=== PATIENT | female | born 1940 | race Caucasian/White ===

== ENCOUNTER 2017-01-24 18:32 | Emergency (ER) | payer OTHER, MEDICAID ==
[~2017-01-24] VITALS: Ht 157.5 cm; Wt 104.6 kg
[~2017-01-24 18:32] MED LIST: ACET-654 PO; ALIG4CAP PO; AMIO200T PO; ASPI81TA85 PO; B COTAB3 PO; CARA1TAB6 PO; CLAR10CA3 PO; DEXI30CA PO; DEXI30CA2 PO; DOC-8.6T PO; FERR325T3 PO; FIRS1SOL3 PO; METO12TA PO; METO25TA2 PO; MIRA33504 PO; NAME28CA PO; PAME10CA PO; SYNT100T PO; SYNT50TA PO; VITA200038 PO; WARF-22 PO; WARF-23 PO; WARF5TAB66 PO; [UNRECOGNIZED DRUG - OTHER] PO; [UNRECOGNIZED DRUG - OTHER] TD
[2017-01-24] MEDS ORDERED: DOCQ100C PO (18:42)
[2017-01-24] MEDS ORDERED: DEXI30CA2 PO (18:42)
[2017-01-24] MEDS ORDERED: COUM10TA PO (18:43)
[2017-01-24] MEDS ORDERED: LEVO88TA3 PO (18:43)
[2017-01-24] MEDS ORDERED: COUM7.5T PO (18:43)
[2017-01-24 19:13] VITALS: BP 142/76
== END 2017-01-24 19:26 | disposition home or self-care (01) ==
LOC: M ED 18:32
DX: K13.79 Other lesions of oral mucosa (principal); I10 Essential (primary) hypertension; I48.91 Unspecified atrial fibrillation; Z79.01 Long term (current) use of anticoagulants; Z88.0 Allergy status to penicillin

== ENCOUNTER 2017-01-25 00:23 | Emergency (ER) | payer OTHER, MEDICAID ==
[~2017-01-25] VITALS: Ht 157.5 cm; Wt 99.0 kg
[~2017-01-25 00:23] MED LIST changes: +COUM10TA PO; +COUM7.5T PO; +DOCQ100C PO; +LEVO88TA3 PO
[2017-01-25] MEDS: PHYTONADIONE INJection 5 MG in NS 50 ML IV ONE (03:22)
[2017-01-25 03:50] VITALS: BP 174/83
[2017-01-25] MEDS ORDERED: SILVER NITRATE APPLICATOR TOP ONE (04:15)
[2017-01-25] MEDS ORDERED: CETACAINE SPRAY 20GM (FLOOR STOCK) As Ordered ONE (04:21)
[2017-01-25] MEDS ORDERED: CETACAINE SPRAY 20GM (FLOOR STOCK) TOP ONE (04:30)
== END 2017-01-25 04:58 | disposition home or self-care (01) ==
LOC: M ED 00:23
DX: K13.79 Other lesions of oral mucosa (principal); K00.6 Disturbances in tooth eruption; I10 Essential (primary) hypertension; I25.10 Atherosclerotic heart disease of native coronary artery without angina pectoris; I48.91 Unspecified atrial fibrillation; Z79.01 Long term (current) use of anticoagulants; Z79.899 Other long term (current) drug therapy; Z88.0 Allergy status to penicillin
CPT/HCPCS: 96374; 99283; J3430

== ENCOUNTER → 2017-02-03 | Outpatient (REF) | payer OTHER, MEDICAID ==
[2017-02-03 19:36] LABS: VITAMIN B12 LEVEL > 2000 PG/ML (247-911)
[2017-02-15 00:07] LABS: ACETYLCHOLINE RCPTOR BINDING A < 0.03 nmol/L (0.00-0.24); STRIATIONAL ANTIBODIES Negative (Neg:<1:40)
== END ==
LOC: M LABNEURO 17:19
PROVIDERS: ATTEND Psychiatry & Neurology Neurology
DX: R51 Headache (principal); H53.2 Diplopia; E03.9 Hypothyroidism, unspecified

== ENCOUNTER → 2019-02-12 | Outpatient (CLI) | payer MEDICARE, MEDICAID ==
[~2019-02-12] MED LIST changes: +CALC1CAP31 PO; -DOCQ100C PO; +DOCQ100C5 PO; -FIRS1SOL3 PO; +FIRS50SO PO; +MACR100C43 PO; +MECL-68 PO; -METO12TA PO; +METO1TAB63 PO; +NORT10CA2 PO
--- NOTE | 2019-02-12 08:40 | REP ---
Clinical: Hypertension and chronic medical renal disease. Technique: Sainz scale and color Doppler evaluation of the kidneys and renal vasculature using curved array transducer. Findings: The kidneys are essentially normal in contour size and echogenicity and reniform shape without hydronephrosis, nephrolithiasis, cystic or renal mass lesion. Right kidney measures 8.9 x 5.8 x 4.2 cm. Left kidney measures 8.5 x 4.4 x 4.1 cm. Bladder is incompletely distended and grossly normal by current evaluation. Color Doppler evaluation of the renal vasculature demonstrates normal arterial wave patterns, velocities, renal aortic ratios, resistive indices and the acceleration time. No sonographic evidence for renal arterial stenosis noted. Renal vein is patent. Right Kidney: Peak arterial velocity: 199 cm/sec . Renal aortic ratio: 2.6. Resistive indices: 0.57 - 0.75. Acceleration times: 0.04 - 0.05. Left kidney: Peak arterial velocity: 115 cm/sec. Renal aortic ratio: 1.5. Resistive indices: 0.64 - 0.69. Acceleration times: 0.04 - 0.06. Impression: Chronic medical renal disease. Right sided renal arterial stenosis suggested. Electronically Signed by Gallo Bronson MD 02/12/2019 08:32 A
== END ==
LOC: M RAD 07:08
PROVIDERS: ATTEND Internal Medicine Nephrology
DX: N18.3 Chronic kidney disease, stage 3 (moderate) (principal); I15.0 Renovascular hypertension

== ENCOUNTER 2019-02-19 11:55 | Emergency (ER) | payer MEDICARE, MEDICAID ==
[~2019-02-19] VITALS: Ht 157.5 cm; Wt 95.7 kg
[~2019-02-19 11:55] MED LIST changes: -CALC1CAP31 PO; -MACR100C43 PO; -MECL-68 PO; -NORT10CA2 PO
[2019-02-19] MEDS ORDERED: CALC1CAP31 PO (12:15)
[2019-02-19] MEDS ORDERED: NORT10CA2 PO (12:15)
[2019-02-19 16:46] LABS: BASO # 0.1 10^3/uL (0.0-0.2); BASO % 0.8 % (0.0-1.0); EOS # 0.2 10^3/uL (0.0-0.50); EOS % 2.7 % (0.0-3.0); HEMATOCRIT 44.5 % (36.0-47.0); HEMOGLOBIN 14.2 g/dl (12.0-15.5); LYMPH # 1.4 10^3/uL (1.5-4.5); MEAN CORPUSCULAR HEMOGLOBIN 29.9 pg (27.0-33.0); MEAN CORPUSCULAR HGB CONC 31.9 g/dl (32.0-36.5); MEAN CORPUSCULAR VOLUME 93.7 fl (80.0-96.0); MONO # 0.6 10^3/uL (0.0-0.8); MONO % 10.2 % (0.0-5.0); NEUTROPHILS # 3.8 10^3/uL (1.8-7.7); PLATELET COUNT, AUTOMATED 190 10^3/uL (150-450); RED BLOOD COUNT 4.75 10^6/uL (4.00-5.40)
[2019-02-19 17:20] LABS: CALCIUM LEVEL 9.7 MG/DL (8.8-10.2); CREATININE FOR GFR 2.75 MG/DL (0.55-1.30); GLOMERULAR FILTRATION RATE 17.7 (>32); POTASSIUM SERUM 5.3 MEQ/L (3.5-5.1)
[2019-02-19] MEDS ORDERED: NS 1,000 ML IV ONE (17:30)
[2019-02-19 18:03] LABS: APPEARANCE, URINE HAZY (CLEAR); BACTERIA, URINE AUTO 3+ (NEGATIVE); BILIRUBIN, URINE AUTO NEGATIVE (NEGATIVE); BLOOD, URINE BLOOD 2+ (NEGATIVE); COLOR, URINE YELLOW (YELLOW); GLUCOSE, URINE (UA) AUTO NEGATIVE (NEGATIVE); KETONE, URINE AUTO NEGATIVE (NEGATIVE); LEUKOCYTE ESTERASE, URINE AUTO 1+ (NEGATIVE); NITRITE, URINE AUTO NEGATIVE (NEGATIVE); PROTEIN, URINE AUTO NEGATIVE (NEGATIVE); RBC, URINE AUTO 3 /HPF (0-3); SPECIFIC GRAVITY URINE AUTO 1.008 (1.002-1.035); SQUAMOUS EPITHELIAL CELL UR AU 2 /HPF (0-6); UROBILINOGEN, URINE AUTO 0.2 mg/dL (0.0-2.0); WBC, URINE AUTO 19 /HPF (0-3)
[2019-02-19 20:25] VITALS: BP 108/59
[2019-02-19] MEDS ORDERED: MACR100C43 PO (20:33)
--- NOTE | 2019-02-20 08:08 | ECGEPIP ---
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
== END 2019-02-19 20:45 | disposition home or self-care (01) ==
LOC: M ED 11:55
DX: E86.0 Dehydration (principal); N39.0 Urinary tract infection, site not specified; I12.9 Hypertensive chronic kidney disease with stage 1 through stage 4 chronic kidney disease, or unspecified chronic kidney disease; N18.4 Chronic kidney disease, stage 4 (severe); I48.91 Unspecified atrial fibrillation; K21.9 Gastro-esophageal reflux disease without esophagitis; E03.9 Hypothyroidism, unspecified; Z79.899 Other long term (current) drug therapy; Z79.890 Hormone replacement therapy; Z79.01 Long term (current) use of anticoagulants; Z88.0 Allergy status to penicillin; Z88.1 Allergy status to other antibiotic agents; Z88.8 Allergy status to other drugs, medicaments and biological substances

== ENCOUNTER 2019-02-21 21:14 | Emergency (ER) | payer MEDICARE, MEDICAID ==
[~2019-02-21] VITALS: Ht 157.5 cm; Wt 95.5 kg
[~2019-02-21 21:14] MED LIST changes: +CALC1CAP31 PO; +MACR100C43 PO; +NORT10CA2 PO
[2019-02-21] MEDS ORDERED: NS 1,000 ML IV SCH (21:47)
[2019-02-21 21:57] LABS: BASO % 0.6 % (0.0-1.0); EOS # 0.2 10^3/uL (0.0-0.50); EOS % 3.2 % (0.0-3.0); HEMATOCRIT 41.3 % (36.0-47.0); HEMOGLOBIN 12.9 g/dl (12.0-15.5); LYMPH # 1.3 10^3/uL (1.5-4.5); LYMPH % 18.3 % (24.0-44.0); MEAN CORPUSCULAR HGB CONC 31.2 g/dl (32.0-36.5); MONO # 0.8 10^3/uL (0.0-0.8); MONO % 11.1 % (0.0-5.0); NEUTROPHILS # 4.5 10^3/uL (1.8-7.7); NEUTROPHILS % 66.4 % (36.0-66.0); PLATELET COUNT, AUTOMATED 185 10^3/uL (150-450); WHITE BLOOD COUNT 6.8 10^3/uL (4.0-10.0)
[2019-02-21] MEDS ORDERED: MECLIZINE 25 MG TABLET PO ONE (22:00)
[2019-02-21 22:22] LABS: ACETAMINOPHEN LEVEL < 2.0 UG/ML (10.0-30.0); ALBUMIN 3.6 GM/DL (3.2-5.2); ALT/SGPT 30 U/L (12-78); BILIRUBIN,DIRECT 0.1 MG/DL (0.0-0.2); BILIRUBIN,TOTAL 0.3 MG/DL (0.2-1.0); BLOOD UREA NITROGEN 54 MG/DL (7-18); CALCIUM LEVEL 8.8 MG/DL (8.8-10.2); CARBON DIOXIDE LEVEL 21 MEQ/L (21-32); CHLORIDE LEVEL 107 MEQ/L (98-107); CK-MB VALUE MASS 1.5 NG/ML (<3.6); CPK CREATINE PHOSPHOKINASE 59 U/L (26-192); CREATININE FOR GFR 2.63 MG/DL (0.55-1.30); GLOMERULAR FILTRATION RATE 18.6 (>32); GLUCOSE, FASTING 91 MG/DL (70-100); MB/CK RELATIVE INDEX 2.54 (< OR =4); POTASSIUM SERUM 4.7 MEQ/L (3.5-5.1); SALICYLATE LEVEL < 1.7 MG/DL (5.0-30.0); SODIUM LEVEL 137 MEQ/L (136-145); TOTAL PROTEIN 7.4 GM/DL (6.4-8.2); TROPONIN I < 0.02 NG/ML (< 0.10)
--- NOTE | 2019-02-21 22:30 | REPVR ---
EXAM: CT Head Without Contrast EXAM DATE/TIME: 02/21/2019 10:14 PM CLINICAL HISTORY: 78 years old, female; Altered mental status/memory loss TECHNIQUE: Imaging protocol: Computed tomography images of the head without contrast. Radiation optimization: All CT scans at this facility use at least one of these dose optimization techniques: automated exposure control; mA and/or kV adjustment per patient size (includes targeted exams where dose is matched to clinical indication); or iterative reconstruction. COMPARISON: CT Head without contrast 06/30/2012 11:18 AM FINDINGS: Brain: Moderate parenchymal atrophy consistent with patient age. No significant white matter disease. Ventricles: The degree of ventricular dilatation is normal for age. No pathologic enlargement demonstrated. Bones/joints: Unremarkable. No acute fracture. Sinuses: Visualized sinuses are unremarkable. No fluid levels. Mastoid air cells: Visualized mastoid air cells are well aerated. No mastoid effusion. Soft tissues: Unremarkable. IMPRESSION: No acute findings. Electronically signed by: Jose Marroquin On 02/21/2019 22:29:54 PM
[2019-02-21 22:46] VITALS: BP 143/63
[2019-02-21] MEDS ORDERED: MECL-68 PO (22:52)
--- NOTE | 2019-02-22 05:45 | ECGEPIP ---
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
== END 2019-02-21 23:33 | disposition home or self-care (01) ==
LOC: M ED 21:14
DX: R42 Dizziness and giddiness (principal); I48.91 Unspecified atrial fibrillation; I10 Essential (primary) hypertension; K21.9 Gastro-esophageal reflux disease without esophagitis; E03.9 Hypothyroidism, unspecified; N18.9 Chronic kidney disease, unspecified; Z79.01 Long term (current) use of anticoagulants; Z79.899 Other long term (current) drug therapy; Z88.0 Allergy status to penicillin; Z88.1 Allergy status to other antibiotic agents; Z88.8 Allergy status to other drugs, medicaments and biological substances
CPT/HCPCS: 70450; 80048; 80076; 81001; 82140; 82550; 82553; 84443; 84484; 85025; 93005; 93041; 94760; 96360; 99284; G0480

== ENCOUNTER → 2019-03-30 | Outpatient (REF) | payer MEDICARE, MEDICAID ==
[~2019-03-30] MED LIST changes: +MECL-68 PO
[2019-03-30 17:12] LABS: FOLATE 8.6 NG/ML
[2019-04-04 15:15] LABS: VITAMIN B1 LEVEL WHOLE BLOOD 262.8 nmol/L (66.5-200.0); VITAMIN B6,PYRIDOXAL PHOSPHATE 4.7 ug/L (2.0-32.8); VITAMIN E(ALPHA TOCOPHEROL) 11.3 mg/L (9.0-29.0); VITAMIN E(GAMMA TOCOPHEROL) 1.6 mg/L (0.5-4.9)
== END ==
LOC: M LAB REF 16:33
PROVIDERS: ATTEND Family Medicine
DX: E53.8 Deficiency of other specified B group vitamins (principal)

== ENCOUNTER 2019-05-24 13:26 | Emergency (ER) | payer MEDICARE, MEDICAID ==
[~2019-05-24] VITALS: Ht 157.5 cm; Wt 91.8 kg
[~2019-05-24 13:26] MED LIST changes: +NIFE60TA40 PO; +TRIA37.53 PO
[2019-05-24 14:18] LABS: BASO % 0.6 % (0.0-1.0); EOS # 0.2 10^3/uL (0.0-0.5); EOS % 2.9 % (0.0-3.0); HEMATOCRIT 39.9 % (36.0-47.0); HEMOGLOBIN 12.3 g/dl (12.0-15.5); LYMPH # 1.2 10^3/uL (1.5-5.0); LYMPH % 19.5 % (24.0-44.0); MEAN CORPUSCULAR HEMOGLOBIN 30.8 pg (27.0-33.0); MEAN CORPUSCULAR HGB CONC 30.8 g/dl (32.0-36.5); MEAN CORPUSCULAR VOLUME 99.8 fl (80.0-96.0); MONO # 0.5 10^3/uL (0.0-0.8); NEUTROPHILS # 4.3 10^3/uL (1.5-8.5); NEUTROPHILS % 68.7 % (36.0-66.0); PLATELET COUNT, AUTOMATED 183 10^3/uL (150-450); WHITE BLOOD COUNT 6.2 10^3/uL (4.0-10.0)
[2019-05-24 14:38] VITALS: BP 163/83
[2019-05-24 14:47] LABS: ALBUMIN 3.4 GM/DL (3.2-5.2); ALT/SGPT 22 U/L (12-78); BILIRUBIN,DIRECT 0.1 MG/DL (0.0-0.2); BILIRUBIN,TOTAL 0.3 MG/DL (0.2-1.0); BLOOD UREA NITROGEN 44 MG/DL (7-18); CALCIUM LEVEL 8.4 MG/DL (8.8-10.2); CARBON DIOXIDE LEVEL 21 MEQ/L (21-32); CHLORIDE LEVEL 113 MEQ/L (98-107); CK-MB VALUE MASS 1.4 NG/ML (<3.6); CPK CREATINE PHOSPHOKINASE 60 U/L (26-192); CREATININE FOR GFR 1.98 MG/DL (0.55-1.30); GLOMERULAR FILTRATION RATE 25.8 (>32); GLUCOSE, FASTING 97 MG/DL (70-100); MB/CK RELATIVE INDEX 2.33 (< OR =4); POTASSIUM SERUM 4.7 MEQ/L (3.5-5.1); SODIUM LEVEL 142 MEQ/L (136-145); TOTAL PROTEIN 7.4 GM/DL (6.4-8.2); TROPONIN I < 0.02 NG/ML (< 0.10)
[2019-05-24 15:38] VITALS: BP 157/76
[2019-05-24] MEDS ORDERED: NAME28CA PO (23:38)
[2019-05-24] MEDS ORDERED: NORT10CA2 PO (23:38)
[2019-05-24] MEDS ORDERED: METO25TA4 PO (23:38)
[2019-05-24] MEDS ORDERED: WARF-23 PO ×2 (23:38)
[2019-05-24] MEDS ORDERED: VITA50005 PO (23:38)
[2019-05-24] MEDS ORDERED: DOCU100C16 PO (23:38)
[2019-05-24] MEDS ORDERED: NIFE60TA40 PO (23:38)
--- NOTE | 2019-05-25 07:54 | ECGEPIP ---
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
== END 2019-05-24 15:40 | disposition home or self-care (01) ==
LOC: M ED 13:26
DX: I10 Essential (primary) hypertension (principal); I48.91 Unspecified atrial fibrillation; I45.89 Other specified conduction disorders; N18.9 Chronic kidney disease, unspecified; I51.9 Heart disease, unspecified; Z79.01 Long term (current) use of anticoagulants; Z79.899 Other long term (current) drug therapy; Z88.0 Allergy status to penicillin; Z88.8 Allergy status to other drugs, medicaments and biological substances

== ENCOUNTER 2019-05-24 22:19 | Inpatient (IN) | payer MEDICARE, MEDICAID ==
[~2019-05-24] VITALS: Ht 157.5 cm; Wt 90.9 kg
[2019-05-24 23:25] LABS: CK-MB VALUE MASS 1.2 NG/ML (<3.6); CPK CREATINE PHOSPHOKINASE 67 U/L (26-192); MB/CK RELATIVE INDEX 1.79 (< OR =4); TROPONIN I < 0.02 NG/ML (< 0.10)
[2019-05-24] MEDS ORDERED: NIFE60TA40 PO (23:38)
[2019-05-24] MEDS ORDERED: DOCU100C16 PO (23:38)
[2019-05-24] MEDS ORDERED: WARF-23 PO ×2 (23:38)
[2019-05-24] MEDS ORDERED: VITA50005 PO (23:38)
[2019-05-24] MEDS ORDERED: METO25TA4 PO (23:38)
[2019-05-24] MEDS ORDERED: NAME28CA PO (23:38)
[2019-05-24] MEDS ORDERED: NORT10CA2 PO (23:38)
[2019-05-24] MEDS ORDERED: ACETAMINOPHEN TAB 650MG DOSE (2X325MG) PO PRN (23:45)
--- NOTE | 2019-05-24 23:58 | HPEPDOC ---
[facility] Medical History & Physical Date of Admission May 24, 2019 Date of Service: May 24, 2019 Attending Physician: BLANCA BILLINGSLEY MD History and Physical CHIEF COMPLAINT: hypotension HISTORY OF PRESENT ILLNESS: Lavinia Luis is an 78 YO F with history of AF & CKDIV who presents to the ED for the third time in 3 days with complaints of lightheadedness, dizziness, and low blood pressure. She first reported to the ED on 05/23/2019 for hypotension of 77/45 in the setting of recent initiation of nifedipine ER 60 mg therapy by nephrology for hypertension. She was stabilized, sent home and returned back on the morning of 05/24/2019 with hypertension. She was given Cardizem 15 mg IV and sent home. This evening she reported lightheadedness and dizziness and generalized pain, which prompted a third ER visit where she was found to have a pressure 104/60. She is admitted for blood pressure monitoring and adjustment of medications at this time. REVIEW OF SYSTEMS: CONSTITUTIONAL: Reports some lightheadedness, dizziness HEENT: denies vision changes, no sinus problems, denies any trouble swallowing CARDIOVASCULAR: no palpitations RESPIRATORY: Denies any shortness of breath GENITOURINARY: No dysuria MUSCULOSKELETAL: Denies any joint/muscle pain GASTROINTESTINAL: Denies abdominal pain, no nausea/vomiting/diarrhea SKIN: No new rashes or lesions NEUROLOGICAL: No loss of sensation PSYCHIATRIC: Reports normal mood, no delusions or hallucinations ENDOCRINE: No hot/cold intolerance HEMATOLOGIC/LYMPHATIC: No easy bruising, no lumps/bumps ALLERGIC/IMMUNOLOGIC: No sinus symptoms PMHx: CKD Hiatal hernia Hypertension Iron deficiency anemia Paroxysmal atrial fibrillation with cardioversion 3 on Coumadin Hypothyroidism History of C. 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 HOME MEDICATIONS: Please see below. PHYSICAL EXAMINATION: VITAL SIGNS: Please see below. GENERAL APPEARANCE: Laying in bed, appears stated age, no acute distress, calm, cooperative HEENT: EOMI, PERRLA, neck is supple with no thyromegaly or lymphadenopathy RESPIRATORY: Lungs are clear to auscultation bilaterally with no adventitious breath sounds appreciated CARDIOVASCULAR: no JVD, irregularly irregular heart beat,no murmurs/rubs/gallops ABDOMEN: Soft, nontender to palpation in all four quadrants, no masses/organomegaly EXTREMITIES: no clubbing, cyanosis or edema noted NEUROLOGICAL: No obvious focal deficits PSYCHIATRIC: normal mood/affect Skin: No rashes or ulcers. LN: No significant cervical or inguinal lymphadenopathy LABORATORY DATA: See below. IMAGING: None MICROBIOLOGY: Please see below. ASSESSMENT: This is an 78-year-old female with atrial fibrillation and CKD4, who presents with hypotension secondary to medication side effect and will be admitted for observation overnight. PLAN: 1. Hypotension: Patient is symptomatic at this time. Likely secondary to new medication, nifedipine started last Friday. -Will hold nifedipine at this time -Holding metoprolol for the time being -Every 4 hour blood pressure checks -Continuous telemetry 2. Atrial fibrillation on Coumadin: -Rate is controlled at this time. Holding metoprolol but will restart if needed -Patient will reportedly be switched to Eliquis by nephrology in the near future 3. Hypothyroidism: -Continue home levothyroxine 4.. GERD: -Continue home Carafate 5. Iron deficiency anemia: -Continue ferrous sulfate 6. CKD4: -Will work towards optimal blood pressure control 7. Alzheimer's disease: -Continue home Namenda 8.Obesity BMI 36.7 complicates care DISPO: likely home tomorrow Vital Signs Vital Signs Date Time Temp Pulse Resp B/P (MAP) Pulse Ox O2 Delivery O2 Flow Rate FiO2 05/24/19 22:23 97.5 61 18 104/60 96 Room Air Laboratory Data Labs 24H Laboratory Tests 2 05/24/19 22:45: Home Medications Scheduled Bifidobacterium Infantis (Align) 4 Mg Cap, 4 MG PO DAILY Calcitriol (Calcitriol) 0.25 Mcg Capsule, 0.25 MCG PO DAILY Cholecalciferol (Vitamin D3) (Vitamin D3) 2,000 Unit Tab, 2,000 UNIT PO DAILY Docusate Sodium (Docusate Sodium) 100 Mg Capsule, 100 MG PO BID Ergocalciferol (Vitamin D2) (Vitamin D2) 50,000 Unit Capsule, 50,000 UNIT PO Q2WK EVERY OTHER FRIDAY Ferrous Sulfate (Ferrous Sulfate) 325 Mg Tab, 325 MG PO DAILY Levothyroxine Sodium (Levothyroxine Sodium) 88 Mcg Tab, 88 MCG PO DAILY Memantine HCl (Namenda Xr) 28 Mg Cap.spr.24, 28 MG PO DAILY Metoprolol Tartrate (Metoprolol Tartrate) 25 Mg Tablet, 12.5 MG PO BID Nifedipine (Nifedipine ER) 60 Mg Tablet.er, 60 MG PO DAILY Nortriptyline HCl (Nortriptyline HCl) 10 Mg Capsule, 10 MG PO QHS Sucralfate (Carafate) 1 Gm Tab, 1 GM PO DAILY Warfarin Sodium (Warfarin Sodium) 5 Mg Tablet, 7.5 MG PO 3XW FRIDAY, FRIDAY AND FRIDAY Warfarin Sodium (Warfarin Sodium) 5 Mg Tablet, 10 MG PO 4XWK FRIDAY, FRIDAY, FRIDAY AND FRIDAY Allergies Coded Allergies: Penicillins (Verified Allergy, Intermediate, hives, 05/24/19) clindamycin (Verified Adverse Reaction, Unknown, abdominal pain, 05/24/19) triamterene (Verified Adverse Reaction, Unknown, "couldn't hold my head up", 05/24/19) A-FIB/CHADSVASC A-FIB History Current/History of A-Fib/PAF?: Yes Current PO Anticoag Therapy: Yes GME ATTESTATION GME ATTESTATION My faculty preceptor for this patient encounter was physically present during the encounter and was fully available. All aspects of the patient interview, examination, medical decision making process, and medical care plan development were reviewed and approved by the faculty preceptor. The faculty preceptor is aware and concurs with the plan as stated in the body of this note and will attest to such by his/her cosignature. ATTENDING NOTE I saw at 1150PM, discussed the case with and agree with the following with the addition of the following: The history was obtained from Simone Grant who has evaluated the patient in the ER several times over the last few days. is an 78 yr old F w a PMH of HTN Afib and Hypothyroidism who was started on nifedipine 60mg daily on Friday bc her BP was high while taking Metoprolol 12.5mg BID. On Sat she came to the hospital because she was not feeling well and was found to have a BP of 77/45; she was given IVF and told to hold her nifedipine. On Friday she checked her BP and found that it was 199/110 she took her nifedipine and then came to the hospital; at the time she didn't have a RIBEIRO, CP or any other symptoms; her EKG and trop were unremarkable; she was given 15mg of IV cardizem and her BP improved to approx 130/70; prior to being discharged her repeat BP was 156/76. When she got home she did not feel well and decided to come to the ER again; on re-evaluation her BP was 104/60. #Symptomatic Hypotension Likely due to ADR to meds as she took Metoprolol Tartrate 12.5mg BID and, Nifedipine 60mg before coming to the ED and where she received 15mg of IV Cardizem. Plan: We will admit her for observation overnight, resume Metoprolol 12.25mg and Nifedpine 30mg ER (which is half the normal dose) in the morning and resume her nifedipine at a lower dose (30mg daily) rather than 60mg daily. She can follow up with or her PCP for an ambulatory blood pressure monitor. RJ NIETO MD May 24, 2019 23:00 BLANCA BILLINGSLEY MD May 25, 2019 00:28
[2019-05-25] VITALS (11 sets, daily range): BP systolic 104–176; BP diastolic 57–97
[2019-05-25 00:33] LABS: HEMATOCRIT 39.7 % (36.0-47.0); MEAN CORPUSCULAR HEMOGLOBIN 30.7 pg (27.0-33.0); MEAN CORPUSCULAR HGB CONC 30.2 g/dl (32.0-36.5); MEAN CORPUSCULAR VOLUME 101.5 fl (80.0-96.0); PLATELET COUNT, AUTOMATED 173 10^3/uL (150-450); RED BLOOD COUNT 3.91 10^6/uL (4.00-5.40)
[2019-05-25 01:11] LABS: ALBUMIN 3.3 GM/DL (3.2-5.2); BILIRUBIN,TOTAL 0.3 MG/DL (0.2-1.0); CALCIUM LEVEL 8.6 MG/DL (8.8-10.2); CREATININE FOR GFR 2.24 MG/DL (0.55-1.30); GLOMERULAR FILTRATION RATE 22.4 (>32); POTASSIUM SERUM 4.8 MEQ/L (3.5-5.1); TOTAL PROTEIN 7.1 GM/DL (6.4-8.2)
[2019-05-25 06:37] LABS: INR 3.07; PROTHROMBIN TIME 31.6 SECONDS (11.8-14.0)
[2019-05-25] MEDS: FERROUS SULFATE 325MG TAB PO SCH (08:32)
[2019-05-25] MEDS: CALCITRIOL 0.25 MCG CAP (S0169) PO SCH (08:32)
[2019-05-25] MEDS: LEVOTHYROXINE 88MCG TABLET (0.088 MG) PO SCH (08:32)
[2019-05-25] MEDS: SUCRALFATE 1 GM TAB PO SCH (08:32)
[2019-05-25] MEDS: VITAMIN D 1,000 INTERNATIONAL UNITS TABLET PO SCH (08:32)
[2019-05-25] MEDS: DOCUSATE SODIUM 100 MG CAP PO SCH ×2 (08:32→20:54)
[2019-05-25] MEDS: WARFARIN SOD 5 MG TAB PO SCH (16:24)
--- NOTE | 2019-05-25 19:58 | IPNPDOC ---
Text Note Date of Service The patient was seen on 05/25/19. NOTE Subjective: -Feels ok, no complaints but concerned about potential discharge without fixing her labile BPs and the failed outpatient optimization -Daughter Mid PM had +orthostatic vitals for BP without corresponding changes in HR and has been labile throughout the day, asymptomatic throughout Objective: VITAL SIGNS: See below. Hemodynamically stable but labile throughout the day, afebrile, normal rate, stable on room air GENERAL APPEARANCE: Laying in bed comfortably, no acute distress, calm, cooperative, engaged in conversation HEENT: NCAT, EOMI, PERRLA, neck is supple with no thyromegaly or lymphadenopathy RESPIRATORY: Lungs are clear to auscultation bilaterally with no rales, rhonchi or wheezing CARDIOVASCULAR: no JVD, irregularly irregular heart beat,no murmurs/rubs/gallops ABDOMEN: Normoactive bowel sounds, soft, nontender to palpation, no masses/organomegaly palpated EXTREMITIES: No LE edema, WWP with palpable DP pulses NEUROLOGICAL: No obvious focal deficits PSYCHIATRIC: normal mood/affect Skin: No rashes or ulcers, with LE varicosities noted LABORATORY DATA: See below. Reviewed. Cr 2.24 essentially at baseline. CBC wnl. IMAGING: None MICROBIOLOGY: Please see below. ASSESSMENT: 78-year-old female with atrial fibrillation and CKD4, who presents with hypotension shortly after starting nifedipine for hypertension and noted to have some labile BPs today with inconsistent asymptomatic orthostatic vitals currently admitted for BP medication optimization. PLAN: 1. Hypotension: Patient is asymptomatic at this time. -Continue holding nifedipine at this time -Restarted metoprolol and will monitor and consider starting nifedipine at a lower dose after noted baseline on metoprolol provided orthostatics remain negative and there is no lability. -Continue Q4H BP checks -Continue telemetry 2. Atrial fibrillation on Coumadin: -Rate is controlled at this time. -Will not restart metop -Nephrology plan had been to switch to Eliquis but for now is therapeutic on warfarin and will continue it per outpatient script 3. Hypothyroidism: -Continue home levothyroxine 4.. GERD: -Continue home Carafate 5. Iron deficiency anemia: -Continue ferrous sulfate 6. CK D4: -stable 7. Alzheimer's disease: -Continue home Namenda DISPO: Pending improvement in BP on stable dose of medication Qing GIBSON I+O VS, Fishbone, I+O Laboratory Tests 05/25/19 00:25 Vital Signs Date Time Temp Pulse Resp B/P (MAP) Pulse Ox O2 Delivery O2 Flow Rate FiO2 05/25/19 18:44 97.5 75 16 130/65 (86) 100 Room Air MARLENE CELESTIN MD May 25, 2019 19:57
[2019-05-25] MEDS: METOPROLOL TART 12.5 MG PER 1/2 TAB PO SCH (20:53)
[2019-05-25] MEDS: NORTRIPTYLINE 10 MG CAP PO SCH (20:53)
--- NOTE | 2019-05-25 23:11 | ECGEPIP ---
[facility] - ED Test Date: 2019-05-24 Pat Name: CASTILLO SEBASTIAN Department: Room: [place] [address] Gender: Female Brainer: bridgette : 1940 Requested By: MAHENDRA LE Order Number: [id number] Reading MD: Hakan Vela Measurements Intervals [place] Rate: 68 P: [place]: 0 QRS: 13 QRSD: 87 T: 56 QT: 417 QTc: 446 Interpretive Statements ATRIAL FIBRILLATION NSTTW ABNORMALITIES SIMILAR TO PRIOR ON SAME DATE Electronically Signed on 05-25-2019 23:10:51 EST by Hakan Vela
[2019-05-26] VITALS (10 sets, daily range): BP systolic 91–178; BP diastolic 62–104
[2019-05-26] MEDS: LEVOTHYROXINE 88MCG TABLET (0.088 MG) PO SCH (05:34)
[2019-05-26 06:23] LABS: HEMATOCRIT 41.6 % (36.0-47.0); HEMOGLOBIN 12.6 g/dl (12.0-15.5); MEAN CORPUSCULAR HEMOGLOBIN 30.4 pg (27.0-33.0); MEAN CORPUSCULAR HGB CONC 30.3 g/dl (32.0-36.5); MEAN CORPUSCULAR VOLUME 100.5 fl (80.0-96.0); PLATELET COUNT, AUTOMATED 174 10^3/uL (150-450); RED BLOOD COUNT 4.14 10^6/uL (4.00-5.40); WHITE BLOOD COUNT 5.5 10^3/uL (4.0-10.0)
[2019-05-26 06:36] LABS: INR 2.94; PROTHROMBIN TIME 30.5 SECONDS (11.8-14.0)
[2019-05-26 06:51] LABS: CALCIUM LEVEL 9.4 MG/DL (8.8-10.2); CREATININE FOR GFR 1.96 MG/DL (0.55-1.30); GLOMERULAR FILTRATION RATE 26.1 (>32); POTASSIUM SERUM 4.8 MEQ/L (3.5-5.1)
[2019-05-26] MEDS: SUCRALFATE 1 GM TAB PO SCH ×2 (09:00→09:36)
[2019-05-26] MEDS: VITAMIN D 1,000 INTERNATIONAL UNITS TABLET PO SCH (09:36)
[2019-05-26] MEDS: CALCITRIOL 0.25 MCG CAP (S0169) PO SCH (09:37)
[2019-05-26] MEDS: DOCUSATE SODIUM 100 MG CAP PO SCH ×2 (09:37→20:56)
[2019-05-26] MEDS: FERROUS SULFATE 325MG TAB PO SCH (09:37)
[2019-05-26] MEDS: METOPROLOL TART 12.5 MG PER 1/2 TAB PO SCH ×2 (09:38→20:56)
--- NOTE | 2019-05-26 16:09 | IPNPDOC ---
Text Note Date of Service The patient was seen on 05/26/19. NOTE Subjective: Today denies any dizziness or light headedness. However very pos itive for orthostatic hypotension with supine hypertension[facility] Objective: VITAL SIGNS: See below. GENERAL APPEARANCE: Siting up in chair in no acute distress, calm, cooperative, engaged in conversation HEENT: NCAT, EOMI, PERRLA, neck is supple with no thyromegaly or lymphadenopathy RESPIRATORY: Lungs are clear to auscultation bilaterally with no rales, rhonchi or wheezing CARDIOVASCULAR: no JVD, irregularly irregular heart beat,no murmurs/rubs/gallops ABDOMEN: Normoactive bowel sounds, soft, nontender to palpation, no masses/organomegaly palpated EXTREMITIES: No LE edema, WWP with palpable DP pulses NEUROLOGICAL: No obvious focal deficits PSYCHIATRIC: normal mood/affect Skin: No rashes or ulcers, with LE varicosities noted LABORATORY DATA reviewed : See below ASSESSMENT: 78-year-old female with atrial fibrillation and CKD4, who presents with hypotension shortly after starting nifedipine for hypertension and noted to have some labile BPs today with inconsistent asymptomatic orthostatic vitals currently admitted for BP medication optimization. Hypotension resolved after stopping nifedipine. in fact has supine hypertension. However continues to have orthostatic hypotension though no symptoms. continue metoprolol Have consulted Nephrology on Tele. Atrial fibrillation on Coumadin: rate controlled will continue metoprolol Hypothyroidism: Continue home levothyroxine GERD: Continue home Carafate Iron deficiency anemia: Continue ferrous sulfate CKD4: stable Alzheimer's disease: Continue home Namenda DISPO: Pending improvement in BP on stable dose of medication VSQing, I+O VSQing, I+O Laboratory Tests 05/26/19 05:58 Vital Signs Date Time Temp Pulse Resp B/P (MAP) Pulse Ox O2 Delivery O2 Flow Rate FiO2 05/26/19 14:38 60 156/74 (101) 66 154/74 (100) 66 97/62 (74) 05/26/19 13:45 96.6 16 100 Room Air I&O- Last 24 Hours up to 6 AM 05/26/19 06:00 Intake Total 2470 ml Output Total 0 ml Balance 2470 ml HILL SALOMON MD May 26, 2019 16:09
[2019-05-26] MEDS ORDERED: WARFARIN SOD 5 MG TAB PO SCH (17:00)
[2019-05-26] MEDS: MEMANTINE 28 MG PO SCH (17:25)
[2019-05-26] MEDS: NORTRIPTYLINE 10 MG CAP PO SCH (20:56)
[2019-05-27 02:00] VITALS: BP 144/82
[2019-05-27] MEDS: LEVOTHYROXINE 88MCG TABLET (0.088 MG) PO SCH (05:51)
[2019-05-27 06:00] VITALS: BP_SYST 103; BP_SYST 156; BP_SYST 162; BP_SYST 165; BP_DIAS 74; BP_DIAS 82; BP_DIAS 83
[2019-05-27 06:38] LABS: HEMATOCRIT 38.3 % (36.0-47.0); HEMOGLOBIN 11.6 g/dl (12.0-15.5); MEAN CORPUSCULAR HEMOGLOBIN 30.2 pg (27.0-33.0); MEAN CORPUSCULAR HGB CONC 30.3 g/dl (32.0-36.5); MEAN CORPUSCULAR VOLUME 99.7 fl (80.0-96.0); PLATELET COUNT, AUTOMATED 162 10^3/uL (150-450); RED BLOOD COUNT 3.84 10^6/uL (4.00-5.40); WHITE BLOOD COUNT 5.4 10^3/uL (4.0-10.0)
[2019-05-27 06:46] LABS: INR 3.1; PROTHROMBIN TIME 31.9 SECONDS (11.8-14.0)
--- NOTE | 2019-05-27 06:50 | ECGEPIP ---
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
[2019-05-27 07:08] LABS: CALCIUM LEVEL 8.7 MG/DL (8.8-10.2); CREATININE FOR GFR 1.89 MG/DL (0.55-1.30); GLOMERULAR FILTRATION RATE 27.2 (>32); POTASSIUM SERUM 4.8 MEQ/L (3.5-5.1)
[2019-05-27] MEDS: CALCITRIOL 0.25 MCG CAP (S0169) PO SCH (09:41)
[2019-05-27] MEDS: DOCUSATE SODIUM 100 MG CAP PO SCH ×2 (09:41→20:28)
[2019-05-27] MEDS: MEMANTINE 28 MG PO SCH (09:41)
[2019-05-27] MEDS: FERROUS SULFATE 325MG TAB PO SCH (09:41)
[2019-05-27] MEDS: VITAMIN D 1,000 INTERNATIONAL UNITS TABLET PO SCH (09:42)
[2019-05-27] MEDS: METOPROLOL TART 12.5 MG PER 1/2 TAB PO SCH ×2 (09:42→20:29)
[2019-05-27] MEDS: SUCRALFATE 1 GM TAB PO SCH (09:42)
[2019-05-27 14:00] VITALS: BP 162/76
[2019-05-27 14:20] VITALS: BP_SYST 100; BP_SYST 154; BP_SYST 160; BP_DIAS 62; BP_DIAS 74; BP_DIAS 78
--- NOTE | 2019-05-27 15:54 | IPNPDOC ---
Text Note Date of Service The patient was seen on 05/27/19. NOTE Subjective: Today denies any dizziness or light headedness. However very pos itive for orthostatic hypotension with supine hypertension. No other complaints. Objective: VITAL SIGNS: See below. GENERAL APPEARANCE: Siting up in chair in no acute distress, calm, cooperative, engaged in conversation HEENT: NCAT, EOMI, PERRLA, neck is supple with no thyromegaly or lymphadenopathy RESPIRATORY: Lungs are clear to auscultation bilaterally with no rales, rhonchi or wheezing CARDIOVASCULAR: no JVD, irregularly irregular heart beat,no murmurs/rubs/gallops ABDOMEN: Normoactive bowel sounds, soft, nontender to palpation, no masses/organomegaly palpated EXTREMITIES: No LE edema, WWP with palpable DP pulses NEUROLOGICAL: No obvious focal deficits PSYCHIATRIC: normal mood/affect Skin: No rashes or ulcers, with LE varicosities noted LABORATORY DATA reviewed : See below ASSESSMENT: 78-year-old female with atrial fibrillation and CKD4, who presents with hypotension shortly after starting nifedipine for hypertension and noted to have some labile BPs today with inconsistent asymptomatic orthostatic vitals currently admitted for BP medication optimization. Hypotension resolved after stopping nifedipine. in fact has supine hypertension. However continues to have orthostatic hypotension though no symptoms. She is at high risk for fall. continue metoprolol Have consulted Nephrology on Tele. Atrial fibrillation on Coumadin: rate controlled will continue metoprolol Hypothyroidism: Continue home levothyroxine GERD: Continue home Carafate Iron deficiency anemia: Continue ferrous sulfate CKD4: stable Alzheimer's disease: Continue home Namenda DISPO: Pending improvement in BP on stable dose of medication. luz lives alone with need supervision and home services to be set up. VS,Fishbone, I+O VS, Fishbone, I+O Laboratory Tests 05/27/19 06:17 Vital Signs Date Time Temp Pulse Resp B/P (MAP) Pulse Ox O2 Delivery O2 Flow Rate FiO2 05/27/19 14:00 97.3 60 17 162/76 (104) 98 Room Air I&O- Last 24 Hours up to 6 AM 05/27/19 06:00 Intake Total 1120 ml Balance 1120 ml HILL SALOMON MD May 27, 2019 15:54
[2019-05-27] MEDS: WARFARIN SOD 5 MG TAB PO SCH (17:11)
[2019-05-27] MEDS: NORTRIPTYLINE 10 MG CAP PO SCH (20:28)
--- NOTE | 2019-05-27 21:50 | CR ---
DATE OF NEPHROLOGY CONSULTATION: 05/27/2019 REQUESTING PHYSICIAN: Heide Lu MD REASON FOR CONSULTATION: Orthostatic hypotension. HISTORY OF PRESENT ILLNESS: Lavinia Luis is a previously unknown to me. She is an 78-year-old female established patient of Dr. Brandon Guillaume with a past medical history of chronic kidney disease (CKD), stage IV, atrial fibrillation, hypertension, anemia, hypothyroidism and other comorbid conditions mentioned below. The patient has had recurrent ER visits over the past week for lightheadedness and dizziness and feeling of presyncope. She was previously on metoprolol for rate control and blood pressure management. However at her last visit in the nephrology office her systolic blood pressure was found to range from 160-180 sitting and she was subsequently started on nifedipine 60 mg daily in addition to her metoprolol. The patient has since felt lightheaded and dizzy when she gets up and has been admitted since on May 24 for further blood pressure monitoring and adjustment of her antihypertensive. PAST MEDICAL HISTORY: CKD stage IV, hypertension, paroxysmal A fib, iron deficiency anemia, hypothyroidism, history of Clostridium (C.) difficile, secondary hyperparathyroidism of renal origin, mild dementia, neuropathy. ALLERGIES: PENICILLIN, CLINDAMYCIN and TRIAMTERENE. PAST SURGICAL HISTORY: Cardioversion times three, cholecystectomy, hysterectomy. Procedure related to gastric ulcers, appendectomy. 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 Denies alcohol, drugs or tobacco. HOME MEDICATIONS: Are reviewed and include calcitriol 0.25 mcg by mouth daily, vitamin D3 2000 units by mouth daily, docusate 100 mg by mouth twice a day, vitamin D2 50,000 units every other Friday, ferrous sulfate 325 mg by mouth daily, levothyroxine 88 mcg by mouth daily, memantine 28 mg by mouth daily, metoprolol 24.5 mg by mouth twice a day, nifedipine 60 mg by mouth daily recently started this prescription, nortriptyline 10 mg by mouth at bedtime, Carafate 1 gram by mouth daily and Coumadin. REVIEW OF SYSTEMS: Constitutional: She denies fevers, chills. Eyes: She denies visual changes or tearing. ENT: She denies rhinorrhea, epistaxis. Cardiac: She has a history of hypertension and paroxysmal A fib. She denies chest pain or palpitations. Lungs: She denies cough or hemoptysis or shortness of breath at rest. Gastrointestinal: She denies nausea, vomiting or diarrhea. Genitourinary: She denies hematuria or dysuria. Endocrine: She reports history of secondary hyperparathyroidism of renal origin and hypothyroidism. Musculoskeletal: She denies any new acute myalgias or arthralgias. Hematologic: She reports long-term anticoagulant use. She reports anemia and iron deficiency. Neurologic: She reports some lightheadedness and dizziness. She denies seizures and syncope. Skin: She denies any new rashes or ulcers. Remainder of review of systems is negative or as per HPI. PHYSICAL EXAMINATION Vital signs: Temperature 97.3, pulse 60, respiratory rate 17, blood pressures are reviewed extensively and I note that she has average supine blood pressure of 160s and then average systolic 160s. Average supine systolic blood pressure of 160s and then average standing systolic blood pressure of 100-110. Hence she has a 40 to 50 mmHg drop in systolic when going from supine to standing. Saturating 98% on room air. Review of intake and output (I and Os) shows a stable volume status. General: The patient is seen lying in bed awake, alert, oriented, comfortable elderly female in no acute distress. Extraocular muscles are intact. Tongue is moist. Neck is supple. Jugular veins are not elevated. Cardiac: Irregularly irregular heartbeat. No murmur. No edema in the peripheries. Lungs: Show symmetric air entry. No crackle, rale or rhonchus. Abdomen is soft and nontender. There are bowel sounds. Extremities are negative for edema, clubbing or cyanosis. Neurologic: She is oriented to person, place, situation. No focal deficits. Skin: Normal temperature and turgor. Psychiatric: Appropriate mood and effect. LABS: White count 5.4, hemoglobin 11.6, platelet 162, sodium 141, potassium 4.8, bicarbonate 21, BUN 39, creatinine 1.8. INPATIENT MEDICATIONS: Reviewed by myself. Tylenol as needed, calcitriol 0.25 mcg by mouth daily, docusate 100 mg by mouth twice a day, ferrous sulfate 325 mg by mouth daily, levothyroxine 88 mcg by mouth daily, Lopressor 12.5 mg by mouth twice a day, nortriptyline 10 mg by mouth at bedtime, sucralfate 1 gram by mouth daily, Namenda 1 capsule by mouth daily, vitamin D 2000 units by mouth daily and Coumadin. PROBLEMS: 1. Orthostatic hypotension. The patient has about a 40 to 50 point drop in systolic when going from supine to standing and this has been persistent. She was previously symptomatic and feeling lightheaded and dizzy when she was on combination metoprolol and nifedipine, however, since the nifedipine has been discontinued the patient is no longer symptomatic with her drop in systolic blood pressure. She has isolated supine hypertension. I would not treat her supine hypertension as it would worsen her orthostatic hypotension when standing. Would encourage the patient to try some maneuvers to decrease the risk of lightheadedness and falls such as sitting for several minutes clenching the calves before attempting to stand and keeping the head of the bed elevated while sleeping. I would only continue her on beta musa at this time without adding any additional antihypertensive agent as it can worsen the risk of her orthostatic symptoms. Otherwise, there is no additional pharmacologic measure that I would recommend for her supine hypertension - orthostatic hypotension. She likely has an autonomic failure and it has increased incidence of being observed in patient's with Parkinson's/dementia. 2. The patient is okay for discharge from nephrology point of view on metoprolol only with discontinuation of nifedipine, to follow up with the nephrology office on June [address] Brandon Guillaume.
[2019-05-27 22:00] VITALS: BP_SYST 140; BP_SYST 152; BP_SYST 98; BP_DIAS 61; BP_DIAS 79; BP_DIAS 90
[2019-05-28 02:00] VITALS: BP 100/64
[2019-05-28] MEDS: LEVOTHYROXINE 88MCG TABLET (0.088 MG) PO SCH (05:40)
[2019-05-28 06:00] VITALS: BP 117/82
[2019-05-28 06:14] LABS: HEMATOCRIT 36.1 % (36.0-47.0); HEMOGLOBIN 11.3 g/dl (12.0-15.5); MEAN CORPUSCULAR HEMOGLOBIN 30.7 pg (27.0-33.0); MEAN CORPUSCULAR HGB CONC 31.3 g/dl (32.0-36.5); MEAN CORPUSCULAR VOLUME 98.1 fl (80.0-96.0); PLATELET COUNT, AUTOMATED 160 10^3/uL (150-450); RED BLOOD COUNT 3.68 10^6/uL (4.00-5.40); WHITE BLOOD COUNT 5.6 10^3/uL (4.0-10.0)
[2019-05-28 06:33] LABS: INR 3.17; PROTHROMBIN TIME 32.5 SECONDS (11.8-14.0)
[2019-05-28 06:46] LABS: CREATININE FOR GFR 2.23 MG/DL (0.55-1.30); GLOMERULAR FILTRATION RATE 22.5 (>32); POTASSIUM SERUM 4.7 MEQ/L (3.5-5.1)
[2019-05-28 09:00] VITALS: BP 114/58
[2019-05-28] MEDS: METOPROLOL TART 12.5 MG PER 1/2 TAB PO SCH (09:00)
[2019-05-28] MEDS: SUCRALFATE 1 GM TAB PO SCH (09:00)
[2019-05-28 10:00] VITALS: BP 124/80
[2019-05-28] MEDS: CALCITRIOL 0.25 MCG CAP (S0169) PO SCH (10:12)
[2019-05-28] MEDS: VITAMIN D 1,000 INTERNATIONAL UNITS TABLET PO SCH (10:12)
[2019-05-28] MEDS: DOCUSATE SODIUM 100 MG CAP PO SCH (10:12)
[2019-05-28] MEDS: FERROUS SULFATE 325MG TAB PO SCH (10:12)
[2019-05-28 10:13] VITALS: BP_SYST 103; BP_SYST 114; BP_DIAS 58; BP_DIAS 60; BP_DIAS 62
[2019-05-28] MEDS: MEMANTINE 28 MG PO SCH (10:13)
--- NOTE | 2019-05-28 13:12 | DS.PDOC ---
Discharge Summary General Date of Admission May 26, 2019 at 10:04 Date of Discharge 05/28/19 Discharge Summary ADMITTING DIAGNOSES: Hypotension DISCHARGE DIAGNOSES: Resolved episode of orthostatic hypotension COMPLICATIONS/CHIEF COMPLAINT: Hypotension. HISTORY OF PRESENT ILLNESS: "78 YO F with history of AF & CKDIV who presents to the ED for the third time in 3 days with complaints of lightheadedness, dizziness, and low blood pressure. She first reported to the ED on 05/23/2019 for hypotension of 77/45 in the setting of recent initiation of nifedipine ER 60 mg therapy by nephrology for hypertension. She was stabilized, sent home and returned back on the morning of 05/24/2019 with hypertension. She was given Cardizem 15 mg IV and sent home. This evening she reported lightheadedness and dizziness and generalized pain, which prompted a third ER visit where she was found to have a pressure 104/60. She is admitted for blood pressure monitoring and adjustment of medications at this time." HOSPITAL COURSE: 78 y/o F initially came to ER for c/o lightheadedness/dizziness and was admitted for orthostatic hypotension. Home medication nifedipine was discontinued. Pt was also evaluated by PT and nephrology service during hospital stay and was found stable to be discharged home. Most probably this episode of orthostatic hypotension was related to Nifedipine. Pt was seen and examined at bedside on day of discharge. Pt stated that she is feeling fine and did not have any complaint. Pt was clinically and vitally stable at the time of discharge. PHYSICAL EXAMINATION ON DISCHARGE: VITAL SIGNS: Please see below. GENERAL: comfortable HEENT: oral mucosa moist NECK: supple CARDIOVASCULAR EXAMINATION: regular rate and rhythm RESPIRATORY EXAMINATION: clear to auscultation ABDOMINAL EXAMINATION: soft, non tender EXTREMITIES: No peripheral edema NEUROLOGICAL EXAMINATION: No focal deficit Vital Signs/I&Os Vital Signs Date Time Temp Pulse Resp B/P (MAP) Pulse Ox O2 Delivery O2 Flow Rate FiO2 05/28/19 10:13 59 114/58 (76) 62 114/62 (79) 66 103/60 (74) 05/28/19 10:00 97.4 18 99 Room Air I&O- Last 24 Hours up to 6 AM 05/28/19 06:00 Intake Total 400 ml Output Total 300 ml Balance 100 ml Laboratory Data Labs 24H Laboratory Tests 2 05/28/19 05:32: Nucleated Red Blood Cells % (auto) 0.0, Prothrombin Time 32.5H, Prothromb Time International Ratio 3.17, Anion Gap 6L, Glomerular Filtration Rate 22.5L, Ca lcium Level 9.0 CBC/BMP Laboratory Tests 05/28/19 05:32 Discharge Medications Scheduled Bifidobacterium Infantis (Align) 4 Mg Cap, 4 MG PO DAILY, (Reported) Calcitriol (Calcitriol) 0.25 Mcg Capsule, 0.25 MCG PO DAILY, (Reported) Cholecalciferol (Vitamin D3) (Vitamin D3) 2,000 Unit Tab, 2,000 UNIT PO DAILY, (Reported) Docusate Sodium (Docusate Sodium) 100 Mg Capsule, 100 MG PO BID, (Reported) Ergocalciferol (Vitamin D2) (Vitamin D2) 50,000 Unit Capsule, 50,000 UNIT PO Q2WK, (Reported) EVERY OTHER FRIDAY Ferrous Sulfate (Ferrous Sulfate) 325 Mg Tab, 325 MG PO DAILY, (Reported) Levothyroxine Sodium (Levothyroxine Sodium) 88 Mcg Tab, 88 MCG PO DAILY, (Reported) Memantine HCl (Namenda Xr) 28 Mg Cap.spr.24, 28 MG PO DAILY, (Reported) Metoprolol Tartrate (Metoprolol Tartrate) 25 Mg Tablet, 12.5 MG PO BID, (Reported) Nortriptyline HCl (Nortriptyline HCl) 10 Mg Capsule, 10 MG PO QHS, (Reported) Sucralfate (Carafate) 1 Gm Tab, 1 GM PO DAILY, (Reported) Warfarin Sodium (Warfarin Sodium) 5 Mg Tablet, 7.5 MG PO 3XW, (Reported) FRIDAY, FRIDAY AND FRIDAY Warfarin Sodium (Warfarin Sodium) 5 Mg Tablet, 10 MG PO 4XWK, (Reported) FRIDAY, FRIDAY, FRIDAY AND FRIDAY Allergies Coded Allergies: Penicillins (Verified Allergy, Intermediate, hives, 05/24/19) clindamycin (Verified Adverse Reaction, Unknown, abdominal pain, 05/24/19) triamterene (Verified Adverse Reaction, Unknown, "couldn't hold my head up", 05/24/19) MARIBELL DAVEY MD May 28, 2019 13:11
== END 2019-05-28 15:20 | disposition home health service (06) | DRG 312 ==
LOC: M ED 22:19 → M ED INP 22:20 → M MSPAV 05-25 15:55 → OBSVTOIN 05-26 10:04
PROVIDERS: ADMIT Internal Medicine; ATTEND Internal Medicine
DX: I95.2 Hypotension due to drugs (principal); N18.4 Chronic kidney disease, stage 4 (severe); N25.81 Secondary hyperparathyroidism of renal origin; R42 Dizziness and giddiness; I48.0 Paroxysmal atrial fibrillation; E03.9 Hypothyroidism, unspecified; K21.9 Gastro-esophageal reflux disease without esophagitis; T46.1X5A Adverse effect of calcium-channel blockers, initial encounter; D50.9 Iron deficiency anemia, unspecified; G30.9 Alzheimer's disease, unspecified; F02.80 Dementia in other diseases classified elsewhere, unspecified severity, without behavioral disturbance, psychotic disturbance, mood disturbance, and anxiety; G62.9 Polyneuropathy, unspecified; E66.9 Obesity, unspecified; Z68.36 Body mass index [BMI] 36.0-36.9, adult; I12.9 Hypertensive chronic kidney disease with stage 1 through stage 4 chronic kidney disease, or unspecified chronic kidney disease; Z90.49 Acquired absence of other specified parts of digestive tract; Z88.0 Allergy status to penicillin; Z88.1 Allergy status to other antibiotic agents; Z79.01 Long term (current) use of anticoagulants; Z88.8 Allergy status to other drugs, medicaments and biological substances; Z79.899 Other long term (current) drug therapy

== ENCOUNTER 2019-06-02 08:50 | Emergency (ER) | payer MEDICARE, MEDICAID ==
[~2019-06-02] VITALS: Ht 157.5 cm; Wt 95.9 kg
[~2019-06-02 08:50] MED LIST changes: +DOCU100C16 PO; +METO25TA4 PO; +VITA50005 PO
[2019-06-02 09:42] LABS: BASO % 0.7 % (0.0-1.0); EOS # 0.2 10^3/uL (0.0-0.5); EOS % 3.7 % (0.0-3.0); HEMATOCRIT 41.1 % (36.0-47.0); HEMOGLOBIN 12.5 g/dl (12.0-15.5); LYMPH % 17.3 % (24.0-44.0); MEAN CORPUSCULAR HEMOGLOBIN 30.3 pg (27.0-33.0); MEAN CORPUSCULAR HGB CONC 30.4 g/dl (32.0-36.5); MEAN CORPUSCULAR VOLUME 99.5 fl (80.0-96.0); MONO # 0.5 10^3/uL (0.0-0.8); MONO % 8.6 % (0.0-5.0); NEUTROPHILS # 3.9 10^3/uL (1.5-8.5); NEUTROPHILS % 69.3 % (36.0-66.0); PLATELET COUNT, AUTOMATED 180 10^3/uL (150-450); RED BLOOD COUNT 4.13 10^6/uL (4.00-5.40); WHITE BLOOD COUNT 5.7 10^3/uL (4.0-10.0)
--- NOTE | 2019-06-02 09:58 | REP ---
Two-view chest: 06/02/2019. Indication: Dyspnea. Cough. Comparison: 05/23/2019. Findings: The lungs are clear. There is no pleural effusion or pneumothorax. Cardiomegaly is redemonstrated. Multilevel spondylosis of the thoracic spine is present. Impression: No acute cardiopulmonary process. Electronically Signed by Franky Rodriguez DO 06/02/2019 09:49 A
[2019-06-02 10:20] LABS: ALBUMIN 3.3 GM/DL (3.2-5.2); ALT/SGPT 24 U/L (12-78); BILIRUBIN,DIRECT < 0.1 MG/DL (0.0-0.2); BILIRUBIN,TOTAL 0.3 MG/DL (0.2-1.0); BLOOD UREA NITROGEN 51 MG/DL (7-18); CALCIUM LEVEL 9.2 MG/DL (8.8-10.2); CARBON DIOXIDE LEVEL 23 MEQ/L (21-32); CHLORIDE LEVEL 114 MEQ/L (98-107); CPK CREATINE PHOSPHOKINASE 61 U/L (26-192); CREATININE FOR GFR 2.13 MG/DL (0.55-1.30); GLOMERULAR FILTRATION RATE 23.7 (>32); GLUCOSE, FASTING 95 MG/DL (70-100); MB/CK RELATIVE INDEX 1.64 (< OR =4); NT-PRO BNP 3147 PG/ML (<450); POTASSIUM SERUM 5.3 MEQ/L (3.5-5.1); SODIUM LEVEL 142 MEQ/L (136-145); TOTAL PROTEIN 7.5 GM/DL (6.4-8.2); TROPONIN I < 0.02 NG/ML (< 0.10)
[2019-06-02 11:32] VITALS: BP 160/88
[2019-06-02] MEDS ORDERED: FUROSEMIDE 20 MG TAB PO ONE (12:00)
--- NOTE | 2019-06-02 18:49 | ECGEPIP ---
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
== END 2019-06-02 12:15 | disposition home or self-care (01) ==
LOC: M ED 08:50
DX: I50.9 Heart failure, unspecified (principal); I13.0 Hypertensive heart and chronic kidney disease with heart failure and stage 1 through stage 4 chronic kidney disease, or unspecified chronic kidney disease; M47.814 Spondylosis without myelopathy or radiculopathy, thoracic region; E87.5 Hyperkalemia; N17.9 Acute kidney failure, unspecified; I48.20 Chronic atrial fibrillation, unspecified; K21.9 Gastro-esophageal reflux disease without esophagitis; E03.9 Hypothyroidism, unspecified; F03.90 Unspecified dementia, unspecified severity, without behavioral disturbance, psychotic disturbance, mood disturbance, and anxiety; E55.9 Vitamin D deficiency, unspecified; N18.4 Chronic kidney disease, stage 4 (severe); K59.00 Constipation, unspecified; D50.9 Iron deficiency anemia, unspecified; R32 Unspecified urinary incontinence; Z86.73 Personal history of transient ischemic attack (TIA), and cerebral infarction without residual deficits; Z88.0 Allergy status to penicillin; Z88.8 Allergy status to other drugs, medicaments and biological substances; Z88.1 Allergy status to other antibiotic agents; Z79.899 Other long term (current) drug therapy; Z79.01 Long term (current) use of anticoagulants

== ENCOUNTER → 2019-06-17 | Outpatient (REF) | payer MEDICARE, MEDICAID | LOC: M LAB REF 13:22 | PROVIDERS: ATTEND Internal Medicine Nephrology | DX: N39.0 Urinary tract infection, site not specified (principal) ==

== ENCOUNTER → 2019-08-06 | Outpatient (REF) | payer MEDICARE, MEDICAID ==
[~2019-08-06] MED LIST changes: -MECL-68 PO; +MECL1TAB31 PO
== END ==
LOC: M LAB REF 13:44
PROVIDERS: ATTEND Internal Medicine Nephrology
DX: N39.0 Urinary tract infection, site not specified (principal)

== ENCOUNTER 2019-12-30 09:52 | Emergency (ER) | payer MEDICARE, MEDICAID ==
[~2019-12-30] VITALS: Ht 157.5 cm; Wt 90.1 kg
[~2019-12-30 09:52] MED LIST changes: -COUM7.5T PO; +COUM7.5T6 PO
[2019-12-30] MEDS ORDERED: DEXI30CA2 (10:03)
[2019-12-30] MEDS ORDERED: FURO20TA2 (10:03)
[2019-12-30] MEDS ORDERED: AMLO2.5T3 (10:03)
[2019-12-30 11:09] LABS: BASO % 0.5 % (0.0-1.0); EOS # 0.1 10^3/uL (0.0-0.5); EOS % 1.3 % (0.0-3.0); HEMATOCRIT 38.2 % (36.0-47.0); HEMOGLOBIN 11.9 g/dl (12.0-15.5); LYMPH # 0.8 10^3/uL (1.5-5.0); LYMPH % 9.6 % (24.0-44.0); MEAN CORPUSCULAR HEMOGLOBIN 29.8 pg (27.0-33.0); MEAN CORPUSCULAR HGB CONC 31.2 g/dl (32.0-36.5); MEAN CORPUSCULAR VOLUME 95.7 fl (80.0-96.0); MONO # 0.6 10^3/uL (0.0-0.8); MONO % 7.4 % (0.0-5.0); NEUTROPHILS # 6.4 10^3/uL (1.5-8.5); NEUTROPHILS % 80.7 % (36.0-66.0); PLATELET COUNT, AUTOMATED 161 10^3/uL (150-450); RED BLOOD COUNT 3.99 10^6/uL (4.00-5.40); WHITE BLOOD COUNT 7.9 10^3/uL (4.0-10.0)
[2019-12-30 11:38] LABS: ALBUMIN 3.4 GM/DL (3.2-5.2); ALT/SGPT 22 U/L (12-78); BILIRUBIN,DIRECT < 0.1 MG/DL (0.0-0.2); BILIRUBIN,TOTAL 0.2 MG/DL (0.2-1.0); LIPASE 110 U/L (73-393); TOTAL PROTEIN 7.4 GM/DL (6.4-8.2)
[2019-12-30] MEDS ORDERED: ONDANSETRON 4MG/2ML VIAL IV ONE (12:00)
[2019-12-30] MEDS ORDERED: MORPHINE 2 MG/ML 1ML VIAL (J2270) IV ONE (12:00)
--- NOTE | 2019-12-30 12:27 | REP ---
CT ABDOMEN AND PELVIS WITHOUT IV OR ORAL CONTRAST: Renal stone protocol. HISTORY: Hematuria. Rule out stone. Comparison CT study of the abdomen pelvis is from May 12, 2015. 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 Axial images demonstrate that the lung bases are clear. Mild cardiomegaly is observed. There are surgical clips in the gastroesophageal junction. The liver and the spleen are normal in size homogeneous in texture. No adrenal abnormality is observed. No abnormality is noted in the pancreas. There is an intrarenal calculus in the upper pole of the right kidney 3 mm in diameter. No intrarenal calculus is noted on the left but there is moderate left-sided hydronephrosis. There is left-sided hydroureter to the level of the mid ureter where there is a 3 mm mid ureteral calculus noted on the left. No other ureteral calculus is observed. No bladder calculus is seen. The uterus is surgically absent. A normal appendix is apparent in the right lower quadrant adjacent to the cecum. IMPRESSION: Moderate left-sided hydronephrosis and proximal hydroureter due to a 3 mm obstructing calculus in the mid ureter at the level of the L5 vertebral body. There is an intrarenal calculus in the upper pole right kidney. No right-sided hydronephrosis. Electronically Signed by Santhosh Martinez MD 12/30/2019 01:38 P
[2019-12-30] MEDS ORDERED: MORPHINE 4 MG/ML 1ML VIAL/SYRINGE (J2270) IV ONE (13:00)
[2019-12-30 15:00] VITALS: BP 166/97
[2019-12-30] MEDS ORDERED: NORC1TAB7 PO (15:21)
[2019-12-30] MEDS ORDERED: ONDA4TAB6 PO (15:21)
== END 2019-12-30 15:52 | disposition home or self-care (01) ==
LOC: M ED 09:52
DX: N20.1 Calculus of ureter (principal); K44.9 Diaphragmatic hernia without obstruction or gangrene; I48.91 Unspecified atrial fibrillation; F03.90 Unspecified dementia, unspecified severity, without behavioral disturbance, psychotic disturbance, mood disturbance, and anxiety; N18.9 Chronic kidney disease, unspecified; D64.9 Anemia, unspecified; Z79.899 Other long term (current) drug therapy; Z79.01 Long term (current) use of anticoagulants
CPT/HCPCS: 36415; 74176; 80047; 80076; 81001; 83690; 85025; 96374; 96375; 96376; 99284; J2270; J2405

== ENCOUNTER → 2020-01-05 | Outpatient (REF) | payer MEDICARE, MEDICAID ==
[~2020-01-05] MED LIST changes: +AMLO2.5T3; +DEXI30CA2; +FURO20TA2; +NORC1TAB7 PO; +ONDA4TAB6 PO
[2020-01-05 15:40] LABS: APPEARANCE, URINE HAZY (CLEAR); BACTERIA, URINE AUTO NEGATIVE (NEGATIVE); BILIRUBIN, URINE AUTO NEGATIVE (NEGATIVE); BLOOD, URINE BLOOD NEGATIVE (NEGATIVE); CALCIUM OXALATE CRYSTALS LARGE; COLOR, URINE YELLOW (YELLOW); GLUCOSE, URINE (UA) AUTO NEGATIVE (NEGATIVE); KETONE, URINE AUTO NEGATIVE (NEGATIVE); LEUKOCYTE ESTERASE, URINE AUTO NEGATIVE (NEGATIVE); NITRITE, URINE AUTO NEGATIVE (NEGATIVE); PROTEIN, URINE AUTO NEGATIVE (NEGATIVE); RBC, URINE AUTO 0 /HPF (0-3); SPECIFIC GRAVITY URINE AUTO 1.013 (1.002-1.035); SQUAMOUS EPITHELIAL CELL UR AU 0 /HPF (0-6); UROBILINOGEN, URINE AUTO 0.2 mg/dL (0.0-2.0); WBC, URINE AUTO 0 /HPF (0-3)
== END ==
LOC: M SMT 14:58
PROVIDERS: ATTEND Nurse Practitioner Women's Health
DX: N13.2 Hydronephrosis with renal and ureteral calculous obstruction (principal)
CPT/HCPCS: 81001; 87086; G0463

== ENCOUNTER 2020-06-12 11:41 | Emergency (ER) | payer MEDICARE, MEDICAID ==
[~2020-06-12] VITALS: Ht 157.5 cm; Wt 81.8 kg
[~2020-06-12 11:41] MED LIST changes: -ACET-897 PO; -ELIQ2.5T; -MAGN100T PO
[2020-06-12] MEDS ORDERED: NS 1,000 ML IV ONE (12:15)
[2020-06-12 13:08] LABS: BASO % 0.2 % (0.0-1.0); HEMATOCRIT 42.2 % (36.0-47.0); HEMOGLOBIN 13.5 g/dl (12.0-15.5); LYMPH # 0.4 10^3/uL (1.5-5.0); LYMPH % 9.2 % (24.0-44.0); MEAN CORPUSCULAR HEMOGLOBIN 30.1 pg (27.0-33.0); MONO # 0.3 10^3/uL (0.0-0.8); MONO % 6.3 % (0.0-5.0); NEUTROPHILS # 3.5 10^3/uL (1.5-8.5); NEUTROPHILS % 84.1 % (36.0-66.0); PLATELET COUNT, AUTOMATED 115 10^3/uL (150-450); RED BLOOD COUNT 4.49 10^6/uL (4.00-5.40); WHITE BLOOD COUNT 4.2 10^3/uL (4.0-10.0)
[2020-06-12 13:17] LABS: INR 1.43; PROTHROMBIN TIME 17.8 SECONDS (12.5-14.3)
[2020-06-12 13:36] LABS: ALBUMIN 3.3 GM/DL (3.2-5.2); BILIRUBIN,DIRECT 0.2 MG/DL (0.0-0.2); BILIRUBIN,TOTAL 0.6 MG/DL (0.2-1.0); TOTAL PROTEIN 7.5 GM/DL (6.4-8.2)
[2020-06-12 13:56] LABS: CALCIUM LEVEL 8.3 MG/DL (8.8-10.2); CREATININE FOR GFR 2.08 MG/DL (0.55-1.30); GLOMERULAR FILTRATION RATE 24.3 (>32); POTASSIUM SERUM 4.6 MEQ/L (3.5-5.1)
[2020-06-12 16:39] VITALS: BP 138/65
[2020-06-13] MEDS ORDERED: ELIQ2.5T (17:38)
[2020-06-13] MEDS ORDERED: MAGN100T PO (17:38)
[2020-06-13] MEDS ORDERED: ACET-897 PO (21:10)
== END 2020-06-12 16:50 | disposition home or self-care (01) ==
LOC: M ED 11:41
DX: R19.7 Diarrhea, unspecified (principal); N18.4 Chronic kidney disease, stage 4 (severe); I48.91 Unspecified atrial fibrillation; Z88.0 Allergy status to penicillin; Z88.8 Allergy status to other drugs, medicaments and biological substances; Z86.19 Personal history of other infectious and parasitic diseases; Z79.899 Other long term (current) drug therapy; Z79.01 Long term (current) use of anticoagulants; Z98.890 Other specified postprocedural states

== ENCOUNTER → 2020-06-12 | Outpatient (REF) | payer MEDICARE, MEDICAID ==
[~2020-06-12] MED LIST changes: +ACET-897 PO; +ELIQ2.5T; +MAGN100T PO
== END ==
LOC: M LAB REF 18:53
PROVIDERS: ATTEND Physician Assistant Medical
DX: R19.7 Diarrhea, unspecified (principal)

== ENCOUNTER 2020-06-13 14:51 | Inpatient (IN) | payer MEDICARE, MEDICAID ==
[~2020-06-13] VITALS: Ht 157.5 cm; Wt 96.5 kg
[2020-06-13 15:25] LABS: BASO % 0.3 % (0.0-1.0); HEMATOCRIT 41.2 % (36.0-47.0); LYMPH # 0.4 10^3/uL (1.5-5.0); MEAN CORPUSCULAR HEMOGLOBIN 29.3 pg (27.0-33.0); MEAN CORPUSCULAR HGB CONC 31.6 g/dl (32.0-36.5); MONO # 0.2 10^3/uL (0.0-0.8); NEUTROPHILS # 3.3 10^3/uL (1.5-8.5); NEUTROPHILS % 82.2 % (36.0-66.0); PLATELET COUNT, AUTOMATED 128 10^3/uL (150-450); RED BLOOD COUNT 4.43 10^6/uL (4.00-5.40)
[2020-06-13 15:44] LABS: INR 1.49; PROTHROMBIN TIME 18.3 SECONDS (12.5-14.3)
[2020-06-13 15:45] LABS: PARTIAL THROMBOPLASTIN TIME 33.7 SECONDS (24.2-38.5)
[2020-06-13 15:55] LABS: BILIRUBIN,TOTAL 0.7 MG/DL (0.2-1.0); CALCIUM LEVEL 8.4 MG/DL (8.8-10.2); CREATININE FOR GFR 2.12 MG/DL (0.55-1.30); GLOMERULAR FILTRATION RATE 23.8 (>32); POTASSIUM SERUM 4.3 MEQ/L (3.5-5.1); TOTAL PROTEIN 7.2 GM/DL (6.4-8.2)
--- NOTE | 2020-06-13 15:55 | REP ---
INDICATION: seizure. COMPARISON: Comparison head CT study February 21, 2019.. TECHNIQUE: Helical scanning is acquired. 5 mm axial images were reformatted. Coronal MPR images were generated. FINDINGS: Bone window settings demonstrate an intact bony calvarium. There is no evidence of skull fracture or incidental bony calvarial lesion. The visualized paranasal sinuses appear clear. No intraorbital abnormality is seen. On soft tissue window setting images; the lateral, third, and fourth ventricles are normal in size and position. Sainz-white differentiation pattern is normal above and below the tentorium. There are is no evidence of intracranial hemorrhage. No mass, edema, infarction, or midline shift is seen. No extra-axial fluid collection is appreciated. There is fairly extensive vascular calcification in the distal internal carotid arteries. There is mild generalized volume loss. IMPRESSION: No acute intracranial abnormality. Vascular calcification and mild volume loss again noted.. <Electronically signed by Aristeo Martinez > 06/13/20 1631
--- NOTE | 2020-06-13 15:56 | REP ---
INDICATION: seizure. COMPARISON: Comparison chest x-ray June 02, 2019.. TECHNIQUE: Sitting AP portable radiograph. FINDINGS: Monitoring electrodes are seen. Cardiomegaly is observed. Vascular calcification is seen. There are clips in the gastroesophageal junction region. There is linear platelike atelectasis at the right base. Mild interstitial fibrosis pattern is seen in the bases bilaterally. Lung silver are otherwise clear. Pulmonary vasculature is not increased. No acute bony abnormality is appreciated. IMPRESSION: There is linear discoid atelectasis in the right base versus subtle infiltrate. Mild diffuse interstitial fibrosis pattern. Otherwise no active disease. Prominent heart. <Electronically signed by Aristeo Martinez > 06/13/20 1023
--- NOTE | 2020-06-13 17:11 | ECGEPIP ---
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
[2020-06-13] MEDS ORDERED: MAGN100T PO (17:38)
[2020-06-13] MEDS ORDERED: ELIQ2.5T (17:38)
[2020-06-13] MEDS ORDERED: ASPIRIN 81 MG CHEW TABLET PO ONE (20:30)
--- NOTE | 2020-06-13 20:39 | HPEPDOC ---
[facility] Medical History & Physical Date of Admission Jun 13, 2020 Date of Service: Jun 13, 2020 History and Physical History and Physical Template v4.0 Chief complaint: Presented to the hospital with left-sided weakness History of present illness: Patient is 79-year-old female with a PMHx of HTN, A. fib (s/p Cardioversion x3, on Coumadin), Hypothyroidism, CKD3, Iron deficiency anemia, Hx of C. diff, Hx of Early Alzheimers , who presented to the emergency room with complaints of left-sided weakness. Patient was in the emergency room on 06/12 for persistent diarrhea and was sent home after she had stable vital signs and lab work. Patient presented again to the emergency room after her daughter who was visiting her had noticed left- sided weakness. Patient denies any specific left-sided weakness. Patient reports that she felt generalized weakness. Upon arrival to emergency room, patient did not have any weakness. No tPA was administered because she had full resolution of her symptoms upon arrival to ER. Currently, she denies any chest pain, shortness of breath, cough, palpitations, nausea, vomiting, abdominal pain, and her last bowel movement was 2 days prior. Patient denies any urinary discomfort. Currently patient reports that her appetite is doing well. Patient was incidentally found to have tested positive for COVID while in the ER . Patient reports that she has been exposed to a hairdresser that was positive. Patient takes Coumadin regularly and was in discussion with her primary care provider about transitioning to help this. She has not begun this transition. Past Medical History: HTN, A. fib (s/p Cardioversion x3, on Coumadin), Hypothyroidism, CKD3, Iron deficiency anemia, Hx of C. diff, Hx of Early Alzheimers Past Surgical History: Cholecystectomy Hysterectomy Remote gastric ulcer operation Appendectomy Allergies: See below Medications: See below Family History: - Mother with a history of heart disease - No history of malignancies Social History: - Denies the use of alcohol, tobacco or illicit drugs - Denies recent travel; reports she was exposed to a hairdresser that was COVID19 positive - Lives alone Review of Systems: 10 point review of systems complete, all negative otherwise stated in HPI Physical exam: - Vitals: BP [132/77], HR [63], RR [18], Sat [96%NC2L], Temp [97.8F] - General: Sitting up in bed, No acute distress, Speaking in full sentences, AAOx3 - HEENT: NC, AT, PERRLA - CVS: RRR, +S1S2, - Murmurs / rubs / gallops - Lungs: Fair air entry bilaterally, No appreciable wheezing / rales / rhonchi - Abdomen: Soft, Non-distended, Non-tender - Extremities: No lower extremity edema, No calf tenderness - Neuro: No focal motor or sensory deficit - Skin: No visible rashes Labs: See below Imaging: See below EKG: See below Assessment and Plan: Reported left sided weakness - possibly 2/2 TIA, possibly 2/2 CVA - Patient presented to the emergency room with reported left-sided weakness as per her daughter - Physical does not reveal any focal deficits - Patient is fully oriented to person, place and time - INR noted to be subtherapeutic - CT head 06/13: No acute intracranial abnormality. Vascular calcification and mild volume loss again noted. - Will get MRI/MRA brain duplex ultrasound carotid echocardiogram and continue with telemetry monitoring - Will check cardiac risk profile and neurological checks every 4 hours - ER provider discussed with Neurology; will c/w Coumadin for now - Will give single dose of ASA / Atorvastatin now - Consider Neuro consult in AM COVID positive - Currently patient is asymptomatic - Denies any chest pain, shortness breath, palpitations or cough - Hemodynamically stable and afebrile - CXR 06/13: There is linear discoid atelectasis in the right base versus subtle infiltrate. Mild diffuse interstitial fibrosis pattern. Otherwise no active disease. Prominent heart. - Will start incentive spirometry / acapella - Continue with supportive care and contact/droplet precautions HTN - Allow for permissive HTN, until MRI results / Stroke ruled out - BP currently well controlled - c/w telemetry monitoring - Will hold Amlodipine - Will c/w Metoprolol with hold parameters A. fib - s/p Cardioversion x3 - Currently patient is rate controlled - INR sub-therapeutic - Will c/w Metoprolol with hold parameters - c/w full anticoagulation with Coumadin Thrombocytopenia - No evidence of bleeding Hypothyroidism - c/w Levothyroxine Hyponatremia (mild) - Possibly 2/2 volume loss 2/2 recent diarrhea - Will check osmolality / urine electrolytes / TSH / Cortisol - Repeat BMP at midnight - Will provide gentle IV fluid hydration CKD3 - Creatinine appears to be at baseline Iron deficiency anemia - Hg at baseline Hx of C. Diff Hx of Early Alzheimers DVT prophylaxis - Will c/w full anticoagulation with Coumadin Vital Signs Vital Signs Date Time Temp Pulse Resp B/P (MAP) Pulse Ox O2 Delivery O2 Flow Rate FiO2 06/13/20 18:45 63 18 132/77 (95) 96 Nasal Cannula 2.0 06/13/20 15:05 97.8 Laboratory Data Labs 24H Laboratory Tests 2 06/13/20 15:12: Immature Granulocyte % (Auto) 0.5, Neutrophils (%) (Auto) 82.2H, Lymphocytes (%) (Auto) 11.0L, Monocytes (%) (Auto) 6.0H, Eosinophils (%) (Auto) 0.0, Basophils (%) (Auto) 0.3, Neutrophils # (Auto) 3.3, Lymphocytes # (Auto) 0.4L, Monocytes # (Auto) 0.2, Eosinophils # (Auto) 0.0, Basophils # (Auto) 0.0, Nucleated Red Blood Cells % (auto) 0.0, Prothrombin Time 18.3H, Prothromb Time International Ratio 1.49, Activated Partial Thromboplast Time 33.7, Anion Gap 7L, Glomerular Filtration Rate 23.8L, Calcium Level 8.4L, Total Bilirubin 0.7, Aspartate Amino Transf (AST/SGOT) 48H, Alanine Aminotransferase (ALT/SGPT) 22, Alkaline Phosphatase 72, Total Protein 7.2, Albumin 3.0L, Albumin/Globulin Ratio 0.7L 06/13/20 18:23: Urine Color YELLOW, Urine Appearance HAZY, Urine pH 5.0, Urine Specific [place] 1.012, Urine Protein 1+H, Urine Glucose (UA) NEGATIVE, Urine Ketones NEGATIVE, Urine Blood 2+H, Urine Nitrite NEGATIVE, Urine Bilirubin NEGATIVE, Urine Urobilinogen 0.2, Urine Leukocyte Esterase 1+H, Urine WBC (Auto) 46H, Urine RBC (Auto) 4H, Urine Hyaline Casts (Auto) 0, Urine Bacteria (Auto) 1+H, Urine Squamous Epithelial Cells 0, Urine Sperm (Auto) CBC/BMP Laboratory Tests 06/13/20 15:12 Microbiology Microbiology 06/13/20 Urine Culture, Received Pending 06/13/20 Respiratory Virus Panel (PCR) ([facility]) - Final, Complete SARS-CoV-2 (COVID 19) Home Medications Scheduled Bifidobacterium Infantis (Align) 4 Mg Cap, 4 MG PO DAILY Calcitriol (Calcitriol) 0.25 Mcg Capsule, 0.25 MCG PO DAILY Cholecalciferol (Vitamin D3) (Vitamin D3) 2,000 Unit Tab, 2,000 UNIT PO DAILY Docusate Sodium (Docusate Sodium) 100 Mg Capsule, 100 MG PO BID Levothyroxine Sodium (Levothyroxine Sodium) 88 Mcg Tab, 88 MCG PO DAILY Memantine HCl (Namenda Xr) 28 Mg Cap.spr.24, 28 MG PO DAILY Metoprolol Tartrate (Metoprolol Tartrate) 25 Mg Tablet, 12.5 MG PO BID Nortriptyline HCl (Nortriptyline HCl) 10 Mg Capsule, 10 MG PO QHS Warfarin Sodium (Warfarin Sodium) 5 Mg Tablet, 7.5 MG PO 3XW FRIDAY, FRIDAY AND FRIDAY Warfarin Sodium (Warfarin Sodium) 5 Mg Tablet, 10 MG PO 4XWK FRIDAY, FRIDAY, FRIDAY AND FRIDAY Miscellaneous Medications Amlodipine Besylate (Amlodipine Besylate) 2.5 Mg Tablet Apixaban (Eliquis) 2.5 Mg Tablet Dexlansoprazole (Dexilant) 30 Mg Cap.bp Furosemide (Furosemide) 20 Mg Tablet t,r, sat Magnesium Citrate (Magnesium Citrate) 100 Mg Tablet, 100 MG PO Allergies Coded Allergies: Penicillins (Verified Allergy, Intermediate, hives, 06/12/20) hydrochlorothiazide (Verified Allergy, Unknown, 06/12/20) hypotension rivastigmine (Verified Allergy, Unknown, 06/12/20) hives clindamycin (Verified Adverse Reaction, Unknown, abdominal pain, 06/12/20) rivaroxaban (Verified Adverse Reaction, Unknown, 06/12/20) gi upset triamterene (Verified Adverse Reaction, Unknown, "couldn't hold my head up", 06/12/20) CARLINE VELASQUEZ MD Jun 13, 2020 20:39
[2020-06-13] MEDS ORDERED: ACETAMINOPHEN TAB 650MG DOSE (2X325MG) PO PRN (21:00)
[2020-06-13 21:10] LABS: CORTISOL PM 39.5 UG/DL (3.1-16.7); THYROID STIMULATING HORMONE 0.734 uIU/ML (0.358-3.740)
[2020-06-13] MEDS ORDERED: ACET-897 PO (21:10)
[2020-06-13 22:00] VITALS: BP 88/62
[2020-06-13 22:10] VITALS: O2SAT 83
--- NOTE | 2020-06-13 22:11 | REPVR ---
PROCEDURE INFORMATION: Exam: MR Head Without Contrast Exam date and time: 06/13/2020 8:19 PM Age: 79 years old Clinical indication: Weakness, extremity; Left; Additional info: L sided weakness TECHNIQUE: Imaging protocol: MR of the head without contrast. COMPARISON: CT Head without contrast 06/13/2020 3:36 PM FINDINGS: Brain: There is mild cerebral atrophy. Changes of chronic white matter microvascular disease are present. No signs of a recent infarction or hemorrhage. Cerebral ventricles: Normal. No ventriculomegaly. Bones/joints: Unremarkable. Paranasal sinuses: Complete opacification of the left maxillary sinus. Mastoid air cells: Normal as visualized. No mastoid effusion. Orbits: Unremarkable. Soft tissues: Unremarkable. IMPRESSION: 1. Atrophy and chronic white matter changes. No acute intracranial abnormality. 2. Chronic left sinusitis. Electronically signed by: Julio César Irizarry On 06/13/2020 22:11:21 PM
--- NOTE | 2020-06-13 22:16 | REPVR ---
PROCEDURE INFORMATION: Exam: MR Angiogram Head Without Contrast, Arteries Exam date and time: 06/13/2020 8:19 PM Age: 79 years old Clinical indication: Weakness; Additional info: L sided weakness TECHNIQUE: Imaging protocol: MR angiogram head without contrast. Exam focused on the arteries. COMPARISON: CT Head without contrast 06/13/2020 3:36 PM FINDINGS: ANTERIOR CIRCULATION: Right internal carotid artery: Intracranial segment is patent with no significant stenosis. No aneurysm. Right middle cerebral artery: No occlusion or significant stenosis. No aneurysm. Right anterior cerebral artery: No occlusion or significant stenosis. No aneurysm. Left internal carotid artery: Intracranial segment is patent with no significant stenosis. No aneurysm. Left middle cerebral artery: No occlusion or significant stenosis. No aneurysm. Left anterior cerebral artery: No occlusion or significant stenosis. No aneurysm. POSTERIOR CIRCULATION: Right vertebral artery: No occlusion or significant stenosis. No aneurysm. Left vertebral artery: No occlusion or significant stenosis. No aneurysm. Basilar artery: No occlusion or significant stenosis. No aneurysm. Right posterior cerebral artery: No occlusion or significant stenosis. No aneurysm. Left posterior cerebral artery: origin of the left [employer] without significant stenosis or occlusion. IMPRESSION: Normal MRA. No significant stenosis, aneurysm, or vascular occlusion. Electronically signed by: Julio César Irizarry On 06/13/2020 22:16:16 PM
[2020-06-13 23:00] VITALS: O2SAT 96
[2020-06-13 23:02] VITALS: BP 110/62
[2020-06-13 23:06] VITALS: BP 110/62; O2SAT 96
[2020-06-13] MEDS: PRAVASTATIN 20 MG TAB PO SCH (23:16)
[2020-06-13] MEDS: NS 1,000 ML IV SCH (23:16)
[2020-06-13] MEDS: WARFARIN SOD 5MG TAB PO SCH (23:16)
[2020-06-13 23:54] LABS: CREATININE,RANDOM URINE 79.6 MG/DL
[2020-06-14] VITALS (18 sets, daily range): BP systolic 10–134; BP diastolic 55–72; O2SAT 89–96
[2020-06-14 00:26] LABS: C REACTIVE PROTEIN QUANTITATIV 6.91 MG/DL (0.00-0.30)
[2020-06-14 00:37] LABS: CALCIUM LEVEL 8.3 MG/DL (8.8-10.2); CREATININE FOR GFR 2.13 MG/DL (0.55-1.30); GLOMERULAR FILTRATION RATE 23.7 (>32); POTASSIUM SERUM 4.2 MEQ/L (3.5-5.1)
[2020-06-14] MEDS: NORTRIPTYLINE 10 MG CAP PO SCH ×2 (01:19→21:20)
--- NOTE | 2020-06-14 02:13 | REPVR ---
PROCEDURE INFORMATION: Exam: US Duplex Bilateral Extracranial Arteries Exam date and time: 06/14/2020 1:57 AM Age: 79 years old Clinical indication: Weakness, extremity; Left; Additional info: L sided weakness TECHNIQUE: Imaging protocol: Real-time Duplex ultrasound scan of the bilateral carotid and vertebral arteries combining arizmendi scale, color Doppler and spectral waveform analysis. Bilateral exam. COMPARISON: CT Head without contrast 06/13/2020 3:36 PM FINDINGS: Right common carotid artery: Unremarkable. No occlusion or stenosis. Waveforms are normal. Right internal carotid artery: Unremarkable. No occlusion or stenosis. Waveforms are normal. Right ICA/CCA ratio: Within normal limits. Right external carotid artery: No stenosis in the origin. Mild turbulent blood flow at the origin. Right vertebral artery: Unremarkable. Antegrade flow. Left common carotid artery: Unremarkable. No occlusion or stenosis. Waveforms are normal. Left internal carotid artery: Unremarkable. No occlusion or stenosis. Waveforms are normal. Left ICA/CCA ratio: Within normal limits. Left external carotid artery: No stenosis in the origin. Left vertebral artery: Unremarkable. Antegrade flow. IMPRESSION: No no significant stenosis or occlusion. REFERENCES: SRU CRITERIA. The degree of internal carotid artery stenosis is based on criteria defined by the Society of Radiologists in Ultrasound (SRU). Normal is no stenosis. Mild is less than 50% stenosis. Moderate is 50-69% stenosis. Severe is greater than 69% stenosis to near occlusion. Near occlusion is a markedly narrowed lumen. Total occlusion is no detectable patent lumen. Electronically signed by: Julio César Irizarry On 06/14/2020 02:13:35 AM
[2020-06-14] MEDS: LEVOTHYROXINE 88MCG TABLET (0.088 MG) PO SCH (05:26)
[2020-06-14 06:47] LABS: BASO % 0.2 % (0.0-1.0); HEMATOCRIT 37.7 % (36.0-47.0); HEMOGLOBIN 12.2 g/dl (12.0-15.5); LYMPH # 0.6 10^3/uL (1.5-5.0); LYMPH % 14.5 % (24.0-44.0); MEAN CORPUSCULAR HEMOGLOBIN 30.1 pg (27.0-33.0); MEAN CORPUSCULAR HGB CONC 32.4 g/dl (32.0-36.5); MEAN CORPUSCULAR VOLUME 93.1 fl (80.0-96.0); MONO # 0.3 10^3/uL (0.0-0.8); MONO % 6.3 % (0.0-5.0); NEUTROPHILS # 3.3 10^3/uL (1.5-8.5); NEUTROPHILS % 78.5 % (36.0-66.0); PLATELET COUNT, AUTOMATED 129 10^3/uL (150-450); RED BLOOD COUNT 4.05 10^6/uL (4.00-5.40); WHITE BLOOD COUNT 4.2 10^3/uL (4.0-10.0)
[2020-06-14 06:57] LABS: INR 1.73; PROTHROMBIN TIME 20.6 SECONDS (12.5-14.3)
[2020-06-14 07:20] LABS: ALBUMIN 2.8 GM/DL (3.2-5.2); ALT/SGPT 19 U/L (12-78); BILIRUBIN,DIRECT 0.2 MG/DL (0.0-0.2); BILIRUBIN,TOTAL 0.4 MG/DL (0.2-1.0); BLOOD UREA NITROGEN 50 MG/DL (7-18); CALCIUM LEVEL 7.8 MG/DL (8.8-10.2); CARBON DIOXIDE LEVEL 20 MEQ/L (21-32); CHLORIDE LEVEL 108 MEQ/L (98-107); CHOLESTEROL LEVEL 116 MG/DL (<200); CREATININE FOR GFR 2.02 MG/DL (0.55-1.30); FERRITIN 1329 NG/ML (8-252); GLOMERULAR FILTRATION RATE 25.2 (>32); GLUCOSE, FASTING 95 MG/DL (70-100); HDL CHOLESTEROL 58 MG/DL (>40); LDL CHOLESTEROL 39 MG/DL (<100); MAGNESIUM LEVEL 2.1 MG/DL (1.8-2.4); NON-HDL-C 58 MG/DL; POTASSIUM SERUM 4.1 MEQ/L (3.5-5.1); SODIUM LEVEL 138 MEQ/L (136-145); TOTAL PROTEIN 6.6 GM/DL (6.4-8.2); TRIGLYCERIDES LEVEL 95 MG/DL (<150)
[2020-06-14] MEDS: DOCUSATE SODIUM 100MG CAPSULE PO SCH ×2 (09:03→21:19)
[2020-06-14] MEDS: OMEPRAZOLE 20 MG CAP PO SCH (09:03)
[2020-06-14] MEDS: MEMANTINE 5MG TABLET (NAMENDA) PO SCH ×2 (09:03→21:19)
[2020-06-14] MEDS: VITAMIN D 1,000 INTERNATIONAL UNITS TABLET PO SCH (09:03)
[2020-06-14] MEDS: CALCITRIOL 0.25 MCG CAP (S0169) PO SCH (09:04)
[2020-06-14 10:06] LABS: HEPATITIS B SURFACE ANTIGEN NEGATIVE (NEGATIVE)
[2020-06-14] MEDS: NS 1,000 ML IV SCH (15:54)
[2020-06-14] MEDS: WARFARIN SOD 5MG TAB PO SCH (17:06)
--- NOTE | 2020-06-14 21:10 | IPNPDOC ---
Subjective Date Seen The patient was seen on 06/14/20. Subjective Chief Complaint/HPI Mrs. Luis is an 79 year old female with atrial fibrillation on warfarin who is here for weakness. She saw her COVID director of infection prevention about 2 weeks ago and had started to feel ill for about 12 days. She had malaise and weakness. On the day of admission, she tells me that she felt like she couldn't move or speak, but she remembered everything that happened. Today, she feels better than what she had felt the past 12 days. Denies chest pain or abdominal pain. Reports dyspnea. Requires 4L of oxygen here, but not on oxygen at home Objective Physical Examination General Exam: Positive: Cooperative Eye Exam: Positive: EOMI; Negative: Sclera icteric ENT Exam: Positive: Atraumatic Neck Exam: Positive: Supple Chest Exam: Positive: Diminished Heart Exam: Positive: Tachycardic, Regular Rhythm Abdomen Exam: Positive: Normal bowel sounds, Soft; Negative: Tenderness Extremity Exam: Negative: Edema Neuro Exam: Positive: Cranial Nerves 3-12 NL Psych Exam: Positive: Mental status NL, Mood NL Assessment /Plan Assessment Mrs. Luis is an 79 year old female who is COVID positive here for TIA. At home, she could not speak and had left sided weakness. Resolved when she arrived at the ED. She remembers everything that happened. MRI, MRA and US carotid has been negative. Pending echocardiogram with bubble study. Otherwise, she does not use oxygen at home and is requiring 4L here. She says her symptoms started 12 days prior. Will provide supportive care and work on weaning off oxygen. She may need home oxygen. Plan/VTE VTE Prophylaxis Ordered?: Yes Plan 1. TIA -Aphasia and left sided weakness -Resolved -MRI, MRA, and US carotids negative. Pending echo with bubble study 2. COVID positive -Symptoms started about 12 days prior to admission -Requiring 4L of oxygen when not on oxygen at home -Supportive care 3. Hypertension -Blood pressure controlled off of blood pressure medications -Continue to monitor 4. Atrial fibrillation -Rate controlled -Continue with metoprolol and warfarin 5. Hypothyroidism -Continue with levothyroxine 6. Hyponatremia -Resolved 7. DVT ppx -Continue with warfarin, monitor INR VS, I&O, 24H, Fishbone Vital Signs/I&O Vital Signs Date Time Temp Pulse Resp B/P (MAP) Pulse Ox O2 Delivery O2 Flow Rate FiO2 06/14/20 16:00 4.0 06/14/20 15:00 95 Nasal Cannula 06/14/20 12:00 97.2 109 19 134/68 (90) I&O- Last 24 Hours up to 6 AM 06/14/20 06:00 Intake Total 736 ml Output Total 370 ml Balance 366 ml Laboratory Data 24H LABS Laboratory Tests 2 06/14/20 00:00: Anion Gap 10, Glomerular Filtration Rate 23.7L, Calcium Level 8.3L 06/14/20 00:06: Lactic Acid Level 1.3 06/14/20 06:30: Anion Gap 10, Glomerular Filtration Rate 25.2L, Calcium Level 7.8L, Magnesium Level 2.1, Ferritin 1329H, Total Bilirubin 0.4, Direct Bilirubin 0.2, Aspartate Amino Transf (AST/SGOT) 42H, Alanine Aminotransferase (ALT/SGPT) 19, Alkaline Phosphatase 66, C-Reactive Protein, Quantitative 7.00H, Total Protein 6.6, Albumin 2.8L, Albumin/Globulin Ratio 0.7L, Triglycerides Level 95, Total Cholesterol 116, LDL Cholesterol 39, Non-HDL Cholesterol (LDL + VLDL) 58, Total HDL Cholesterol 58, Cholesterol/HDL Ratio 2.000, Procalcitonin 0.33, Hepatitis B Surface Antigen NEGATIVE 06/14/20 06:31: Immature Granulocyte % (Auto) 0.5, Neutrophils (%) (Auto) 78.5H, Lymphocytes (%) (Auto) 14.5L, Monocytes (%) (Auto) 6.3H, Eosinophils (%) (Auto) 0.0, Basophils (%) (Auto) 0.2, Neutrophils # (Auto) 3.3, Lymphocytes # (Auto) 0.6L, Monocytes # (Auto) 0.3, Eosinophils # (Auto) 0.0, Basophils # (Auto) 0.0, Nucleated Red Blood Cells % (auto) 0.0, Prothrombin Time 20.6H, Prothromb Time International Ratio 1.73 CBC/BMP Laboratory Tests 06/14/20 00:00 06/14/20 06:30 06/14/20 06:31 Microbiology Microbiology 06/14/20 Blood Culture, Received Pending 06/14/20 Blood Culture, Received Pending 12/1/20 Urine Culture, Received Pending 06/13/20 Respiratory Virus Panel (PCR) ([facility]) - Final, Complete SARS-CoV-2 (COVID 19) DAVID GALLEGO DO Jun 14, 2020 21:10
[2020-06-14] MEDS: PRAVASTATIN 20 MG TAB PO SCH (21:20)
[2020-06-15 04:00] VITALS: BP 141/61
[2020-06-15 05:00] VITALS: BP 141/61
[2020-06-15] MEDS: LEVOTHYROXINE 88MCG TABLET (0.088 MG) PO SCH (05:25)
[2020-06-15] MEDS: NS 1,000 ML IV SCH (05:26)
[2020-06-15 07:02] LABS: BASO % 0.2 % (0.0-1.0); EOS % 0.2 % (0.0-3.0); HEMATOCRIT 38.9 % (36.0-47.0); HEMOGLOBIN 12.4 g/dl (12.0-15.5); LYMPH # 0.7 10^3/uL (1.5-5.0); LYMPH % 14.8 % (24.0-44.0); MEAN CORPUSCULAR HEMOGLOBIN 29.9 pg (27.0-33.0); MEAN CORPUSCULAR HGB CONC 31.9 g/dl (32.0-36.5); MEAN CORPUSCULAR VOLUME 93.7 fl (80.0-96.0); MONO # 0.3 10^3/uL (0.0-0.8); MONO % 5.7 % (0.0-5.0); NEUTROPHILS # 3.6 10^3/uL (1.5-8.5); NEUTROPHILS % 78.4 % (36.0-66.0); PLATELET COUNT, AUTOMATED 149 10^3/uL (150-450); RED BLOOD COUNT 4.15 10^6/uL (4.00-5.40); WHITE BLOOD COUNT 4.6 10^3/uL (4.0-10.0)
[2020-06-15 07:12] LABS: INR 1.98; PROTHROMBIN TIME 22.9 SECONDS (12.5-14.3)
[2020-06-15 07:31] LABS: ALBUMIN 2.7 GM/DL (3.2-5.2); BILIRUBIN,DIRECT 0.2 MG/DL (0.0-0.2); BILIRUBIN,TOTAL 0.3 MG/DL (0.2-1.0); CALCIUM LEVEL 7.9 MG/DL (8.8-10.2); CREATININE FOR GFR 1.77 MG/DL (0.55-1.30); GLOMERULAR FILTRATION RATE 29.3 (>32); POTASSIUM SERUM 3.9 MEQ/L (3.5-5.1); TOTAL PROTEIN 6.6 GM/DL (6.4-8.2)
[2020-06-15] MEDS: CALCITRIOL 0.25 MCG CAP (S0169) PO SCH (08:13)
[2020-06-15] MEDS: DOCUSATE SODIUM 100MG CAPSULE PO SCH ×2 (08:13→20:05)
[2020-06-15] MEDS: OMEPRAZOLE 20 MG CAP PO SCH (08:13)
[2020-06-15] MEDS: VITAMIN D 1,000 INTERNATIONAL UNITS TABLET PO SCH (08:13)
[2020-06-15] MEDS: MEMANTINE 5MG TABLET (NAMENDA) PO SCH ×2 (08:14→20:00)
[2020-06-15] MEDS: levETIRAcetam 250MG TABLET (KEPPRA) PO SCH ×2 (14:57→20:05)
[2020-06-15 15:00] VITALS: BP 144/70
--- NOTE | 2020-06-15 15:10 | ECHO ---
DATE OF PROCEDURE: 06/13/2020 Age: 79 Gender: Female Height: 62 inches Weight: 190 pounds Body surface area: 1.87 m2 PATIENT LOCATION: Inpatient. REFERRING PHYSICIAN: Matt De La Garza M.D. INDICATION: Transient ischemic attack (TIA). Chronic atrial fibrillation. MEASUREMENTS: 2D Measurements: RV 3.8 cm LV 5.2 cm Septum 1.1 cm Posterior wall 1.1 cm Aortic Root 3.2 cm LA 4.5 cm LVEF 65% Doppler Measurements: AV 1.28 m/s LVOT 0.81 m/s MV-E 127 Early mitral deceleration time 232 msec E prime medial 7.7, E prime lateral 9.8 Average E/E prime ratio 14.5/PCWP - 20 mmHg PV 0.86 m/s Pulmonary artery acceleration time 92 msec RVSP 42 mmHg IVC 2.2 cm COMMENTS: Underlying atrial fibrillation with somewhat slow ventricular response. No intraventricular conduction disturbance. M-mode and two-dimensional echocardiography was performed with pulse, continuous wave, color flow, and tissue Doppler studies. Normal left ventricular size, wall thickness, and wall motion. Moderately dilated left atrium with current Doppler evidence of an elevated estimated mean left atrial pressure. Normal right ventricular size and wall motion with Doppler evidence of moderate pulmonary hypertension. Moderately dilated right atrium and mildly dilated inferior vena cava (IVC) with adequate respiratory collapse against an elevated central venous pressure at this time. Normal aortic dimensions. Mild aortic valvular sclerosis without stenosis and very mild insufficiency. Moderate degenerative changes of the mitral valve apparatus with adequate leaflet excursion and no posterior systolic buckling, but moderately severe mitral insufficiency. Normal appearing tricuspid valve with moderate insufficiency. No apparent intracardiac mass or pericardial effusion. As discussed with Dr. De La Garza 06/13/2020, in a patient with permanent atrial fibrillation and subtherapeutic oral anticoagulation, the source of suspected TIA iwould be undoubtedly cardiac. A stewart management would be optimal oral anticoagulation. MTDD
[2020-06-15] MEDS: WARFARIN SOD 5MG TAB PO SCH (17:53)
--- NOTE | 2020-06-15 18:22 | IPNPDOC ---
Subjective Date Seen The patient was seen on 06/15/20. Subjective Chief Complaint/HPI Mrs. Luis is an 79 year old female with atrial fibrillation on warfarin who is here for TIA and seizure like symptoms. Spoke with daughter (who is an EMT) who witnessed her event. Says she had a seizure. Not tonic/clonic, but she stared into space. Then had an episode of aphasia and left sided weakness. Ordered EEG, but due to COVID status, we're not able to do EEG. Spoke with Neurology (Dr. Lyles). Recommended discussing with family about empirically started Keppra. Spoke with daughter who is agreeable to starting Keppra. Otherwise, patient denies fever, chest pain, abdominal pain, or dysuria. Still has dyspnea on exertion. Objective Physical Examination General Exam: Positive: Cooperative Eye Exam: Positive: EOMI; Negative: Sclera icteric ENT Exam: Positive: Atraumatic Neck Exam: Positive: Supple Chest Exam: Positive: Diminished Heart Exam: Positive: Tachycardic, Regular Rhythm Abdomen Exam: Positive: Normal bowel sounds, Soft; Negative: Tenderness Extremity Exam: Negative: Edema Neuro Exam: Positive: Cranial Nerves 3-12 NL Psych Exam: Positive: Mental status NL, Mood NL Assessment /Plan Assessment Mrs. Luis is an 79 year old female with dementia who is COVID positive here for TIA. At home, she had an event where she stared off into space and developed aphasia and left sided weakness. Otherwise, she does not use oxygen at home and is requiring 4L here. She says her symptoms started 12 days prior. Will provide supportive care and work on weaning off oxygen. She may need home oxygen. Plan/VTE VTE Prophylaxis Ordered?: Yes Plan 1. TIA -Aphasia and left sided weakness -Resolved -MRI, MRA, and US carotids negative. Pending echo with bubble study 2. Question seizure -Daughter who is EMT witnessed event -Subsequently had aphasia and left sided weakness afterwards -Discussed with daughter about empirically treating with Keppra without EEG. She is agreeable -Follow up outpatient with neurology 3. COVID positive -Symptoms started about 12 days prior to admission -Requiring 4L of oxygen when not on oxygen at home -Supportive care 4. Hypertension -Blood pressure controlled off of blood pressure medications -Continue to monitor 5. Atrial fibrillation -Rate controlled -Continue with metoprolol and warfarin 6. Hypothyroidism -Continue with levothyroxine 7. Hyponatremia -Resolved 8. DVT ppx -Continue with warfarin, monitor INR VS, I&O, 24H, Qing Vital Signs/I&O Vital Signs Date Time Temp Pulse Resp B/P (MAP) Pulse Ox O2 Delivery O2 Flow Rate FiO2 06/15/20 15:00 97.2 78 17 144/70 (94) 95 Nasal Cannula 4.0 I&O- Last 24 Hours up to 6 AM 06/15/20 06:00 Intake Total 1200 ml Output Total 500 ml Balance 700 ml Laboratory Data 24H LABS Laboratory Tests 2 06/15/20 06:38: Immature Granulocyte % (Auto) 0.7, Neutrophils (%) (Auto) 78.4H, Lymphocytes (%) (Auto) 14.8L, Monocytes (%) (Auto) 5.7H, Eosinophils (%) (Auto) 0.2, Basophils (%) (Auto) 0.2, Neutrophils # (Auto) 3.6, Lymphocytes # (Auto) 0.7L, Monocytes # (Auto) 0.3, Eosinophils # (Auto) 0.0, Basophils # (Auto) 0.0, Nucleated Red Blood Cells % (auto) 0.0, Prothrombin Time 22.9H, Prothromb Time International Ratio 1.98, Anion Gap 10, Glomerular Filtration Rate 29.3L, Calcium Level 7.9L, Magnesium Level 2.0, Ferritin 1476H, Total Bilirubin 0.3, Direct Bilirubin 0.2, Aspartate Amino Transf (AST/SGOT) 40H, Alanine Aminotransferase (ALT/SGPT) 18, Alkaline Phosphatase 72, Total Protein 6.6, Albumin 2.7L, Albumin/Globulin Ratio 0.7L CBC/BMP Laboratory Tests 06/15/20 06:38 Microbiology Microbiology 06/14/20 Blood Culture - Preliminary, Resulted No growth after 24 hours . All specim... 06/14/20 Blood Culture - Preliminary, Resulted No growth after 24 hours . All specim... 06/13/20 Urine Culture - Final, Complete Klebsiella Pneumoniae 06/13/20 Respiratory Virus Panel (PCR) ([facility]) - Final, Complete SARS-CoV-2 (COVID 19) DAVID GALLEGO DO Jun 15, 2020 18:22
[2020-06-15 19:53] VITALS: BP 138/75
[2020-06-15] MEDS: NORTRIPTYLINE 10 MG CAP PO SCH (20:05)
[2020-06-15] MEDS: PRAVASTATIN 20 MG TAB PO SCH (20:05)
[2020-06-16] MEDS: NS 1,000 ML IV SCH (01:59)
[2020-06-16 03:55] VITALS: BP 159/70
[2020-06-16] MEDS: LEVOTHYROXINE 88MCG TABLET (0.088 MG) PO SCH (05:13)
[2020-06-16 06:40] LABS: BASO % 0.2 % (0.0-1.0); EOS % 0.2 % (0.0-3.0); HEMATOCRIT 38.9 % (36.0-47.0); LYMPH # 0.4 10^3/uL (1.5-5.0); MEAN CORPUSCULAR HEMOGLOBIN 28.8 pg (27.0-33.0); MEAN CORPUSCULAR HGB CONC 30.8 g/dl (32.0-36.5); MEAN CORPUSCULAR VOLUME 93.3 fl (80.0-96.0); MONO # 0.3 10^3/uL (0.0-0.8); MONO % 5.6 % (0.0-5.0); NEUTROPHILS # 3.9 10^3/uL (1.5-8.5); NEUTROPHILS % 84.1 % (36.0-66.0); PLATELET COUNT, AUTOMATED 183 10^3/uL (150-450); RED BLOOD COUNT 4.17 10^6/uL (4.00-5.40); WHITE BLOOD COUNT 4.7 10^3/uL (4.0-10.0)
[2020-06-16 06:54] LABS: INR 3.45; PROTHROMBIN TIME 35.5 SECONDS (12.5-14.3)
[2020-06-16 07:06] LABS: ALBUMIN 2.5 GM/DL (3.2-5.2); BILIRUBIN,DIRECT 0.2 MG/DL (0.0-0.2); BILIRUBIN,TOTAL 0.4 MG/DL (0.2-1.0); CALCIUM LEVEL 7.8 MG/DL (8.8-10.2); CREATININE FOR GFR 1.49 MG/DL (0.55-1.30); GLOMERULAR FILTRATION RATE 35.8 (>32); MAGNESIUM LEVEL 1.7 MG/DL (1.8-2.4); TOTAL PROTEIN 6.5 GM/DL (6.4-8.2)
[2020-06-16] MEDS: LevoFLOXacin 250 MG TABLET PO SCH (08:42)
[2020-06-16] MEDS: levETIRAcetam 250MG TABLET (KEPPRA) PO SCH ×2 (08:42→21:00)
[2020-06-16] MEDS: OMEPRAZOLE 20 MG CAP PO SCH (08:42)
[2020-06-16] MEDS: VITAMIN D 1,000 INTERNATIONAL UNITS TABLET PO SCH (08:42)
[2020-06-16] MEDS: MEMANTINE 5MG TABLET (NAMENDA) PO SCH ×2 (08:42→21:00)
[2020-06-16] MEDS: CALCITRIOL 0.25 MCG CAP (S0169) PO SCH (08:42)
[2020-06-16] MEDS: DOCUSATE SODIUM 100MG CAPSULE PO SCH ×2 (08:42→21:01)
--- NOTE | 2020-06-16 11:02 | REP ---
INDICATION: Hypoxia. COMPARISON: Multiple the latest 06/13/2020 TECHNIQUE: The technique utilized in obtaining the radiograph has magnified the cardiac silhouette and accentuated the interstitial markings. FINDINGS: Diffuse patchy airspace and interstitial opacities are seen throughout the lung silver representing a significant change from the prior exam. There are no pleural effusions. There is cardiomegaly accentuated by technique. There is no change in the osseous structures.. IMPRESSION: Abnormal opacities as described above. CHF versus pneumonia correlate clinically. <Electronically signed by Kingston Mckinnon > 06/16/20 [id number]
[2020-06-16 12:00] VITALS: BP 135/62
[2020-06-16] MEDS ORDERED: FUROSEMIDE 40MG/4ML VIAL (J1940) IV ONE ×2 (12:00→17:00)
[2020-06-16] MEDS: MAG SULF 1GM/100ML (MAG RUN) 1 GM in IV 1 EA IV SCH ×2 (12:29→16:04)
--- NOTE | 2020-06-16 13:33 | IPNPDOC ---
Subjective Date Seen The patient was seen on 06/16/20. Subjective Chief Complaint/HPI Mrs. Luis is an 79 year old female with atrial fibrillation on warfarin who is here for TIA and seizure like symptoms. Overnight, her oxygen requirements peaked at 12L. This morning, she was on 6L. She denies fever, chest pain, pleuritic chest pain, or cough. Examination demonstrated JVD. Lungs had crackles. Fluids were stopped and a dose of IV Lasix was given. Objective Physical Examination General Exam: Positive: Cooperative Eye Exam: Positive: EOMI; Negative: Sclera icteric ENT Exam: Positive: Atraumatic Neck Exam: Positive: Supple Chest Exam: Positive: Rales Heart Exam: Positive: Tachycardic, Regular Rhythm Abdomen Exam: Positive: Normal bowel sounds, Soft; Negative: Tenderness Extremity Exam: Negative: Edema Neuro Exam: Positive: Cranial Nerves 3-12 NL Psych Exam: Positive: Mental status NL, Mood NL Assessment /Plan Assessment Mrs. Luis is an 79 year old female with dementia who is COVID positive here for TIA. At home, she had an event where she stared off into space and developed aphasia and left sided weakness. She was worked up for TIA which has been negative. Unable to obtain EEG due to COVID status, but have empirically started on Keppra. Patient should follow up with her neurologist outpatient. Otherwise COVID symptoms started 12 days prior to admission. Overnight she developed worsening hypoxia 2/2 iatrogenic decompensated CHF. Fluids were stopped and Lasix given. Plan/VTE VTE Prophylaxis Ordered?: Yes Plan 1. TIA -Aphasia and left sided weakness -Resolved -MRI, MRA, and US carotids negative. Pending echo with bubble study 2. Question seizure -Daughter who is EMT witnessed event -Subsequently had aphasia and left sided weakness afterwards -Discussed with daughter about empirically treating with Keppra without EEG. She is agreeable -Follow up outpatient with neurology 3. COVID positive -Symptoms started about 12 days prior to admission -Requiring 6L of oxygen when not on oxygen at home -Supportive care 4. Decompensated CHF -CXR suggestive of CHF vs pneumonia -No fever, cough, or leukocytosis. Unlikely pneumonia -On IV fluids, JVD, bibasilar crackles, elevated BNP. More likely fluid overloaded -Discontinued fluids, gave a dose of IV Lasix -EF on 06/13/2020 is 65% 5. Hypertension -Blood pressure controlled off of blood pressure medications -Continue to monitor 6. Atrial fibrillation -Rate controlled -Continue with metoprolol and warfarin 7. Hypothyroidism -Continue with levothyroxine 8. Hyponatremia -Resolved 9. DVT ppx -Continue with warfarin, monitor INR VS, I&O, 24H, Fishbone Vital Signs/I&O Vital Signs Date Time Temp Pulse Resp B/P (MAP) Pulse Ox O2 Delivery O2 Flow Rate FiO2 06/16/20 12:00 6.0 06/16/20 12:00 97.2 80 20 135/62 (86) 88 Nasal Cannula I&O- Last 24 Hours up to 6 AM 06/16/20 06:00 Intake Total 1980 ml Output Total 1200 ml Balance 780 ml Laboratory Data 24H LABS Laboratory Tests 2 06/16/20 05:55: Immature Granulocyte % (Auto) 0.9, Neutrophils (%) (Auto) 84.1H, Lymphocytes (%) (Auto) 9.0L, Monocytes (%) (Auto) 5.6H, Eosinophils (%) (Auto) 0.2, Basophils (%) (Auto) 0.2, Neutrophils # (Auto) 3.9, Lymphocytes # (Auto) 0.4L, Monocytes # (Auto) 0.3, Eosinophils # (Auto) 0.0, Basophils # (Auto) 0.0, Nucleated Red Blood Cells % (auto) 0.0, Prothrombin Time 35.5H, Prothromb Time International Ratio 3.45, Anion Gap 6L, Glomerular Filtration Rate 35.8, Calcium Level 7.8L, Magnesium Level 1.7L, Ferritin 1403H, Total Bilirubin 0.4, Direct Bilirubin 0.2, Aspartate Amino Transf (AST/SGOT) 42H, Alanine Aminotransferase (ALT/SGPT) 15, Alkaline Phosphatase 69, ED-Cgh-S-Type Natriuretic Peptide 6861H, Total Protein 6.5, Albumin 2.5L, Albumin/Globulin Ratio 0.6L CBC/BMP Laboratory Tests 06/16/20 05:55 Microbiology Microbiology 06/14/20 Blood Culture - Preliminary, Resulted No Growth after 48 hours. All Specime... 06/14/20 Blood Culture - Preliminary, Resulted No Growth after 48 hours. All Specime... 06/13/20 Urine Culture - Final, Complete Klebsiella Pneumoniae 12/1/20 Respiratory Virus Panel (PCR) ([facility]) - Final, Complete SARS-CoV-2 (COVID 19) DAVID GALLEGO DO Jun 16, 2020 13:33
[2020-06-16 16:00] VITALS: BP 101/56
[2020-06-16] MEDS: dexameTHASONE 4 MG/ML 1ML VIAL (J1100 PER 1MG) IV SCH (17:28)
[2020-06-16 18:08] LABS: INR 3.88
[2020-06-16 20:00] VITALS: BP 130/62
[2020-06-16] MEDS: PRAVASTATIN 20 MG TAB PO SCH (21:00)
[2020-06-16] MEDS: NORTRIPTYLINE 10 MG CAP PO SCH (21:00)
[2020-06-17] VITALS: BP 117/63
[2020-06-17 04:00] VITALS: BP 121/63
[2020-06-17] MEDS: LevoFLOXacin 250 MG TABLET PO SCH (05:29)
[2020-06-17] MEDS: LEVOTHYROXINE 88MCG TABLET (0.088 MG) PO SCH (05:29)
[2020-06-17 07:56] LABS: HEMATOCRIT 39.2 % (36.0-47.0); HEMOGLOBIN 12.8 g/dl (12.0-15.5); LYMPH # 0.4 10^3/uL (1.5-5.0); LYMPH % 7.5 % (24.0-44.0); MEAN CORPUSCULAR HEMOGLOBIN 29.9 pg (27.0-33.0); MEAN CORPUSCULAR HGB CONC 32.7 g/dl (32.0-36.5); MEAN CORPUSCULAR VOLUME 91.6 fl (80.0-96.0); MONO # 0.3 10^3/uL (0.0-0.8); MONO % 5.6 % (0.0-5.0); PLATELET COUNT, AUTOMATED 197 10^3/uL (150-450); RED BLOOD COUNT 4.28 10^6/uL (4.00-5.40); WHITE BLOOD COUNT 4.7 10^3/uL (4.0-10.0)
[2020-06-17 08:00] VITALS: BP 125/69
[2020-06-17 08:11] LABS: INR 4.55; PROTHROMBIN TIME 44.2 SECONDS (12.5-14.3)
[2020-06-17 08:13] LABS: D-DIMER QUANT 2991.71 ng/ml (<500)
[2020-06-17] MEDS: VITAMIN D 1,000 INTERNATIONAL UNITS TABLET PO SCH (08:14)
[2020-06-17] MEDS: CALCITRIOL 0.25 MCG CAP (S0169) PO SCH (08:15)
[2020-06-17] MEDS: OMEPRAZOLE 20 MG CAP PO SCH (08:15)
[2020-06-17] MEDS: MEMANTINE 5MG TABLET (NAMENDA) PO SCH ×2 (08:15→22:17)
[2020-06-17] MEDS: levETIRAcetam 250MG TABLET (KEPPRA) PO SCH ×2 (08:15→22:16)
[2020-06-17] MEDS: DOCUSATE SODIUM 100MG CAPSULE PO SCH ×2 (08:15→22:17)
[2020-06-17 08:17] LABS: ALBUMIN 2.5 GM/DL (3.2-5.2); BILIRUBIN,DIRECT 0.2 MG/DL (0.0-0.2); BILIRUBIN,TOTAL 0.5 MG/DL (0.2-1.0); CALCIUM LEVEL 7.9 MG/DL (8.8-10.2); CREATININE FOR GFR 1.79 MG/DL (0.55-1.30); GLOMERULAR FILTRATION RATE 28.9 (>32); MAGNESIUM LEVEL 2.1 MG/DL (1.8-2.4); POTASSIUM SERUM 3.5 MEQ/L (3.5-5.1); TOTAL PROTEIN 6.7 GM/DL (6.4-8.2)
[2020-06-17] MEDS ORDERED: POTASSIUM CHLORIDE 10 MEQ SR TABLET PO ONE (09:15)
[2020-06-17 10:00] LABS: ABG BASE EXCESS -2.9 (-2.0-2.0); ABG HCO3 20.8 MEQ/L (22.0-26.0); ABG O2 SATURATION 90.4 % (95.0-99.0); ABG PARTIAL PRESSURE CO2 33.3 mmHg (35.0-45.0); ABG PARTIAL PRESSURE O2 58.4 mmHg (75.0-100.0); ABG STANDARD HCO3 21.9 MEQ/L (22.0-26.0); ABG TOTAL CO2 21.8 MEQ/L (23.0-31.0); ABG pH (ARTERIAL) 7.414 UNITS (7.350-7.450)
[2020-06-17 10:07] LABS: C REACTIVE PROTEIN QUANTITATIV 13.9 MG/DL (0.00-0.30)
[2020-06-17 12:00] VITALS: BP 109/65
[2020-06-17] MEDS ORDERED: FUROSEMIDE 40MG/4ML VIAL (J1940) IV ONE (13:00)
--- NOTE | 2020-06-17 14:23 | CR ---
CONSULTATION CHIEF COMPLAINT: Weakness. HISTORY OF PRESENT ILLNESS: Miss Luis is an 79-year-old female with a history of hypertension, atrial fibrillation, on anticoagulation, hypothyroidism, CKD, previous history of C. diff, a history of early Alzheimer's, who presented to the ED initially the complaint of the left-sided weakness. The patient was reportedly found to have weakness on her left side by her daughter who had been visiting her. She endorsed only generalized weakness. When she initially presented in the ED, she did not appear to have any focal localizing symptoms. The patient was also found in the ED to be positive for coronavirus after she had an exposure to a hairdresser who was also positive. The patient was initially admitted for neurologic workup for a possible TIA as well as for her COVID pneumonia. She was started on IV fluids for hydration given history as well of recent diarrhea. The patient was also hypoxic and required nasal cannula oxygen supplementation initially on four liters a minute at admission but her initial chest x-ray had shown evidence of some atelectasis as well as mild diffuse interstitial fibrosis pattern as well as cardiomegaly. She was not given steroids or remdesivir initially on her admission. Yesterday, she was noted to have increased shortness of breath as well as oxygen requirement overnight. She was up to 10 liters a minute of nasal cannula oxygen and on exam was found to have crackles as well as elevated JVD yesterday. Her IV fluids were discontinued and she was given IV Lasix 40 mg IV x2 with good urine output. She had a Michelle catheter placed for accurate monitoring of her ins and outs. The patient was also instructed yesterday to have some periods of awake pronation although she was told to do it overnight while she was sleeping. The patient was also started on dexamethasone yesterday and her antibiotic dose was increased. This morning, she appears to have had improvement in her shortness of breath. She states she feels much better at this point and denies any significant shortness of breath. At rest, she also appears to be in no acute distress and is not using any accessory muscles. The patient is still on 10 liters a minute of nasal cannula oxygen although it appears yesterday she was able to be weaned down during the day to a low of 6 liters a minute and then overnight in the evening had required higher amounts of oxygen anywhere from 8-10 liters. She does have a history of Alzheimer's dementia and she occasionally will have her nasal cannula oxygen not fully in her nares. She also continued to have some generalized weakness and has been mostly bedbound during her admission here. She needs extensive support for transitioning to the urinal and the bedpan and she also has not been using her incentive spirometer as ordered given her dementia. MEDICAL AND SURGICAL HISTORY: 1. Hypertension. 2. Atrial fibrillation. 3. Status post cardioversion on anticoagulation. 4. Hypothyroidism. 5. CKD. 6. Iron deficiency anemia. 7. History of C. diff. 8. Early Alzheimer's. 9. Cholecystectomy. 10. Hysterectomy. 11. History of gastric ulcer. 12. Appendectomy. FAMILY HISTORY: Mother with a history of heart disease. No family history of cancer. SOCIAL HISTORY: No previous of alcohol or tobacco use. The patient lives alone. HOME MEDICATIONS: 1. Align. 2. Calcitriol. 3. Vitamin D3. 4. Colace. 5. Synthroid. 6. Namenda. 7. Metoprolol. 8. Nortriptyline. 9. Coumadin. 10. Dexilant. 11. Furosemide. ALLERGIES: PENICILLIN, HYDROCHLOROTHIAZIDE, Rivastigmine, CLINDAMYCIN, Rivaroxaban, triamterene. PHYSICAL EXAMINATION: Vitals: Temperature 98.4, pulse 72, respirations 28, blood pressure 121/63, O2 sat 91% on 8-10 liters a minute of nasal cannula, in 400, out 2.9 liters, negative 2.4 liters. General: The patient is an elderly female, is lying in bed awake, alert and oriented to person and place. She does not appear to be in any acute distress and is not using any accessory muscles for respiration. HEENT: Normocephalic, atraumatic. Pupils are reactive to light bilaterally and mucous membranes are moist. Neck: Supple. Trachea is midline. No palpable cervical adenopathy. Cardiovascular: Irregularly irregular with normal rate. There is a systolic murmur auscultated. Pulmonary: There are crackles bilaterally in the bases. No wheezing or rhonchi. Abdomen: Soft, nontender, nondistended. Unable to appreciate any organomegaly. Extremities: There is mild pitting lower extremity bilaterally. LABORATORY DATA: WBC 4.7, hemoglobin 12.8, platelets of 197. Chemistries: Sodium is 141. Potassium is 2.5. Chloride is 108, bicarb 21, BUN 37. Creatinine is 1.79. Glucose is 135. Calcium is 7.9. Ferritin is 1421. BNP was 6861. AST 38, ALT 15. INR was 4.55. Procalcitonin was 0.33. Echo on admission showed a dilated left atrium with increased left atrial pressures. There was normal EF. There is evidence of moderate pulmonary hypertension with a dilated right atrium and mildly dilated IVC with evidence of increased central venous pressure. There is also moderately severe WI. Chest x-ray, 12- showed increased patchy opacities and increased interstitial markings bilaterally as well as a more dense opacity particularly in the left lower lobe. There is cardiomegaly noted. ASSESSMENT AND PLAN: Miss Luis is an 79-year-old female with a past medical history of hypertension, atrial fibrillation, CKD, Alzheimer's, who presented initially with complaints of left-sided weakness. The patient was admitted for evaluation of a TIA and was also found to be COVID positive with acute hypoxemic respiratory failure requiring nasal cannula oxygen supplementation. The patient was also started initially on IV fluids. Her INR was also subtherapeutic initially on admission and she was continued with Coumadin for anticoagulation. She had evidence of a UTI as well and was on Levaquin. Yesterday, the patient was noted to have increased shortness of breath as well as increasing oxygen requirements. On exam, she also appeared to have evidence of increased fluid overload with JVD and crackles. She was given IV Lasix yesterday and did have improvement in her urine output and clinically the patient reports improvement in her symptoms. Yesterday, she was able to wean down on her oxygen requirements down to six liters a minute. She was on four liters a minute when she arrived initially. Overnight, however, her oxygen requirements increased again and she was up to 8-10 liters a minute. The patient's chest x-ray does show worsening interstitial markings and some patchy alveolar opacities which can be in the setting of pulmonary edema. There is also a more dense opacity in the left lower lobe which may be possible pneumonia. She does not appear to be febrile and she does not have any leukocytosis and denies any significant coughing. Her antibiotics were increased from the lower dose of Levaquin to a higher dose. We will continue with dexamethasone given her increasing requirements and for her history of COVID pneumonia. Can also continue with Levaquin for antibiotics. Her procalcitonin yesterday was mildly elevated and there is a possibility of superimposed bacterial pneumonia although she does not have any fever or leukocytosis. Suspect her findings on chest x-ray are likely in the setting of pulmonary edema and she was on IV fluids and her echo initially had shown already evidence of elevated central venous pressure as well as moderately severe MR and a degree of pulmonary hypertension as well as elevated left atrial pressures. We will continue with Lasix for diuresis. Her creatinine did increase slightly today and she did have a very good response yesterday to the 80 mg IV of Lasix and so we will continue with just 40 mg IV today with monitoring of her electrolytes and repleting as needed. Suspect some of her hypoxia is also in the setting of atelectasis. The worsening opacities in the lower lobes may be in the setting as well of atelectasis. She has been mostly bed-bound during her admission here and with her Alzheimer's has not been compliant with the incentive spirometer. We will continue to encourage incentive spirometer use and will also continue with awake pronation as the patient is able to tolerate and comply. We will get an ABG to ensure there is no evidence of hypercarbia and we will attempt to get the ABG on 3-4 liters of nasal cannula oxygen as suspect her pulse oximeter is not entire accurate reflection of her oxygenation. Would attempt to get patient out of bed into chair as tolerated. There was also concern initially that patient was subtherapeutic on her INR. With her COVID pneumonia, the patient would be hypercoagulopathic. However, since yesterday, her INR has now been therapeutic. Would cont with coumadin for anticoagulation. If her INR drops below 2, then would start her on Lovenox for anticoagulation for bridging. GI PROHYLAXIS: Omeprazole. DVT PROPHYLAXIS: On Coumadin. CODE STATUS: DNR/DNI. MTDD
[2020-06-17 16:00] VITALS: BP 125/59
--- NOTE | 2020-06-17 16:22 | IPNPDOC ---
Subjective Date Seen The patient was seen on 06/17/20. Subjective Chief Complaint/HPI Mrs. Luis is an 79 year old female with atrial fibrillation on warfarin who is here for TIA and seizure like symptoms. Yesterday, she had 40mg IV lasix x2. She responded well with good urine output (net negative 2490mL). Still required 10L overnight, but may be due to a poor read from probe. Today, she is down to 3L of oxygen and she feels better today than yesterday. Dyspnea is improved. Denies fever, chest pain, or abdominal pain. Objective Physical Examination General Exam: Positive: Cooperative Eye Exam: Positive: EOMI; Negative: Sclera icteric ENT Exam: Positive: Atraumatic Neck Exam: Positive: Supple Chest Exam: Positive: Rales Heart Exam: Positive: Tachycardic, Regular Rhythm Abdomen Exam: Positive: Normal bowel sounds, Soft; Negative: Tenderness Extremity Exam: Negative: Edema Neuro Exam: Positive: Cranial Nerves 3-12 NL Psych Exam: Positive: Mental status NL, Mood NL Assessment /Plan Assessment Mrs. Luis is an 79 year old female with dementia who is COVID positive here for TIA. At home, she had an event where she stared off into space and developed aphasia and left sided weakness. She was worked up for TIA which has been negative. Unable to obtain EEG due to COVID status, but have empirically started on Keppra. Patient should follow up with her neurologist outpatient. Otherwise COVID symptoms started 12 days prior to admission. During her hospitalization, she developed worsening hypoxia 2/2 iatrogenic decompensated CHF. Fluids were stopped and Lasix given with improvement in symptoms and oxygenation. Plan/VTE VTE Prophylaxis Ordered?: Yes Plan 1. TIA -Aphasia and left sided weakness -Resolved -MRI, MRA, and US carotids negative. -Echo demonstrated no thrombus -Most likely cause is subtherapeutic INR in the setting of afib and COVID 2. Question seizure -Daughter who is EMT witnessed event -Subsequently had aphasia and left sided weakness afterwards -Discussed with daughter about empirically treating with Keppra without EEG. She is agreeable -Follow up outpatient with neurology 3. COVID positive -Symptoms started about 12 days prior to admission -Requiring oxygen inpatient, not on oxygen at home -Supportive care -Trend inflammatory markers 4. Decompensated CHF -CXR suggestive of CHF vs pneumonia -No fever, cough, or leukocytosis. Unlikely pneumonia -On IV fluids, JVD, bibasilar crackles, elevated BNP. More likely fluid overloaded -Discontinued fluids, gave a dose of IV Lasix -EF on 06/13/2020 is 65% 5. Hypertension -Blood pressure controlled off of blood pressure medications -Continue to monitor 6. Atrial fibrillation -Rate controlled -Continue with metoprolol -Warfarin held as supratherapeutic 7. Hypothyroidism -Continue with levothyroxine 8. Hyponatremia -Resolved 9. DVT ppx -Warfarin held as supratherapeutic Disposition: Pending improvement of inflammatory markers, respiratory status, and INR VS, I&O, 24H, Fishbone Vital Signs/I&O Vital Signs Date Time Temp Pulse Resp B/P (MAP) Pulse Ox O2 Delivery O2 Flow Rate FiO2 06/17/20 12:00 3.0 06/17/20 12:00 97.2 74 24 109/65 (80) 91 Nasal Cannula I&O- Last 24 Hours up to 6 AM 06/17/20 06:00 Intake Total 400 ml Output Total 2600 ml Balance -2200 ml Laboratory Data 24H LABS Laboratory Tests 2 06/16/20 17:32: Prothrombin Time 39.0H, Prothromb Time International Ratio 3.88 06/17/20 07:37: Prothrombin Time 44.2H, Prothromb Time International Ratio 4.55, Immature Granulocyte % (Auto) 0.9, Neutrophils (%) (Auto) 86.0H, Lymphocytes (%) (Auto) 7.5L, Monocytes (%) (Auto) 5.6H, Eosinophils (%) (Auto) 0.0, Basophils (%) (Auto) 0.0, Neutrophils # (Auto) 4.0, Lymphocytes # (Auto) 0.4L, Monocytes # (Auto) 0.3, Eosinophils # (Auto) 0.0, Basophils # (Auto) 0.0, Nucleated Red Blood Cells % (auto) 0.0, D-Dimer, Quantitative 2991.71H, Anion Gap 12, Glomerular Filtration Rate 28.9L, Calcium Level 7.9L, Magnesium Level 2.1, Ferritin 1421H, Total Bilirubin 0.5, Direct Bilirubin 0.2, Aspartate Amino Transf (AST/SGOT) 38H, Alanine Aminotransferase (ALT/SGPT) 15, Alkaline Phosphatase 73, C-Reactive Protein, Quantitative 13.90H, Total Protein 6.7, Albumin 2.5L, Albumin/Globulin Ratio 0.6L 06/17/20 09:54: Blood Gas Bicarbonate Standard 21.9L, Arterial Blood pH 7.414, Arterial Blood Partial Pressure CO2 33.3L, Arterial Blood Partial Pressure O2 58.4L, Arterial Blood Total CO2 21.8L, Arterial Blood HCO3 20.8L, Arterial Blood Base Excess - 2.9L, Arterial Blood Oxygen Saturation 90.4L CBC/BMP Laboratory Tests 06/17/20 07:37 Microbiology Microbiology 06/14/20 Blood Culture - Preliminary, Resulted No Growth after 72 hours. All specime... 06/14/20 Blood Culture - Preliminary, Resulted No Growth after 72 hours. All specime... 06/13/20 Urine Culture - Final, Complete Klebsiella Pneumoniae 06/13/20 Respiratory Virus Panel (PCR) ([facility]) - Final, Complete SARS-CoV-2 (COVID 19) DAVID GALLEGO DO Jun 17, 2020 16:12
[2020-06-17] MEDS: dexameTHASONE 4 MG/ML 1ML VIAL (J1100 PER 1MG) IV SCH (19:18)
[2020-06-17 20:00] VITALS: BP 137/67
[2020-06-17] MEDS: NORTRIPTYLINE 10 MG CAP PO SCH (22:16)
[2020-06-17] MEDS: PRAVASTATIN 20 MG TAB PO SCH (22:17)
[2020-06-18] VITALS: BP 136/78
[2020-06-18 04:00] VITALS: BP 129/71
[2020-06-18] MEDS: LEVOTHYROXINE 88MCG TABLET (0.088 MG) PO SCH (05:37)
[2020-06-18 08:00] VITALS: BP 123/69
[2020-06-18] MEDS: DOCUSATE SODIUM 100MG CAPSULE PO SCH ×2 (08:12→21:44)
[2020-06-18] MEDS: CALCITRIOL 0.25 MCG CAP (S0169) PO SCH (08:12)
[2020-06-18] MEDS: levETIRAcetam 250MG TABLET (KEPPRA) PO SCH ×2 (08:12→21:44)
[2020-06-18] MEDS: OMEPRAZOLE 20 MG CAP PO SCH (08:12)
[2020-06-18] MEDS: VITAMIN D 1,000 INTERNATIONAL UNITS TABLET PO SCH (08:12)
[2020-06-18] MEDS: MEMANTINE 5MG TABLET (NAMENDA) PO SCH ×2 (08:12→21:44)
[2020-06-18] MEDS ORDERED: ONDANSETRON 4 MG ORAL DISINTEGRATING TAB PO PRN (09:00)
[2020-06-18 10:03] LABS: BASO % 0.1 % (0.0-1.0); HEMATOCRIT 39.7 % (36.0-47.0); HEMOGLOBIN 12.8 g/dl (12.0-15.5); LYMPH # 0.4 10^3/uL (1.5-5.0); LYMPH % 5.1 % (24.0-44.0); MEAN CORPUSCULAR HEMOGLOBIN 29.7 pg (27.0-33.0); MEAN CORPUSCULAR HGB CONC 32.2 g/dl (32.0-36.5); MEAN CORPUSCULAR VOLUME 92.1 fl (80.0-96.0); MONO # 0.3 10^3/uL (0.0-0.8); MONO % 4.7 % (0.0-5.0); NEUTROPHILS # 6.5 10^3/uL (1.5-8.5); NEUTROPHILS % 89.3 % (36.0-66.0); PLATELET COUNT, AUTOMATED 251 10^3/uL (150-450); RED BLOOD COUNT 4.31 10^6/uL (4.00-5.40); WHITE BLOOD COUNT 7.3 10^3/uL (4.0-10.0)
[2020-06-18 10:26] LABS: PROTHROMBIN TIME 50.1 SECONDS (12.5-14.3)
[2020-06-18 10:27] LABS: PARTIAL THROMBOPLASTIN TIME 60.8 SECONDS (24.2-38.5)
[2020-06-18 10:34] LABS: INR 5.34
[2020-06-18 10:43] LABS: ALBUMIN 2.4 GM/DL (3.2-5.2); ALT/SGPT 17 U/L (12-78); BILIRUBIN,DIRECT < 0.1 MG/DL (0.0-0.2); BILIRUBIN,TOTAL 0.5 MG/DL (0.2-1.0); BLOOD UREA NITROGEN 51 MG/DL (7-18); C REACTIVE PROTEIN QUANTITATIV 8.44 MG/DL (0.00-0.30); CALCIUM LEVEL 8.2 MG/DL (8.8-10.2); CARBON DIOXIDE LEVEL 22 MEQ/L (21-32); CHLORIDE LEVEL 105 MEQ/L (98-107); CREATININE FOR GFR 1.95 MG/DL (0.55-1.30); FERRITIN 1476 NG/ML (8-252); GLOMERULAR FILTRATION RATE 26.2 (>32); GLUCOSE, FASTING 96 MG/DL (70-100); MAGNESIUM LEVEL 2.1 MG/DL (1.8-2.4); POTASSIUM SERUM 5.4 MEQ/L (3.5-5.1); SODIUM LEVEL 135 MEQ/L (136-145)
[2020-06-18] MEDS ORDERED: PHYTONADIONE 5 MG TAB PO ONE (10:45)
[2020-06-18 12:00] VITALS: BP 121/85
[2020-06-18 16:00] VITALS: BP 134/64
[2020-06-18] MEDS: dexameTHASONE 4 MG/ML 1ML VIAL (J1100 PER 1MG) IV SCH (17:28)
[2020-06-18 20:00] VITALS: BP 119/59
--- NOTE | 2020-06-18 20:14 | IPNPDOC ---
Subjective Date Seen The patient was seen on 06/18/20. Subjective Chief Complaint/HPI Mrs. Luis is an 79 year old female with atrial fibrillation on warfarin who is here for TIA and seizure like symptoms. Overnight, her oxygen requirements went up to 5L to 6L, but this morning, oxygen requirements to 3L. She may have a degree of sleep apnea. Otherwise, this morning, she feel that her breathing has improved. Denies fever, chest pain, or abdominal pain Objective Physical Examination General Exam: Positive: Cooperative Eye Exam: Positive: EOMI; Negative: Sclera icteric ENT Exam: Positive: Atraumatic Neck Exam: Positive: Supple Chest Exam: Positive: Rales Heart Exam: Positive: Tachycardic, Regular Rhythm Abdomen Exam: Positive: Normal bowel sounds, Soft; Negative: Tenderness Extremity Exam: Negative: Edema Neuro Exam: Positive: Cranial Nerves 3-12 NL Psych Exam: Positive: Mental status NL, Mood NL Assessment /Plan Assessment Mrs. Luis is an 79 year old female with dementia who is COVID positive here for TIA. At home, she had an event where she stared off into space and developed aphasia and left sided weakness. She was worked up for TIA which has been negative. Unable to obtain EEG due to COVID status, but have empirically started on Keppra. Patient should follow up with her neurologist outpatient. Otherwise COVID symptoms started 12 days prior to admission. During her hospitalization, she developed worsening hypoxia 2/2 iatrogenic decompensated CHF. Fluids were stopped and Lasix given with improvement in symptoms and oxygenation. Discuss case with pulmonology. Patient would be able to go home on 2 to 3L in the daytime and 5 to 6L at night as needed for suspected sleep apnea. Daughter is willing to come up and assist in her care. Otherwise, patient has not yet passed physical therapy to be able to return home. Plan/VTE VTE Prophylaxis Ordered?: Yes Plan 1. TIA -Aphasia and left sided weakness -Resolved -MRI, MRA, and US carotids negative. -Echo demonstrated no thrombus -Most likely cause is subtherapeutic INR in the setting of afib and COVID 2. Question seizure -Daughter who is EMT witnessed event -Subsequently had aphasia and left sided weakness afterwards -Discussed with daughter about empirically treating with Keppra without EEG. She is agreeable -Follow up outpatient with neurology 3. COVID positive -Symptoms started about 12 days prior to admission -Requiring oxygen inpatient, not on oxygen at home -Supportive care -Trend inflammatory markers 4. Decompensated CHF -CXR suggestive of CHF vs pneumonia -No fever, cough, or leukocytosis. Unlikely pneumonia -On IV fluids, JVD, bibasilar crackles, elevated BNP. More likely fluid overlo aded -Discontinued fluids, will restart lasix when renal function improves -EF on 06/13/2020 is 65% 5. Hypertension -Blood pressure controlled off of blood pressure medications -Continue to monitor 6. Atrial fibrillation -Rate controlled -Continue with metoprolol -Warfarin held as supratherapeutic 7. Hypothyroidism -Continue with levothyroxine 8. Hyponatremia -Resolved 9. DVT ppx -Warfarin held as supratherapeutic Disposition: Pending improvement of inflammatory markers, respiratory status, and INR VS, I&O, 24H, Fishbone Vital Signs/I&O Vital Signs Date Time Temp Pulse Resp B/P (MAP) Pulse Ox O2 Delivery O2 Flow Rate FiO2 06/18/20 16:00 2.0 06/18/20 13:34 91 High Flow Cannula 06/18/20 12:00 98.2 79 24 121/85 (97) I&O- Last 24 Hours up to 6 AM 06/18/20 05:59 Intake Total 1020 ml Output Total 1250 ml Balance -230 ml Laboratory Data 24H LABS Laboratory Tests 2 06/18/20 08:07: Prothrombin Time 50.1H, Prothromb Time International Ratio 5.34*H, Activated Partial Thromboplast Time 60.8H, Fibrinogen 649H, Anion Gap 8, Glomerular Filtration Rate 26.2L, Calcium Level 8.2L, Magnesium Level 2.1, Ferritin 1476H, Total Bilirubin 0.5, Direct Bilirubin < 0.1, Aspartate Amino Transf (AST/SGOT) 49H, Alanine Aminotransferase (ALT/SGPT) 17, Alkaline Phosphatase 72, C-Reactive Protein, Quantitative 8.44H, Total Protein 7.0, Albumin 2.4L, Albumin/Globulin Ratio 0.5L 06/18/20 08:08: Immature Granulocyte % (Auto) 0.8, Neutrophils (%) (Auto) 89.3H, Lymphocytes (%) (Auto) 5.1L, Monocytes (%) (Auto) 4.7, Eosinophils (%) (Auto) 0.0, Basophils (%) (Auto) 0.1, Neutrophils # (Auto) 6.5, Lymphocytes # (Auto) 0.4L, Monocytes # (Auto) 0.3, Eosinophils # (Auto) 0.0, Basophils # (Auto) 0.0, Nucleated Red Blood Cells % (auto) 0.0 CBC/BMP Laboratory Tests 06/18/20 08:07 06/18/20 08:08 Microbiology Microbiology 06/14/20 Blood Culture - Preliminary, Resulted No Growth after 72 hours. All specime... 06/14/20 Blood Culture - Preliminary, Resulted No Growth after 72 hours. All specime... 06/13/20 Urine Culture - Final, Complete Klebsiella Pneumoniae 06/13/20 Respiratory Virus Panel (PCR) ([facility]) - Final, Complete SARS-CoV-2 (COVID 19) DAVID GALLEGO DO Jun 18, 2020 20:14
[2020-06-18 21:37] LABS: CALCIUM LEVEL 7.9 MG/DL (8.8-10.2); CREATININE FOR GFR 2.07 MG/DL (0.55-1.30); GLOMERULAR FILTRATION RATE 24.5 (>32); POTASSIUM SERUM 4.3 MEQ/L (3.5-5.1)
[2020-06-18] MEDS: NORTRIPTYLINE 10 MG CAP PO SCH (21:44)
[2020-06-18] MEDS: PRAVASTATIN 20 MG TAB PO SCH (21:44)
[2020-06-19] VITALS (20 sets, daily range): BP systolic 116–153; BP diastolic 53–85; O2SAT 79–96
[2020-06-19] MEDS: LEVOTHYROXINE 88MCG TABLET (0.088 MG) PO SCH (05:31)
[2020-06-19] MEDS ORDERED: LevoFLOXacin 750 MG TABLET PO SCH (06:00)
[2020-06-19 06:59] LABS: BASO % 0.2 % (0.0-1.0); HEMOGLOBIN 12.6 g/dl (12.0-15.5); LYMPH # 0.4 10^3/uL (1.5-5.0); LYMPH % 6.2 % (24.0-44.0); MEAN CORPUSCULAR HEMOGLOBIN 29.6 pg (27.0-33.0); MEAN CORPUSCULAR HGB CONC 32.3 g/dl (32.0-36.5); MEAN CORPUSCULAR VOLUME 91.8 fl (80.0-96.0); MONO # 0.3 10^3/uL (0.0-0.8); MONO % 4.2 % (0.0-5.0); NEUTROPHILS # 5.7 10^3/uL (1.5-8.5); PLATELET COUNT, AUTOMATED 255 10^3/uL (150-450); RED BLOOD COUNT 4.25 10^6/uL (4.00-5.40); WHITE BLOOD COUNT 6.4 10^3/uL (4.0-10.0)
[2020-06-19 07:10] LABS: INR 4.34; PROTHROMBIN TIME 42.6 SECONDS (12.5-14.3)
[2020-06-19 07:33] LABS: CALCIUM LEVEL 8.6 MG/DL (8.8-10.2); CREATININE FOR GFR 2.07 MG/DL (0.55-1.30); GLOMERULAR FILTRATION RATE 24.5 (>32); MAGNESIUM LEVEL 2.2 MG/DL (1.8-2.4); POTASSIUM SERUM 4.2 MEQ/L (3.5-5.1)
[2020-06-19] MEDS: OMEPRAZOLE 20 MG CAP PO SCH (09:17)
[2020-06-19] MEDS: VITAMIN D 1,000 INTERNATIONAL UNITS TABLET PO SCH (09:17)
[2020-06-19] MEDS: levETIRAcetam 250MG TABLET (KEPPRA) PO SCH (09:18)
[2020-06-19] MEDS: MEMANTINE 5MG TABLET (NAMENDA) PO SCH ×2 (09:18→20:21)
[2020-06-19] MEDS: CALCITRIOL 0.25 MCG CAP (S0169) PO SCH (09:18)
[2020-06-19] MEDS: DOCUSATE SODIUM 100MG CAPSULE PO SCH ×2 (09:18→20:22)
[2020-06-19] MEDS ORDERED: NS 500 ML IV ONE (12:30)
--- NOTE | 2020-06-19 14:23 | IPNPDOC ---
Subjective Date Seen The patient was seen on 06/19/20. Subjective Chief Complaint/HPI Mrs. Luis is an 79 year old female with atrial fibrillation on warfarin who is here for TIA and seizure like symptoms. Overnight, she required 5L of NC. This noon, she got up to sit in chair, she vasovagal and desaturated. She required 30L 50% FiO2. When I saw her, she appeared comfortable. Complained of headache, but has been improving since the vasovagal event. Nurse reported that she has not been eating well and creatinine has been increasing. Reinforced using the incentive spirometer. Otherwise, she did not pass physical therapy Objective Physical Examination General Exam: Positive: Cooperative Eye Exam: Positive: EOMI; Negative: Sclera icteric ENT Exam: Positive: Atraumatic Neck Exam: Positive: Supple Chest Exam: Positive: Rales Heart Exam: Positive: Tachycardic, Regular Rhythm Abdomen Exam: Positive: Normal bowel sounds, Soft; Negative: Tenderness Extremity Exam: Negative: Edema Neuro Exam: Positive: Cranial Nerves 3-12 NL Psych Exam: Positive: Mental status NL, Mood NL Assessment /Plan Assessment Mrs. Luis is an 79 year old female with dementia who is COVID positive here for TIA. At home, she had an event where she stared off into space and developed aphasia and left sided weakness. She was worked up for TIA which has been negat sukhdeep. Unable to obtain EEG due to COVID status, but have empirically started on Keppra. Patient should follow up with her neurologist outpatient. Otherwise COVID symptoms started 12 days prior to admission. During her hospitalization, she developed worsening hypoxia 2/2 iatrogenic decompensated CHF. Fluids were stopped and Lasix given with improvement in symptoms and oxygenation. Discuss case with pulmonology. Patient would be able to go home on 2 to 3L in the daytime and 5 to 6L at night as needed for suspected sleep apnea. Daughter is willing to come up and assist in her care. Otherwise, patient has not yet passed physical therapy to be able to return home. Plan/VTE VTE Prophylaxis Ordered?: Yes Plan 1. TIA -Aphasia and left sided weakness -Resolved -MRI, MRA, and US carotids negative. -Echo demonstrated no thrombus -Most likely cause is subtherapeutic INR in the setting of afib and COVID 2. Question seizure -Daughter who is EMT witnessed event -Subsequently had aphasia and left sided weakness afterwards -Discussed with daughter about empirically treating with Keppra without EEG. She is agreeable -Follow up outpatient with neurology 3. COVID positive -Symptoms started about 12 days prior to admission -Requiring oxygen inpatient, not on oxygen at home -Supportive care -Trend inflammatory markers 4. Decompensated CHF -CXR suggestive of CHF vs pneumonia -No fever, cough, or leukocytosis. Unlikely pneumonia -On IV fluids, JVD, bibasilar crackles, elevated BNP. More likely fluid overloaded -Discontinued fluids, will restart lasix when renal function improves -EF on 06/13/2020 is 65% 5. Hypertension -Blood pressure controlled off of blood pressure medications -Continue to monitor 6. Atrial fibrillation -Rate controlled -Continue with metoprolol -Warfarin held as supratherapeutic -Continue to monitor INR 7. Hypothyroidism -Continue with levothyroxine 8. Hyponatremia -Resolved 9. Anorexia -Poor appetite. On omeprazole, will add on Carafate to see if it would help 9. DVT ppx -Warfarin held as supratherapeutic Disposition: Pending improvement of inflammatory markers, respiratory status, and INR. Has not yet passed physical therapy VS, I&O, 24H, [place] Vital Signs/I&O Vital Signs Date Time Temp Pulse Resp B/P (MAP) Pulse Ox O2 Delivery O2 Flow Rate FiO2 06/19/20 12:35 91 HVNI-Vapotherm 30.0 50 06/19/20 12:10 116/81 (93) 06/19/20 12:00 97.5 84 24 I&O- Last 24 Hours up to 6 AM 06/19/20 06:00 Intake Total 1120 ml Output Total 350 ml Balance 770 ml Laboratory Data 24H LABS Laboratory Tests 2 06/18/20 20:57: Anion Gap 11, Glomerular Filtration Rate 24.5L, Calcium Level 7.9L 06/19/20 06:48: Anion Gap 8, Glomerular Filtration Rate 24.5L, Calcium Level 8.6L, Immature Granulocyte % (Auto) 1.4, Neutrophils (%) (Auto) 88.0H, Lymphocytes (%) (Auto) 6.2L, Monocytes (%) (Auto) 4.2, Eosinophils (%) (Auto) 0.0, Basophils (%) (Auto) 0.2, Neutrophils # (Auto) 5.7, Lymphocytes # (Auto) 0.4L, Monocytes # (Auto) 0.3, Eosinophils # (Auto) 0.0, Basophils # (Auto) 0.0, Nucleated Red Blood Cells % (auto) 0.0, Prothrombin Time 42.6H, Prothromb Time International Ratio 4.34, Fibrinogen 641H, Magnesium Level 2.2, Ferritin 1462H CBC/BMP Laboratory Tests 06/18/20 20:57 06/19/20 06:48 Microbiology Microbiology 06/14/20 Blood Culture - Final, Complete NO GROWTH AFTER 5 DAYS 06/14/20 Blood Culture - Final, Complete NO GROWTH AFTER 5 DAYS 06/13/20 Urine Culture - Final, Complete Klebsiella Pneumoniae 06/13/20 Respiratory Virus Panel (PCR) ([facility]) - Final, Complete SARS-CoV-2 (COVID 19) DAVID GALLEGO DO Jun 19, 2020 14:23
[2020-06-19] MEDS: SUCRALFATE 1 GM TAB PO SCH ×2 (17:46→20:21)
[2020-06-19] MEDS: dexameTHASONE 4 MG/ML 1ML VIAL (J1100 PER 1MG) IV SCH (17:47)
[2020-06-19] MEDS: NORTRIPTYLINE 10 MG CAP PO SCH (20:21)
[2020-06-19] MEDS: PRAVASTATIN 20 MG TAB PO SCH (20:21)
[2020-06-20] VITALS (11 sets, daily range): BP systolic 120–152; BP diastolic 63–75; O2SAT 91–98
[2020-06-20] MEDS: LEVOTHYROXINE 88MCG TABLET (0.088 MG) PO SCH (06:06)
[2020-06-20 07:01] LABS: HEMATOCRIT 38.2 % (36.0-47.0); HEMOGLOBIN 12.5 g/dl (12.0-15.5); LYMPH # 0.3 10^3/uL (1.5-5.0); LYMPH % 5.4 % (24.0-44.0); MEAN CORPUSCULAR HEMOGLOBIN 29.6 pg (27.0-33.0); MEAN CORPUSCULAR HGB CONC 32.7 g/dl (32.0-36.5); MEAN CORPUSCULAR VOLUME 90.5 fl (80.0-96.0); MONO # 0.3 10^3/uL (0.0-0.8); MONO % 4.3 % (0.0-5.0); NEUTROPHILS % 86.6 % (36.0-66.0); PLATELET COUNT, AUTOMATED 251 10^3/uL (150-450); RED BLOOD COUNT 4.22 10^6/uL (4.00-5.40); WHITE BLOOD COUNT 5.8 10^3/uL (4.0-10.0)
[2020-06-20 07:12] LABS: INR 3.2; PROTHROMBIN TIME 33.5 SECONDS (12.5-14.3)
[2020-06-20 07:15] LABS: D-DIMER QUANT 1505.88 ng/ml (<500)
[2020-06-20 07:33] LABS: C REACTIVE PROTEIN QUANTITATIV 6.81 MG/DL (0.00-0.30); CALCIUM LEVEL 7.9 MG/DL (8.8-10.2); CREATININE FOR GFR 1.7 MG/DL (0.55-1.30); GLOMERULAR FILTRATION RATE 30.7 (>32); POTASSIUM SERUM 4.2 MEQ/L (3.5-5.1)
[2020-06-20] MEDS: OMEPRAZOLE 20 MG CAP PO SCH (07:49)
[2020-06-20] MEDS: CALCITRIOL 0.25 MCG CAP (S0169) PO SCH (07:49)
[2020-06-20] MEDS: VITAMIN D 1,000 INTERNATIONAL UNITS TABLET PO SCH (07:49)
[2020-06-20] MEDS: SUCRALFATE 1 GM TAB PO SCH ×4 (07:49→19:47)
[2020-06-20] MEDS: MEMANTINE 5MG TABLET (NAMENDA) PO SCH ×2 (07:50→19:47)
[2020-06-20] MEDS: DOCUSATE SODIUM 100MG CAPSULE PO SCH ×2 (07:50→19:47)
[2020-06-20] MEDS ORDERED: POLYVINYL ALCOHOL OPHTH SOLN 15 ML(LIQUITEARS) OU PRN ×2 (15:30→15:45)
[2020-06-20] MEDS: dexameTHASONE 4 MG/ML 1ML VIAL (J1100 PER 1MG) IV SCH (17:24)
--- NOTE | 2020-06-20 18:38 | IPNPDOC ---
Text Note Date of Service The patient was seen on 06/20/20. NOTE Subjective: Patient states she feels about the same as yesterday. Complained of dry eyes. No acute overnight events reported. Discussed with nursing staff, who noted patient had near syncopal event while getting to standing position. O2 saturations were not available, poor reading from pulse oximetry. Objective: General: NAD, lying comfortably in bed A/P: 79F with dementia who is COVID positive here for TIA. At home, she had an event where she stared off into space and developed aphasia and left sided weakness. She was worked up for TIA which has been negative. Unable to obtain EEG due to COVID status, but have empirically started on Keppra. Patient should follow up with her neurologist outpatient. Otherwise COVID symptoms started 12 days prior to admission. During her hospitalization, she developed worsening hypoxia 2/2 iatrogenic decompensated CHF. Fluids were stopped and Lasix given with improvement in symptoms and oxygenation. #acute hypoxic respiratory failure - secondary to COVID infection, further complicated with fluid overload - continue supplemental oxygen - PT/OT - supportive care - trend inflammatory markers/acute phase reactants - previously discussed with pulmonology. Patient would be able to go home on 2 to 3L in the daytime and 5 to 6L at night as needed for suspected sleep apnea. Daughter is willing to come up and assist in her care. Otherwise, patient has not yet passed physical therapy to be able to return home. #TIA -Aphasia and left sided weakness -Resolved -MRI, MRA, and US carotids negative. -Echo demonstrated no thrombus -Most likely cause is subtherapeutic INR in the setting of afib and COVID #Question seizure -Daughter who is EMT witnessed event -Subsequently had aphasia and left sided weakness afterwards - previously discussed with daughter about empirically treating with Keppra without EEG. She is agreeable -Follow up outpatient with neurology #Decompensated CHF -CXR suggestive of CHF vs pneumonia -No fever, cough, or leukocytosis. Unlikely pneumonia -was previously On IV fluids, JVD, bibasilar crackles, elevated BNP. More likely fluid overloaded -Discontinued fluids, will restart lasix when renal function improves -EF on 06/13/2020 is 65% #HTN -Blood pressure controlled off of blood pressure medications -Continue to monitor #afib -Rate controlled -Continue with metoprolol -Warfarin held as supratherapeutic -Continue to monitor INR #Hypothyroidism -Continue with levothyroxine #Hyponatremia -Resolved #Anorexia -Poor appetite. On omeprazole, will add on Carafate to see if it would help #DVT ppx -Warfarin held as supratherapeutic Disposition: Pending clinical improvement VS,Fishbone, I+O VS, Fishbone, I+O Laboratory Tests 06/20/20 06:26 Vital Signs Date Time Temp Pulse Resp B/P (MAP) Pulse Ox O2 Delivery O2 Flow Rate FiO2 06/20/20 16:43 97.2 66 20 120/65 (83) 91 HVNI-Vapotherm 25.0 50 I&O- Last 24 Hours up to 6 AM 06/20/20 06:00 Intake Total 980 ml Output Total 900 ml Balance 80 ml BRIANA BARAJAS MD Jun 20, 2020 18:38
[2020-06-20] MEDS: NORTRIPTYLINE 10 MG CAP PO SCH (19:47)
[2020-06-20] MEDS: PRAVASTATIN 20 MG TAB PO SCH (19:47)
[2020-06-21 04:13] VITALS: BP 154/83
[2020-06-21] MEDS: LEVOTHYROXINE 88MCG TABLET (0.088 MG) PO SCH (05:44)
[2020-06-21] MEDS: DOCUSATE SODIUM 100MG CAPSULE PO SCH ×3 (08:07→20:25)
[2020-06-21] MEDS: MEMANTINE 5MG TABLET (NAMENDA) PO SCH ×2 (08:07→20:01)
[2020-06-21] MEDS: VITAMIN D 1,000 INTERNATIONAL UNITS TABLET PO SCH (08:07)
[2020-06-21] MEDS: CALCITRIOL 0.25 MCG CAP (S0169) PO SCH (08:07)
[2020-06-21] MEDS: SUCRALFATE 1 GM TAB PO SCH ×4 (08:07→20:02)
[2020-06-21] MEDS: OMEPRAZOLE 20 MG CAP PO SCH (08:07)
[2020-06-21 08:24] LABS: BASO % 0.5 % (0.0-1.0); HEMATOCRIT 37.3 % (36.0-47.0); HEMOGLOBIN 11.8 g/dl (12.0-15.5); LYMPH # 0.4 10^3/uL (1.5-5.0); LYMPH % 6.1 % (24.0-44.0); MEAN CORPUSCULAR HEMOGLOBIN 28.6 pg (27.0-33.0); MEAN CORPUSCULAR HGB CONC 31.6 g/dl (32.0-36.5); MEAN CORPUSCULAR VOLUME 90.5 fl (80.0-96.0); MONO # 0.2 10^3/uL (0.0-0.8); MONO % 3.6 % (0.0-5.0); NEUTROPHILS # 5.3 10^3/uL (1.5-8.5); NEUTROPHILS % 85.9 % (36.0-66.0); PLATELET COUNT, AUTOMATED 249 10^3/uL (150-450); RED BLOOD COUNT 4.12 10^6/uL (4.00-5.40); WHITE BLOOD COUNT 6.2 10^3/uL (4.0-10.0)
[2020-06-21 08:49] LABS: INR 2.55
[2020-06-21 08:52] LABS: C REACTIVE PROTEIN QUANTITATIV 7.89 MG/DL (0.00-0.30); CALCIUM LEVEL 8.3 MG/DL (8.8-10.2); CREATININE FOR GFR 1.61 MG/DL (0.55-1.30); GLOMERULAR FILTRATION RATE 32.7 (>32)
[2020-06-21 14:00] VITALS: BP 120/94
[2020-06-21] MEDS: dexameTHASONE 4 MG/ML 1ML VIAL (J1100 PER 1MG) IV SCH (17:34)
[2020-06-21] MEDS: WARFARIN SOD 5MG TAB PO SCH (17:34)
[2020-06-21 20:00] VITALS: BP 128/70
[2020-06-21] MEDS: NORTRIPTYLINE 10 MG CAP PO SCH (20:01)
[2020-06-21 20:02] VITALS: BP 128/70
[2020-06-21] MEDS: PRAVASTATIN 20 MG TAB PO SCH (20:02)
[2020-06-22] VITALS: BP 105/63
[2020-06-22 04:00] VITALS: BP 130/77
[2020-06-22] MEDS: LEVOTHYROXINE 88MCG TABLET (0.088 MG) PO SCH (05:46)
[2020-06-22 08:00] VITALS: BP 133/87
[2020-06-22] MEDS: VITAMIN D 1,000 INTERNATIONAL UNITS TABLET PO SCH (08:29)
[2020-06-22] MEDS: SUCRALFATE 1 GM TAB PO SCH ×5 (08:29→20:58)
[2020-06-22] MEDS: DOCUSATE SODIUM 100MG CAPSULE PO SCH ×2 (08:29→20:58)
[2020-06-22] MEDS: OMEPRAZOLE 20 MG CAP PO SCH (08:29)
[2020-06-22] MEDS: MEMANTINE 5MG TABLET (NAMENDA) PO SCH ×2 (08:30→20:58)
[2020-06-22] MEDS: CALCITRIOL 0.25 MCG CAP (S0169) PO SCH (08:30)
[2020-06-22 08:31] LABS: INR 2.21
[2020-06-22 08:48] LABS: C REACTIVE PROTEIN QUANTITATIV 8.11 MG/DL (0.00-0.30)
--- NOTE | 2020-06-22 09:56 | IPNPDOC ---
Text Note Date of Service The patient was seen on 06/21/20. NOTE Subjective: Patient states she feels about the same as yesterday. No acute overnight events reported. Discussed with nursing staff, patient appears marginally improved today. Objective: General: NAD, lying comfortably in bed A/P: 79F with dementia who is COVID positive here for TIA. At home, she had an event where she stared off into space and developed aphasia and left sided weakness. She was worked up for TIA which has been negative. Unable to obtain EEG due to COVID status, but have empirically started on Keppra. Patient should follow up with her neurologist outpatient. Otherwise COVID symptoms started 12 days prior to admission. During her hospitalization, she developed worsening hypoxia 2/2 iatrogenic decompensated CHF. Fluids were stopped and Lasix given with improvement in symptoms and oxygenation. #acute hypoxic respiratory failure - secondary to COVID infection, further complicated with fluid overload - continue supplemental oxygen - PT/OT - supportive care - trend inflammatory markers/acute phase reactants - previously discussed with pulmonology. Patient would be able to go home on 2 to 3L in the daytime and 5 to 6L at night as needed for suspected sleep apnea. #TIA -Aphasia and left sided weakness -Resolved -MRI, MRA, and US carotids negative. -Echo demonstrated no thrombus -Most likely cause is subtherapeutic INR in the setting of afib and COVID #possible seizure -Daughter who is EMT witnessed event -Subsequently had aphasia and left sided weakness afterwards - previously discussed with daughter about empirically treating with Keppra without EEG. She is agreeable -Follow up outpatient with neurology #Decompensated CHF -CXR suggestive of CHF vs pneumonia -No fever, cough, or leukocytosis. Unlikely pneumonia -was previously On IV fluids, JVD, bibasilar crackles, elevated BNP. More likely fluid overloaded -Discontinued fluids, will restart lasix when renal function improves -EF on 06/13/2020 is 65% #HTN -Blood pressure controlled off of blood pressure medications -Continue to monitor #afib -Rate controlled -Continue with metoprolol -Warfarin held as supratherapeutic -Continue to monitor INR #Hypothyroidism -Continue with levothyroxine #Hyponatremia -Resolved #Anorexia -Poor appetite #DVT ppx -Warfarin resumed today - INR therapeutic Disposition: Pending clinical improvement VS,Qing, I+O VS, Fishbone, I+O Vital Signs Date Time Temp Pulse Resp B/P (MAP) Pulse Ox O2 Delivery O2 Flow Rate FiO2 06/22/20 08:00 97.4 77 20 133/87 (102) 92 HVNI-Vapotherm 25.0 80 I&O- Last 24 Hours up to 6 AM 06/22/20 06:00 Intake Total 300 ml Output Total 400 ml Balance -100 ml BRIANA BARAJAS MD Jun 22, 2020 09:56
--- NOTE | 2020-06-22 10:10 | IPNPDOC ---
Text Note Date of Service The patient was seen on 06/22/20. NOTE Subjective: Patient seen at bedside. States she feels much better today. Later day had another near syncopal episode while standing, and was hypotensive. Resolved shortly after once seated. Objective: General: NAD, lying comfortably in bed A/P: 79F with dementia who is COVID positive here for TIA. At home, she had an event where she stared off into space and developed aphasia and left sided weakness. She was worked up for TIA which has been negative. Unable to obtain EEG due to COVID status, but have empirically started on Keppra. Patient should follow up with her neurologist outpatient. Otherwise COVID symptoms started 12 days prior to admission. During her hospitalization, she developed worsening hypoxia 2/2 iatrogenic decompensated CHF. Fluids were stopped and Lasix given with improvement in symptoms and oxygenation. #acute hypoxic respiratory failure - secondary to COVID infection, initially further complicated with fluid overload - continue supplemental oxygen - supportive care - trend inflammatory markers/acute phase reactants - Patient would be able to go home on 2 to 3L in the daytime and 5 to 6L at night as needed for suspected sleep apnea - discussed with pulmonology - encourage activity, proning, PO intake #TIA -Aphasia and left sided weakness -Resolved -MRI, MRA, and US carotids negative. -Echo demonstrated no thrombus -Most likely cause is subtherapeutic INR in the setting of afib and COVID #possible seizure -Daughter who is EMT witnessed event -Subsequently had aphasia and left sided weakness afterwards - previously discussed with daughter about empirically treating with Keppra without EEG. She is agreeable -Follow up outpatient with neurology #Decompensated CHF -CXR suggestive of CHF vs pneumonia -No fever, cough, or leukocytosis. Unlikely pneumonia -was previously On IV fluids-Discontinued fluids, will restart lasix when renal function improves -EF on 06/13/2020 is 65% #HTN -Blood pressure controlled off of blood pressure medications -Continue to monitor #afib -Rate controlled -Continue with metoprolol -Warfarin resumed -Continue to monitor INR #Hypothyroidism -Continue with levothyroxine #Hyponatremia -Resolved #Anorexia -Poor appetite - encouraging PO intake #DVT ppx -Warfarin resumed today - INR therapeutic Disposition: Pending clinical improvement; attempted to contact daughter Swathi - phone number listed is patient's cell phone number ([phone]). VS,Fishbone, I+O VS, Fishbone, I+O Vital Signs Date Time Temp Pulse Resp B/P (MAP) Pulse Ox O2 Delivery O2 Flow Rate FiO2 06/22/20 08:00 97.4 77 20 133/87 (102) 92 HVNI-Vapotherm 25.0 80 I&O- Last 24 Hours up to 6 AM 06/22/20 06:00 Intake Total 300 ml Output Total 400 ml Balance -100 ml BRIANA BARAJAS MD Jun 22, 2020 10:10
[2020-06-22] MEDS: LevoFLOXacin 750 MG TABLET PO SCH (11:42)
[2020-06-22 12:00] VITALS: BP 130/74
[2020-06-22] MEDS: WARFARIN SOD 5MG TAB PO SCH (18:03)
[2020-06-22] MEDS: dexameTHASONE 4 MG/ML 1ML VIAL (J1100 PER 1MG) IV SCH (18:04)
[2020-06-22 20:56] VITALS: BP 132/96
[2020-06-22] MEDS: PRAVASTATIN 20 MG TAB PO SCH (20:58)
[2020-06-22] MEDS: NORTRIPTYLINE 10 MG CAP PO SCH (20:59)
[2020-06-23] VITALS (9 sets, daily range): BP systolic 117–148; BP diastolic 60–80; O2SAT 94
[2020-06-23] MEDS: LEVOTHYROXINE 88MCG TABLET (0.088 MG) PO SCH (06:00)
[2020-06-23 07:10] LABS: HEMATOCRIT 38.1 % (36.0-47.0); HEMOGLOBIN 12.1 g/dl (12.0-15.5); MEAN CORPUSCULAR HEMOGLOBIN 28.7 pg (27.0-33.0); MEAN CORPUSCULAR HGB CONC 31.8 g/dl (32.0-36.5); MEAN CORPUSCULAR VOLUME 90.3 fl (80.0-96.0); PLATELET COUNT, AUTOMATED 243 10^3/uL (150-450); RED BLOOD COUNT 4.22 10^6/uL (4.00-5.40); WHITE BLOOD COUNT 7.8 10^3/uL (4.0-10.0)
[2020-06-23 07:25] LABS: INR 2.05; PROTHROMBIN TIME 23.6 SECONDS (12.5-14.3)
[2020-06-23 07:27] LABS: D-DIMER QUANT 1955.07 ng/ml (<500)
[2020-06-23 07:42] LABS: ALBUMIN 2.1 GM/DL (3.2-5.2); BILIRUBIN,TOTAL 0.4 MG/DL (0.2-1.0); C REACTIVE PROTEIN QUANTITATIV 8.03 MG/DL (0.00-0.30); CALCIUM LEVEL 8.6 MG/DL (8.8-10.2); CREATININE FOR GFR 1.59 MG/DL (0.55-1.30); GLOMERULAR FILTRATION RATE 33.2 (>32); POTASSIUM SERUM 4.2 MEQ/L (3.5-5.1); TOTAL PROTEIN 6.3 GM/DL (6.4-8.2)
[2020-06-23] MEDS: VITAMIN D 1,000 INTERNATIONAL UNITS TABLET PO SCH (08:49)
[2020-06-23] MEDS: CALCITRIOL 0.25 MCG CAP (S0169) PO SCH (08:49)
[2020-06-23] MEDS: SUCRALFATE 1 GM TAB PO SCH ×4 (08:49→20:10)
[2020-06-23] MEDS: MEMANTINE 5MG TABLET (NAMENDA) PO SCH ×2 (08:49→20:11)
[2020-06-23] MEDS: OMEPRAZOLE 20 MG CAP PO SCH (08:49)
[2020-06-23] MEDS: DOCUSATE SODIUM 100MG CAPSULE PO SCH ×2 (08:50→20:10)
[2020-06-23] MEDS: WARFARIN SOD 5MG TAB PO SCH (17:09)
[2020-06-23] MEDS: dexameTHASONE 4 MG/ML 1ML VIAL (J1100 PER 1MG) IV SCH (17:09)
[2020-06-23] MEDS: PRAVASTATIN 20 MG TAB PO SCH (20:10)
[2020-06-23] MEDS: NORTRIPTYLINE 10 MG CAP PO SCH (20:10)
--- NOTE | 2020-06-23 23:37 | REPVR ---
PROCEDURE INFORMATION: Exam: CT Head Without Contrast Exam date and time: 06/23/2020 10:41 PM Age: 79 years old Clinical indication: Other: CVA symptoms TECHNIQUE: Imaging protocol: Computed tomography of the head without contrast. Radiation optimization: All CT scans at this facility use at least one of these dose optimization techniques: automated exposure control; mA and/or kV adjustment per patient size (includes targeted exams where dose is matched to clinical indication); or iterative reconstruction. COMPARISON: CT Head without contrast 06/13/2020 3:36 PM FINDINGS: Brain: There is minimal patchy low attenuation of deep white matter. There is slight prominence of the peripheral sulci for age. Cerebral ventricles: There is slight prominence of the central ventricular system for age. Bones/joints: Unremarkable. No acute fracture. Paranasal sinuses: Visualized sinuses are unremarkable. No fluid levels. Mastoid air cells: Visualized mastoid air cells are well aerated. Soft tissues: Unremarkable. IMPRESSION: Minimal chronic ischemic white matter change and atrophy for age which is similar to 06/13/2020. No acute interval intracranial process is identified. Electronically signed by: Jamie Burrell On 06/23/2020 23:36:57 PM
[2020-06-24] VITALS (8 sets, daily range): BP systolic 108–132; BP diastolic 59–74; O2SAT 91
[2020-06-24 00:16] LABS: HEMATOCRIT 37.8 % (36.0-47.0); INR 2.22; MEAN CORPUSCULAR HEMOGLOBIN 28.8 pg (27.0-33.0); MEAN CORPUSCULAR HGB CONC 31.7 g/dl (32.0-36.5); MEAN CORPUSCULAR VOLUME 90.6 fl (80.0-96.0); PLATELET COUNT, AUTOMATED 250 10^3/uL (150-450); PROTHROMBIN TIME 25.1 SECONDS (12.5-14.3); RED BLOOD COUNT 4.17 10^6/uL (4.00-5.40); WHITE BLOOD COUNT 9.2 10^3/uL (4.0-10.0)
[2020-06-24 00:17] LABS: PARTIAL THROMBOPLASTIN TIME 41.6 SECONDS (24.2-38.5)
--- NOTE | 2020-06-24 00:17 | IPNPDOC ---
Date Seen The patient was seen on 06/24/20. Progress Note INTERIM PROGRESS NOTE: I was called by nursing around 2230 regarding their concern for acute stroke like symptoms for this patient. Nursing notes that patient was unable to make sentences, and was showing some facial droop and right-sided weakness. Just 1 hour prior she had no symptoms. On my exam, I found that the patient had right upper and right lower extremity weakness, aphasia, and right facial droop. Vitals were found to be stable at that time. I ordered a stat head CT to be done immediately. Reviewing the options, I see that the patient was admitted with TIA and is not a TPA candidate due to her having been on Coumadin for atrial fibrillation. I note that her INR was supratherapeutic for several days and Coumadin was held but recently it was restarted. Just prior to the patient heading down for CT, her symptoms resolved. I think that this was likely a TIA. CT HEAD: FINDINGS: Brain: There is minimal patchy low attenuation of deep white matter. There is slight prominence of the peripheral sulci for age. Cerebral ventricles: There is slight prominence of the central ventricular system for age. Bones/joints: Unremarkable. No acute fracture. Paranasal sinuses: Visualized sinuses are unremarkable. No fluid levels. Mastoid air cells: Visualized mastoid air cells are well aerated. Soft tissues: Unremarkable. IMPRESSION: Minimal chronic ischemic white matter change and atrophy for age which is similar to 06/13/2020. No acute interval intracranial process is identified. I will not change her management at this time. I have checked another PT/PTT/INR as well as CBC, BMP which are pending. The patient continues to be DNR/DNI. VS, I&O, 24H, Fishbone Vital Signs/I&O Vital Signs Date Time Temp Pulse Resp B/P (MAP) Pulse Ox O2 Delivery O2 Flow Rate FiO2 06/24/20 00:00 75 20 125/69 (87) 94 HVNI-Vapotherm 25.0 80 06/23/20 20:11 97.0 I&O- Last 24 Hours up to 6 AM0 06/24/20 06:00 Intake Total 960 ml Output Total 440 ml Balance 520 ml Laboratory Data 24H LABS Laboratory Tests 2 06/23/20 06:55: Nucleated Red Blood Cells % (auto) 0.0, Prothrombin Time 23.6H, Prothromb Time International Ratio 2.05, Fibrinogen 600H, D-Dimer, Quantitative 1955.07H, Anion Gap 7L, Glomerular Filtration Rate 33.2, Calcium Level 8.6L, Ferritin 1191H, Total Bilirubin 0.4, Aspartate Amino Transf (AST/SGOT) 27, Alanine Aminotransferase (ALT/SGPT) 13, Alkaline Phosphatase 72, C-Reactive Protein, Quantitative 8.03H, Total Protein 6.3L, Albumin 2.1L, Albumin/Globulin Ratio 0.5L 06/23/20 22:39: Bedside Glucose (Misc Panel) 143H 06/23/20 23:43: CBC/BMP Laboratory Tests 06/23/20 06:55 Microbiology Microbiology 06/14/20 Blood Culture - Final, Complete NO GROWTH AFTER 5 DAYS 06/14/20 Blood Culture - Final, Complete NO GROWTH AFTER 5 DAYS GME ATTESTATION ATTENDING NOTE Family Medicine Attending Note: I was present on site to supervise Rj Nieto DO (PGY-3). We discussed the history and exam. I confirmed the stewart elements during my [id number] encounter with the patient. We conferred on the assessment and plan; I agree with the note as documented. (plastering contractor) RJ NIETO MD Jun 24, 2020 00:17 Jairon Duncan MD Jun 24, 2020 03:10
[2020-06-24 00:33] LABS: CALCIUM LEVEL 9.1 MG/DL (8.8-10.2); CREATININE FOR GFR 1.68 MG/DL (0.55-1.30); GLOMERULAR FILTRATION RATE 31.1 (>32); POTASSIUM SERUM 4.4 MEQ/L (3.5-5.1)
[2020-06-24] MEDS: LEVOTHYROXINE 88MCG TABLET (0.088 MG) PO SCH (04:57)
[2020-06-24] MEDS: LevoFLOXacin 750 MG TABLET PO SCH (04:57)
[2020-06-24 07:26] LABS: HEMOGLOBIN 11.9 g/dl (12.0-15.5); MEAN CORPUSCULAR HEMOGLOBIN 29.3 pg (27.0-33.0); MEAN CORPUSCULAR HGB CONC 32.2 g/dl (32.0-36.5); MEAN CORPUSCULAR VOLUME 91.1 fl (80.0-96.0); PLATELET COUNT, AUTOMATED 233 10^3/uL (150-450); RED BLOOD COUNT 4.06 10^6/uL (4.00-5.40); WHITE BLOOD COUNT 8.2 10^3/uL (4.0-10.0)
[2020-06-24 07:36] LABS: INR 2.26; PROTHROMBIN TIME 25.5 SECONDS (12.5-14.3)
[2020-06-24 07:38] LABS: D-DIMER QUANT 2466.76 ng/ml (<500)
[2020-06-24 07:45] LABS: BILIRUBIN,TOTAL 0.4 MG/DL (0.2-1.0); C REACTIVE PROTEIN QUANTITATIV 6.68 MG/DL (0.00-0.30); CALCIUM LEVEL 8.6 MG/DL (8.8-10.2); CREATININE FOR GFR 1.64 MG/DL (0.55-1.30); TOTAL PROTEIN 6.1 GM/DL (6.4-8.2)
[2020-06-24] MEDS: DOCUSATE SODIUM 100MG CAPSULE PO SCH ×2 (08:21→20:25)
[2020-06-24] MEDS: MEMANTINE 5MG TABLET (NAMENDA) PO SCH ×2 (08:21→20:25)
[2020-06-24] MEDS: OMEPRAZOLE 20 MG CAP PO SCH (08:21)
[2020-06-24] MEDS: SUCRALFATE 1 GM TAB PO SCH ×4 (08:21→20:25)
[2020-06-24] MEDS: CALCITRIOL 0.25 MCG CAP (S0169) PO SCH (08:21)
[2020-06-24] MEDS: VITAMIN D 1,000 INTERNATIONAL UNITS TABLET PO SCH (08:22)
--- NOTE | 2020-06-24 10:41 | IPNPDOC ---
Text Note Date of Service The patient was seen on 06/23/20. NOTE Subjective: Patient seen at bedside. She feels much better today. Her appetite has improved. No new medical complaints. Objective: General: NAD, lying comfortably in bed A/P: 79F with dementia who is COVID positive here for TIA. At home, she had an event where she stared off into space and developed aphasia and left sided weakness. She was worked up for TIA which has been negative. Unable to obtain EEG due to COVID status, but have empirically started on Keppra. Patient should follow up with her neurologist outpatient. Otherwise COVID symptoms started 12 days prior to admission. During her hospitalization, she developed worsening hypoxia 2/2 iatrogenic decompensated CHF. Fluids were stopped and Lasix given with improvement in symptoms and oxygenation. #acute hypoxic respiratory failure - secondary to COVID infection, initially further complicated with fluid ov erload - continue supplemental oxygen - supportive care - trend inflammatory markers/acute phase reactants - Patient would be able to go home on 2 to 3L in the daytime and 5 to 6L at night as needed for suspected sleep apnea - discussed with pulmonology - encourage activity, proning, PO intake #TIA -Aphasia and left sided weakness -Resolved -MRI, MRA, and US carotids negative. -Echo demonstrated no thrombus #possible seizure -Daughter who is EMT witnessed event -Subsequently had aphasia and left sided weakness afterwards - previously discussed with daughter about empirically treating with Keppra without EEG. She is agreeable -Follow up outpatient with neurology #Decompensated CHF -CXR suggestive of CHF vs pneumonia -No fever, cough, or leukocytosis. Unlikely pneumonia -was previously On IV fluids-Discontinued fluids, will restart lasix when renal function improves -EF on 06/13/2020 is 65% #HTN -Blood pressure controlled off of blood pressure medications -Continue to monitor #afib -Rate controlled -Continue with metoprolol -Warfarin resumed -Continue to monitor INR #Hypothyroidism -Continue with levothyroxine #Hyponatremia -Resolved #Anorexia -Poor appetite - encouraging PO intake #DVT ppx -Warfarin resumed today - INR therapeutic Disposition: Pending clinical improvement; attempted to contact daughter Swathi - phone number listed is patient's cell phone number ([phone]). VS,Fishbone, I+O VS, Fishbone, I+O Laboratory Tests 06/23/20 23:43 12/12/20 06:46 Vital Signs Date Time Temp Pulse Resp B/P (MAP) Pulse Ox O2 Delivery O2 Flow Rate FiO2 06/24/20 08:48 91 Nasal Cannula 25.0 75 06/24/20 08:00 96.9 62 21 131/74 (93) I&O- Last 24 Hours up to 6 AM 06/24/20 05:59 Intake Total 1020 ml Output Total 440 ml Balance 580 ml BRIANA BARAJAS MD Jun 24, 2020 10:41
--- NOTE | 2020-06-24 10:43 | IPNPDOC ---
Text Note Date of Service The patient was seen on 06/24/20. NOTE Subjective: Patient seen at bedside. Continues to feel better. Appetite continues to improve. Overnight events significant for symptoms suspicious for CVA. CT head obtained with no acute findings. Later in the day she had another near syncopal event, where she became significantly hypoxic. Quickly improved when transitioned back to supine position. Objective: General: NAD, lying comfortably in bed eating breakfast A/P: 79F with dementia who is COVID positive here for TIA. At home, she had an event where she stared off into space and developed aphasia and left sided weakness. She was worked up for TIA which has been negative. Unable to obtain EEG due to COVID status, but have empirically started on Keppra. Patient should follow up with her neurologist outpatient. Otherwise COVID symptoms started 12 days prior to admission. During her hospitalization, she developed worsening hypoxia 2/2 iatrogenic decompensated CHF. Fluids were stopped and Lasix given with impro vement in symptoms and oxygenation. #acute hypoxic respiratory failure - secondary to COVID infection, initially further complicated with fluid overload - continue supplemental oxygen - still having episodes of severe hypoxemia / dyspnea on exertion - supportive care - trend inflammatory markers/acute phase reactants - Patient would be able to go home on 2 to 3L in the daytime and 5 to 6L at [facility] as needed for suspected sleep apnea - discussed with pulmonology - encourage activity, proning, PO intake #TIA - repeat CT head obtained last night for concerns of CVA/TIA - no acute findings -MRI, MRA, and US carotids negative. -Echo demonstrated no thrombus #possible seizure -Daughter who is EMT witnessed event -Subsequently had aphasia and left sided weakness afterwards - spontaneously res olved -Follow up outpatient with neurology - nursing noted that on discussion with her daughter she possibly was previously using Keppra #Decompensated CHF -CXR suggestive of CHF vs pneumonia -No fever, cough, or leukocytosis. Unlikely pneumonia -was previously On IV fluids-Discontinued fluids, will restart lasix when renal function improves -EF on 06/13/2020 is 65% #HTN -Blood pressure controlled off of blood pressure medications -Continue to monitor #afib -Rate controlled -Continue with metoprolol -Warfarin resumed -Continue to monitor INR #Hypothyroidism -Continue with levothyroxine #Hyponatremia -Resolved #Anorexia -Poor appetite - encouraging PO intake #DVT ppx -Warfarin resumed today - INR therapeutic Disposition: Pending clinical improvement; attempted to contact daughter Swathi - phone number listed is patient's cell phone number ([phone]). VS,Fishbone, I+O VS, Fishbone, I+O Laboratory Tests 06/23/20 23:43 06/24/20 06:46 Vital Signs Date Time Temp Pulse Resp B/P (MAP) Pulse Ox O2 Delivery O2 Flow Rate FiO2 06/24/20 08:48 91 Nasal Cannula 25.0 75 06/24/20 08:00 96.9 62 21 131/74 (93) I&O- Last 24 Hours up to 6 AM 06/24/20 05:59 Intake Total 1020 ml Output Total 440 ml Balance 580 ml BRIANA BARAJAS MD Jun 24, 2020 10:43
[2020-06-24] MEDS: WARFARIN SOD 5MG TAB PO SCH (17:42)
[2020-06-24] MEDS: dexameTHASONE 4 MG/ML 1ML VIAL (J1100 PER 1MG) IV SCH (17:42)
[2020-06-24] MEDS: PRAVASTATIN 20 MG TAB PO SCH (20:25)
[2020-06-24] MEDS: NORTRIPTYLINE 10 MG CAP PO SCH (20:25)
[2020-06-25] VITALS (8 sets, daily range): BP systolic 112–134; BP diastolic 58–76; O2SAT 93–94
[2020-06-25] MEDS: LEVOTHYROXINE 88MCG TABLET (0.088 MG) PO SCH (05:10)
[2020-06-25 07:20] LABS: HEMATOCRIT 36.6 % (36.0-47.0); HEMOGLOBIN 11.6 g/dl (12.0-15.5); MEAN CORPUSCULAR HGB CONC 31.7 g/dl (32.0-36.5); MEAN CORPUSCULAR VOLUME 91.5 fl (80.0-96.0); PLATELET COUNT, AUTOMATED 218 10^3/uL (150-450); WHITE BLOOD COUNT 7.9 10^3/uL (4.0-10.0)
[2020-06-25] MEDS: SUCRALFATE 1 GM TAB PO SCH ×4 (07:30→19:20)
[2020-06-25 07:50] LABS: D-DIMER QUANT 2224.93 ng/ml (<500)
[2020-06-25 07:51] LABS: INR 2.02; PROTHROMBIN TIME 23.3 SECONDS (12.5-14.3)
[2020-06-25 07:56] LABS: ALBUMIN 2.1 GM/DL (3.2-5.2); BILIRUBIN,TOTAL 0.4 MG/DL (0.2-1.0); C REACTIVE PROTEIN QUANTITATIV 4.95 MG/DL (0.00-0.30); CREATININE FOR GFR 1.71 MG/DL (0.55-1.30); GLOMERULAR FILTRATION RATE 30.5 (>32); POTASSIUM SERUM 4.2 MEQ/L (3.5-5.1); TOTAL PROTEIN 6.2 GM/DL (6.4-8.2)
[2020-06-25] MEDS: MEMANTINE 5MG TABLET (NAMENDA) PO SCH ×2 (08:48→20:49)
[2020-06-25] MEDS: VITAMIN D 1,000 INTERNATIONAL UNITS TABLET PO SCH (08:48)
[2020-06-25] MEDS: CALCITRIOL 0.25 MCG CAP (S0169) PO SCH (08:48)
[2020-06-25] MEDS: OMEPRAZOLE 20 MG CAP PO SCH (08:48)
[2020-06-25] MEDS: DOCUSATE SODIUM 100MG CAPSULE PO SCH ×2 (08:48→20:49)
--- NOTE | 2020-06-25 13:57 | IPNPDOC ---
Text Note Date of Service The patient was seen on 06/25/20. NOTE Subjective: Patient seen at bedside. Not much change from yesterday. Still desaturates significantly. Objective: General: NAD, lying comfortably in bed eating breakfast A/P: 79F with dementia who is COVID positive here for TIA. At home, she had an event where she stared off into space and developed aphasia and left sided weakness. She was worked up for TIA which has been negative. Unable to obtain EEG due to COVID status, but have empirically started on Keppra. Patient should follow up with her neurologist outpatient. Otherwise COVID symptoms started 12 days prior to admission. During her hospitalization, she developed worsening hypoxia 2/2 iatrogenic decompensated CHF. Fluids were stopped and Lasix given with improvement in symptoms and oxygenation. #acute hypoxic respiratory failure - secondary to COVID infection, initially further complicated with fluid over load - continue supplemental oxygen - still having episodes of severe hypoxemia / dyspnea on exertion - supportive care - trend inflammatory markers/acute phase reactants - Patient would be able to go home on 2 to 3L in the daytime and 5 to 6L at night as needed for suspected sleep apnea - discussed with pulmonology - encourage activity, proning, PO intake #TIA - repeat CT head obtained last night for concerns of CVA/TIA - no acute findings -MRI, MRA, and US carotids negative. -Echo demonstrated no thrombus #possible seizure -Daughter who is EMT witnessed event -Subsequently had aphasia and left sided weakness afterwards - spontaneously resolved -Follow up outpatient with neurology - nursing noted that on discussion with her daughter she possibly was previously using Keppra #Decompensated CHF -CXR suggestive of CHF vs pneumonia -No fever, cough, or leukocytosis. Unlikely pneumonia -was previously On IV fluids-Discontinued fluids, will restart lasix when renal function improves -EF on 06/13/2020 is 65% #HTN -Blood pressure controlled off of blood pressure medications -Continue to monitor #afib -Rate controlled -Continue with metoprolol -Warfarin resumed -Continue to monitor INR #Hypothyroidism -Continue with levothyroxine #Hyponatremia -Resolved #Anorexia -Poor appetite - encouraging PO intake #DVT ppx -Warfarin resumed today - INR therapeutic Disposition: Pending clinical improvement; attempted to contact daughter Swathi - phone number listed is patient's cell phone number ([phone]). VS,Fishbone, I+O VS, Fishbone, I+O Laboratory Tests 06/25/20 06:55 Vital Signs Date Time Temp Pulse Resp B/P (MAP) Pulse Ox O2 Delivery O2 Flow Rate FiO2 06/25/20 12:00 25.0 55 06/25/20 12:00 96.4 72 20 128/66 (86) 94 HVNI-Vapotherm I&O- Last 24 Hours up to 6 AM 06/25/20 06:00 Intake Total 600 ml Output Total 700 ml Balance -100 ml BRIANA BARAJAS MD Jun 25, 2020 13:57
[2020-06-25] MEDS: WARFARIN SOD 5MG TAB PO SCH (16:15)
[2020-06-25] MEDS ORDERED: WARFARIN SOD 2.5MG TAB PO ONE (17:00)
[2020-06-25] MEDS: dexameTHASONE 4 MG/ML 1ML VIAL (J1100 PER 1MG) IV SCH (17:10)
[2020-06-25] MEDS: NORTRIPTYLINE 10 MG CAP PO SCH (20:49)
[2020-06-25] MEDS: PRAVASTATIN 20 MG TAB PO SCH (20:49)
[2020-06-26] VITALS (7 sets, daily range): BP systolic 114–137; BP diastolic 63–82; O2SAT 94
[2020-06-26] MEDS: LevoFLOXacin 750 MG TABLET PO SCH ×2 (06:00→07:09)
[2020-06-26] MEDS: LEVOTHYROXINE 88MCG TABLET (0.088 MG) PO SCH (07:09)
[2020-06-26 07:12] LABS: HEMOGLOBIN 11.8 g/dl (12.0-15.5); MEAN CORPUSCULAR HEMOGLOBIN 29.9 pg (27.0-33.0); MEAN CORPUSCULAR HGB CONC 32.8 g/dl (32.0-36.5); MEAN CORPUSCULAR VOLUME 91.1 fl (80.0-96.0); PLATELET COUNT, AUTOMATED 217 10^3/uL (150-450); RED BLOOD COUNT 3.95 10^6/uL (4.00-5.40); WHITE BLOOD COUNT 8.4 10^3/uL (4.0-10.0)
[2020-06-26 07:22] LABS: INR 2.1
[2020-06-26 07:25] LABS: D-DIMER QUANT 1916.07 ng/ml (<500)
[2020-06-26] MEDS: SUCRALFATE 1 GM TAB PO SCH ×4 (07:30→21:00)
[2020-06-26 07:45] LABS: ALBUMIN 2.1 GM/DL (3.2-5.2); BILIRUBIN,TOTAL 0.4 MG/DL (0.2-1.0); C REACTIVE PROTEIN QUANTITATIV 3.02 MG/DL (0.00-0.30); CALCIUM LEVEL 8.5 MG/DL (8.8-10.2); CREATININE FOR GFR 1.72 MG/DL (0.55-1.30); GLOMERULAR FILTRATION RATE 30.3 (>32); POTASSIUM SERUM 4.3 MEQ/L (3.5-5.1)
[2020-06-26] MEDS: DOCUSATE SODIUM 100MG CAPSULE PO SCH ×2 (08:41→21:04)
[2020-06-26] MEDS: MEMANTINE 5MG TABLET (NAMENDA) PO SCH ×2 (08:41→21:04)
[2020-06-26] MEDS: OMEPRAZOLE 20 MG CAP PO SCH (08:41)
[2020-06-26] MEDS: CALCITRIOL 0.25 MCG CAP (S0169) PO SCH (08:41)
[2020-06-26] MEDS: VITAMIN D 1,000 INTERNATIONAL UNITS TABLET PO SCH (08:41)
--- NOTE | 2020-06-26 12:22 | IPNPDOC ---
Text Note Date of Service The patient was seen on 06/26/20. NOTE Subjective: Patient seen at bedside. Not much change from yesterday. Still desaturates significantly with minimal exertion. Objective: General: NAD, lying comfortably in bed, in good spirits A/P: 79F with dementia who is COVID positive here for TIA. At home, she had an event where she stared off into space and developed aphasia and left sided weakness. She was worked up for TIA which has been negative. Unable to obtain EEG due to COVID status, but have empirically started on Keppra. Patient should follow up with her neurologist outpatient. Otherwise COVID symptoms started 12 days prior to admission. During her hospitalization, she developed worsening hypoxia 2/2 iatrogenic decompensated CHF. Fluids were stopped and Lasix given with improvement in symptoms and oxygenation. #acute hypoxic respiratory failure - secondary to COVID infection, initially further complicated with fluid overload - continue supplemental oxygen - still having episodes of severe hypoxemia / dyspnea on exertion - supportive care - trend inflammatory markers/acute phase reactants - Patient would be able to go home on 2 to 3L in the daytime and 5 to 6L at night as needed for suspected sleep apnea - discussed with pulmonology #TIA - repeat CT head obtained last night for concerns of CVA/TIA - no acute findings -MRI, MRA, and US carotids negative. -Echo demonstrated no thrombus #possible seizure -Daughter who is EMT witnessed event -Subsequently had aphasia and left sided weakness afterwards - spontaneously resolved -Follow up outpatient with neurology - nursing noted that on discussion with her daughter she possibly was previously using Keppra #Decompensated CHF -CXR suggestive of CHF vs pneumonia -No fever, cough, or leukocytosis. Unlikely pneumonia -EF on 06/13/2020 is 65% #HTN -Blood pressure controlled off of blood pressure medications -Continue to monitor #afib -Rate controlled -Continue with metoprolol -Warfarin resumed -Continue to monitor INR #Hypothyroidism -Continue with levothyroxine #Hyponatremia -Resolved #Anorexia -Poor appetite - encouraging PO intake #DVT ppx -Warfarin - INR therapeutic Disposition: Pending clinical improvement, try physical therapy to encourage some mobility; attempted to contact daughter Swathi - phone number listed is demetra walker's cell phone number ([phone]). VS,Fishbone, I+O VS, Fishbone, I+O Laboratory Tests 06/26/20 06:34 Vital Signs Date Time Temp Pulse Resp B/P (MAP) Pulse Ox O2 Delivery O2 Flow Rate FiO2 06/26/20 12:00 25.0 55 06/26/20 12:00 96.4 75 19 137/68 (54) 91 HVNI-Vapotherm I&O- Last 24 Hours up to 6 AM 06/26/20 05:59 Intake Total 480 ml Output Total 950 ml Balance -470 ml BRIANA BARAJAS MD Jun 26, 2020 12:22
[2020-06-26] MEDS: dexameTHASONE 4 MG/ML 1ML VIAL (J1100 PER 1MG) IV SCH (17:07)
[2020-06-26] MEDS: WARFARIN SOD 5MG TAB PO SCH (17:07)
[2020-06-26] MEDS: NORTRIPTYLINE 10 MG CAP PO SCH (21:04)
[2020-06-26] MEDS: PRAVASTATIN 20 MG TAB PO SCH (21:04)
[2020-06-27] VITALS: BP 116/61
[2020-06-27 04:00] VITALS: BP_SYST 120; BP_SYST 129; BP_DIAS 75
[2020-06-27 06:20] LABS: HEMATOCRIT 37.7 % (36.0-47.0); HEMOGLOBIN 11.7 g/dl (12.0-15.5); MEAN CORPUSCULAR HEMOGLOBIN 28.4 pg (27.0-33.0); MEAN CORPUSCULAR VOLUME 91.5 fl (80.0-96.0); PLATELET COUNT, AUTOMATED 223 10^3/uL (150-450); RED BLOOD COUNT 4.12 10^6/uL (4.00-5.40); WHITE BLOOD COUNT 8.8 10^3/uL (4.0-10.0)
[2020-06-27] MEDS: LEVOTHYROXINE 88MCG TABLET (0.088 MG) PO SCH (06:30)
[2020-06-27 06:46] LABS: INR 2.25; PROTHROMBIN TIME 25.4 SECONDS (12.5-14.3)
[2020-06-27 06:49] LABS: ALBUMIN 2.1 GM/DL (3.2-5.2); BILIRUBIN,TOTAL 0.4 MG/DL (0.2-1.0); C REACTIVE PROTEIN QUANTITATIV 1.9 MG/DL (0.00-0.30); CALCIUM LEVEL 8.2 MG/DL (8.8-10.2); CREATININE FOR GFR 1.65 MG/DL (0.55-1.30); GLOMERULAR FILTRATION RATE 31.8 (>32); POTASSIUM SERUM 4.4 MEQ/L (3.5-5.1)
[2020-06-27 08:00] VITALS: BP 127/73
[2020-06-27] MEDS: CALCITRIOL 0.25 MCG CAP (S0169) PO SCH (09:00)
[2020-06-27] MEDS: MEMANTINE 5MG TABLET (NAMENDA) PO SCH ×2 (09:00→21:22)
[2020-06-27] MEDS: OMEPRAZOLE 20 MG CAP PO SCH (09:00)
[2020-06-27] MEDS: DOCUSATE SODIUM 100MG CAPSULE PO SCH ×2 (09:01→21:23)
[2020-06-27] MEDS: SUCRALFATE 1 GM TAB PO SCH ×4 (09:01→21:00)
[2020-06-27] MEDS: VITAMIN D 1,000 INTERNATIONAL UNITS TABLET PO SCH (09:01)
[2020-06-27 12:00] VITALS: BP 125/68
--- NOTE | 2020-06-27 13:11 | IPNPDOC ---
Text Note Date of Service The patient was seen on 06/27/20. NOTE Subjective: Patient is 79-year-old female with a PMHx of HTN, A. fib (s/p Cardioversion x3, on Coumadin), Hypothyroidism, CKD3, Iron deficiency anemia, Hx of C. diff, Hx of Early Alzheimers who presented to the ER with complaints of left-sided weakness. Patient was in the emergency room on 06/12 for persistent diarrhea and was sent home after she had stable vital signs and lab work. Patient presented again to the emergency room after her daughter who was visiting her had noticed left- sided weakness. Patient denies any specific left-sided weakness. Patient reports that she felt generalized weakness. Upon arrival to emergency room, patient did not have any weakness. No tPA was administered because she had full resolution of her symptoms upon arrival to ER. Patient was seen and examined at the bedside. Currently patient denies any chest pain, shortness breath or palpitations. Denies any nausea, vomiting, abdominal pain or diarrhea. Objective: Vitals (See below) General: Lying in bed, no acute distress, comfortable, Awake / Alert HEENT: NC, AT CVS: +S1S2 Lungs: Fair air entry b/l, no appreciable wheezing, rhonchi or rales Abdomen: Soft, ND, NT Extremities: No evidence of edema, - Calf tenderness Assessment and plan: Acute hypoxic respiratory failure - possibly 2/2 COVID, possibly 2/2 fluid overload - Patient continues to experience hypoxia, however, has been improving slowly - Patient's over the last requirement has been slowly decreasing - Inflammatory markers improving - c/w Dexamethasone COVID positive - c/w incentive spirometry / acapella - c/w supportive care and contact/droplet precautions - c/w Levaquin (Day #2); will repeat PCT; if negative will discontinue Reported left sided weakness - possibly 2/2 TIA, unlikely 2/2 CVA - Patient presented to the ER with reported left-sided weakness as per her daughter - Physical does not reveal any focal deficits - Patient is fully oriented to person, place and time - INR noted to be subtherapeutic - CT head 06/13: No acute intracranial abnormality. Vascular calcification and mild volume loss again noted. - Imaging reviewed / ECHO without thrombus - c/w Coumadin - c/w ASA / Atorvastatin Possible Seizure - Previously was on Keppra - Will have outpatient follow up with Neurology HTN - BP well controlled - s/p BP medications A. fib - Currently patient is rate controlled - INR therapeutic - s/p Metoprolol with hold parameters - c/w full anticoagulation with Coumadin Thrombocytopenia - No evidence of bleeding Hypothyroidism - c/w Levothyroxine s/p Hyponatremia (mild) - Possibly 2/2 volume loss 2/2 recent diarrhea CKD3 - Creatinine appears to be at baseline Dementia - c/w Namenda Iron deficiency anemia - Hg at baseline Hx of C. Diff Hx of Early Alzheimers GERD - c/w Omeprazole and Carafate DVT prophylaxis - c/w full anticoagulation with Coumadin VS,Fishbone, I+O VS, Fishbone, I+O Laboratory Tests 06/27/20 05:30 Vital Signs Date Time Temp Pulse Resp B/P (MAP) Pulse Ox O2 Delivery O2 Flow Rate FiO2 06/27/20 12:00 97.6 80 18 125/68 (87) 94 High Flow Cannula 6.0 06/26/20 16:00 50 I&O- Last 24 Hours up to 6 AM 06/27/20 06:00 Intake Total 600 ml Output Total 750 ml Balance -150 ml CARLINE VELASQUEZ MD Jun 27, 2020 13:11
[2020-06-27] MEDS: dexameTHASONE 4 MG/ML 1ML VIAL (J1100 PER 1MG) IV SCH (18:24)
[2020-06-27] MEDS: levETIRAcetam INJection 500 MG in D5W MINI-BAG PLUS 100 ML IV SCH (18:24)
[2020-06-27] MEDS: WARFARIN SOD 5MG TAB PO SCH (18:24)
[2020-06-27 20:00] VITALS: BP 125/70
[2020-06-27] MEDS: NORTRIPTYLINE 10 MG CAP PO SCH (21:21)
[2020-06-27] MEDS: PRAVASTATIN 20 MG TAB PO SCH (21:22)
[2020-06-28] VITALS: BP 118/58
[2020-06-28 04:00] VITALS: BP 128/69
[2020-06-28] MEDS: LEVOTHYROXINE 88MCG TABLET (0.088 MG) PO SCH (04:59)
[2020-06-28] MEDS: LevoFLOXacin 750 MG TABLET PO SCH (04:59)
[2020-06-28] MEDS: levETIRAcetam INJection 500 MG in D5W MINI-BAG PLUS 100 ML IV SCH ×2 (05:00→17:29)
[2020-06-28 06:09] LABS: HEMATOCRIT 36.9 % (36.0-47.0); HEMOGLOBIN 11.8 g/dl (12.0-15.5); MEAN CORPUSCULAR HEMOGLOBIN 29.6 pg (27.0-33.0); MEAN CORPUSCULAR VOLUME 92.7 fl (80.0-96.0); PLATELET COUNT, AUTOMATED 211 10^3/uL (150-450); RED BLOOD COUNT 3.98 10^6/uL (4.00-5.40); WHITE BLOOD COUNT 8.2 10^3/uL (4.0-10.0)
[2020-06-28 06:37] LABS: ALBUMIN 2.2 GM/DL (3.2-5.2); BILIRUBIN,TOTAL 0.4 MG/DL (0.2-1.0); CALCIUM LEVEL 8.4 MG/DL (8.8-10.2); CREATININE FOR GFR 1.67 MG/DL (0.55-1.30); GLOMERULAR FILTRATION RATE 31.3 (>32); TOTAL PROTEIN 6.2 GM/DL (6.4-8.2)
[2020-06-28] MEDS: SUCRALFATE 1 GM TAB PO SCH ×4 (07:30→19:33)
[2020-06-28 08:12] LABS: C REACTIVE PROTEIN QUANTITATIV 1.54 MG/DL (0.00-0.30)
[2020-06-28] MEDS: OMEPRAZOLE 20 MG CAP PO SCH (08:56)
[2020-06-28] MEDS: DOCUSATE SODIUM 100MG CAPSULE PO SCH ×2 (08:56→20:26)
[2020-06-28] MEDS: CALCITRIOL 0.25 MCG CAP (S0169) PO SCH (08:56)
[2020-06-28] MEDS: VITAMIN D 1,000 INTERNATIONAL UNITS TABLET PO SCH (08:57)
[2020-06-28] MEDS: MEMANTINE 5MG TABLET (NAMENDA) PO SCH ×2 (08:57→20:27)
[2020-06-28 08:58] VITALS: BP 131/73
--- NOTE | 2020-06-28 11:48 | IPNPDOC ---
Text Note Date of Service The patient was seen on 06/28/20. NOTE Subjective: Patient is 79-year-old female with a PMHx of HTN, A. fib (s/p Cardioversion x3, on Coumadin), Hypothyroidism, CKD3, Iron deficiency anemia, Hx of C. diff, Hx of Early Alzheimers who presented to the ER with complaints of left-sided weakness. Patient was in the emergency room on 06/12 for persistent diarrhea and was sent home after she had stable vital signs and lab work. Patient presented again to the emergency room after her daughter who was visiting her had noticed left- sided weakness. Patient denies any specific left-sided weakness. Patient reports that she felt generalized weakness. Upon arrival to emergency room, patient did not have any weakness. No tPA was administered because she had full resolution of her symptoms upon arrival to ER. Yesterday afternoon. Patient had a seizure episode which involved the left side of her body. It appeared to be a tonic-clonic episode and lasted for approximately 2 minutes. Patient was seen and examined at the bedside. Currently patient denies any nausea, vomiting, chest pain, any significant shortness of breath or palpitations. Denies any abdominal pain, diarrhea, or urinary discomfort.. There have not been any further seizures reported overnight Objective: Vitals (See below) General: Lying in bed, appears comfortable, Patient is awake / alert / oriented x3 HEENT: NC, AT CVS: +S1S2 Lungs: Fair air entry b/l, there does not appear to have any auscultated wheezing, rhonchi or rales Abdomen: Soft, non-distended, non-tender Extremities: LE are without edema, - Calf tenderness Assessment and plan: Acute hypoxic respiratory failure - possibly 2/2 COVID19, possibly 2/2 fluid overload - Patient continues to experience hypoxia, however, has been improving slowly - Patient is now down to 5L of VapoTherm; will continue to taper down and reduce FiO2 - Inflammatory markers continue to improve - c/w Dexamethasone - will begin taper in next 24-48 hours COVID19 positive - c/w incentive spirometry / acapella - c/w supportive care and contact/droplet precautions - Will DC Levaquin; PCT negative Reported left sided weakness - possibly 2/2 TIA, unlikely 2/2 CVA - Patient presented to the ER with reported left-sided weakness as per her daughter - Physical does not reveal any focal deficits - Patient is fully oriented to person, place and time - INR noted to be subtherapeutic - CT head 06/13: No acute intracranial abnormality. Vascular calcification and mild volume loss again noted. - Imaging reviewed / ECHO without thrombus - c/w Coumadin - c/w ASA / Atorvastatin Seizures - Patient had a witnessed seizure on 06/27 involving her left side, tonic- clonic, lasting ~2 minutes, followed by a post-ictal period - No evidence of further seizures - No focal deficits noted post-seizure - Start Keppra 500 IV BID; will continue currently - Discussed with Neurology; will have outpatient follow up with Neurology; will likely require EEG as an outpatient HTN - BP well controlled - s/p BP medications A. fib - Currently patient is rate controlled - INR therapeutic - s/p Metoprolol with hold parameters - c/w full anticoagulation with Coumadin Thrombocytopenia - No evidence of bleeding Hypothyroidism - c/w Levothyroxine s/p Hyponatremia (mild) - Possibly 2/2 volume loss 2/2 recent diarrhea CKD3 - Creatinine appears to be at baseline Dementia - c/w Namenda Iron deficiency anemia - Hg at baseline Hx of C. Diff Hx of Early Alzheimers GERD - c/w Omeprazole and Carafate DVT prophylaxis - c/w full anticoagulation with Coumadin VS,Fishbone, I+O VS, Fishbone, I+O Laboratory Tests 06/28/20 05:34 Vital Signs Date Time Temp Pulse Resp B/P (MAP) Pulse Ox O2 Delivery O2 Flow Rate FiO2 06/28/20 08:58 95.9 64 17 131/73 (92) 91 High Flow Cannula 6.0 06/26/20 16:00 50 I&O- Last 24 Hours up to 6 AM 06/28/20 06:00 Intake Total 885 ml Output Total 800 ml Balance 85 ml CARLINE VELASQUEZ MD Jun 28, 2020 11:48
[2020-06-28 13:45] VITALS: BP 109/62
[2020-06-28] MEDS: dexameTHASONE 4 MG/ML 1ML VIAL (J1100 PER 1MG) IV SCH (17:29)
[2020-06-28] MEDS: WARFARIN SOD 5MG TAB PO SCH (17:29)
[2020-06-28] MEDS: NORTRIPTYLINE 10 MG CAP PO SCH (20:27)
[2020-06-28] MEDS: PRAVASTATIN 20 MG TAB PO SCH (20:27)
[2020-06-28 20:29] VITALS: BP 108/56
[2020-06-29] VITALS: BP 113/60
[2020-06-29 04:21] VITALS: BP 114/58
[2020-06-29] MEDS: LEVOTHYROXINE 88MCG TABLET (0.088 MG) PO SCH (05:03)
[2020-06-29] MEDS: levETIRAcetam INJection 500 MG in D5W MINI-BAG PLUS 100 ML IV SCH (05:03)
[2020-06-29] MEDS: SUCRALFATE 1 GM TAB PO SCH ×5 (07:30→19:58)
[2020-06-29] MEDS: OMEPRAZOLE 20 MG CAP PO SCH (08:07)
[2020-06-29] MEDS: DOCUSATE SODIUM 100MG CAPSULE PO SCH ×2 (08:07→19:57)
[2020-06-29] MEDS: VITAMIN D 1,000 INTERNATIONAL UNITS TABLET PO SCH (08:07)
[2020-06-29] MEDS: MEMANTINE 5MG TABLET (NAMENDA) PO SCH ×2 (08:07→19:57)
[2020-06-29] MEDS: CALCITRIOL 0.25 MCG CAP (S0169) PO SCH (08:07)
[2020-06-29 08:14] LABS: BASO % 0.5 % (0.0-1.0); EOS # 0.2 10^3/uL (0.0-0.5); EOS % 2.2 % (0.0-3.0); HEMATOCRIT 39.2 % (36.0-47.0); HEMOGLOBIN 12.4 g/dl (12.0-15.5); LYMPH # 0.8 10^3/uL (1.5-5.0); LYMPH % 9.3 % (24.0-44.0); MEAN CORPUSCULAR HEMOGLOBIN 29.5 pg (27.0-33.0); MEAN CORPUSCULAR HGB CONC 31.6 g/dl (32.0-36.5); MEAN CORPUSCULAR VOLUME 93.3 fl (80.0-96.0); MONO # 0.6 10^3/uL (0.0-0.8); MONO % 7.3 % (0.0-5.0); NEUTROPHILS # 6.4 10^3/uL (1.5-8.5); NEUTROPHILS % 79.1 % (36.0-66.0); PLATELET COUNT, AUTOMATED 179 10^3/uL (150-450); WHITE BLOOD COUNT 8.1 10^3/uL (4.0-10.0)
[2020-06-29 08:28] LABS: INR 2.1
[2020-06-29 08:47] LABS: ALBUMIN 2.1 GM/DL (3.2-5.2); BILIRUBIN,DIRECT 0.2 MG/DL (0.0-0.2); BILIRUBIN,TOTAL 0.5 MG/DL (0.2-1.0); C REACTIVE PROTEIN QUANTITATIV 1.43 MG/DL (0.00-0.30); CALCIUM LEVEL 8.4 MG/DL (8.8-10.2); CREATININE FOR GFR 1.64 MG/DL (0.55-1.30); MAGNESIUM LEVEL 1.8 MG/DL (1.8-2.4); POTASSIUM SERUM 4.3 MEQ/L (3.5-5.1)
--- NOTE | 2020-06-29 13:31 | IPNPDOC ---
Text Note Date of Service The patient was seen on 06/29/20. NOTE Subjective: Patient is 79-year-old female with a PMHx of HTN, A. fib (s/p Cardioversion x3, on Coumadin), Hypothyroidism, CKD3, Iron deficiency anemia, Hx of C. diff, Hx of Early Alzheimers who presented to the ER with complaints of left-sided weakness. Patient was in the emergency room on 06/12 for persistent diarrhea and was sent home after she had stable vital signs and lab work. Patient presented again to the emergency room after her daughter who was visiting her had noticed left- sided weakness. Patient denies any specific left-sided weakness. Patient reports that she felt generalized weakness. Upon arrival to emergency room, patient did not have any weakness. No tPA was administered because she had full resolution of her symptoms upon arrival to ER. Yesterday afternoon. Patient had a seizure episode which involved the left side of her body. It appeared to be a tonic-clonic episode and lasted for approximately 2 minutes. Patient was seen and examined at the bedside. Patient reports she has had an uneventful evening. She denies any nausea, vomiting, belly pain, diarrhea, constipation. Patient has been continuing to work with physical therapy. She denies any significant shortness of breath or cough. Objective: Vitals (See below) General: Sitting up in bed, appears to be comfortable and not in any acute distress, is oriented to person, place and time HEENT: NC, AT CVS: +S1S2 Lungs: Air entry appears to be fair bilaterally without any evidence of rhonchi, wheezing or crackles Abdomen: Abdomen remains soft without any distention or tenderness Extremities: No edema appreciated at lower extremity, - Calf tenderness Assessment and plan: Acute hypoxic respiratory failure - possibly 2/2 COVID19, possibly 2/2 fluid overload - Patient continues to experience hypoxia, however, has been improving slowly - Patient is currently on nasal cannula oxygen at 5 L; Off of Vapotherm - Inflammatory markers continue to improve - c/w Dexamethasone; will begin taper tomorrow COVID19 positive - c/w incentive spirometry / acapella - c/w supportive care and contact/droplet precautions - s/p Levaquin; PCT negative Reported left sided weakness - possibly 2/2 TIA, unlikely 2/2 CVA - Patient presented to the ER with reported left-sided weakness as per her daughter - Physical does not reveal any focal deficits - Patient is fully oriented to person, place and time - INR noted to be subtherapeutic - CT head 06/13: No acute intracranial abnormality. Vascular calcification and mild volume loss again noted. - Imaging reviewed / ECHO without thrombus - c/w Coumadin - c/w ASA / Atorvastatin Seizures - Patient had a witnessed seizure on 06/27 involving her left side, tonic- clonic, lasting ~2 minutes, followed by a post-ictal period - No evidence of further seizures - No focal deficits noted post-seizure - c/w Keppra 500 IV BID - Discussed with Neurology; will have outpatient follow up with Neurology; will likely require EEG as an outpatient HTN - BP well controlled - s/p BP medications A. fib - Currently patient is rate controlled - INR therapeutic - s/p Metoprolol with hold parameters - c/w full anticoagulation with Coumadin Thrombocytopenia - No evidence of bleeding Hypothyroidism - c/w Levothyroxine s/p Hyponatremia (mild) - Possibly 2/2 volume loss 2/2 recent diarrhea CKD3 - Creatinine appears to be at baseline Dementia - c/w Namenda Iron deficiency anemia - Hg at baseline Hx of C. Diff Hx of Early Alzheimers GERD - c/w Omeprazole and Carafate DVT prophylaxis - c/w full anticoagulation with Coumadin Disposition: - Awaiting for oxygenation to improve; baseline is on room air - Awaiting for PT / OT clearance VS,Fishbone, I+O VS, Fishbone, I+O Laboratory Tests 06/29/20 07:41 Vital Signs Date Time Temp Pulse Resp B/P (MAP) Pulse Ox O2 Delivery O2 Flow Rate FiO2 06/29/20 09:00 6.0 06/29/20 05:00 90 High Flow Cannula 06/29/20 04:21 95.7 59 18 114/58 (76) 06/26/20 16:00 50 I&O- Last 24 Hours up to 6 AM 06/29/20 06:00 Intake Total 1050 ml Balance 1050 ml CARLINE VELASQUEZ MD Jun 29, 2020 13:31
[2020-06-29 15:00] VITALS: BP 110/61
[2020-06-29] MEDS: WARFARIN SOD 5MG TAB PO SCH (16:36)
[2020-06-29] MEDS: levETIRAcetam 250MG TABLET (KEPPRA) PO SCH (19:57)
[2020-06-29] MEDS: PRAVASTATIN 20 MG TAB PO SCH (19:57)
[2020-06-29] MEDS: NORTRIPTYLINE 10 MG CAP PO SCH (19:58)
[2020-06-29 19:59] VITALS: BP 132/68
[2020-06-30] VITALS: BP 107/58
[2020-06-30 04:00] VITALS: BP 110/55
[2020-06-30] MEDS: LEVOTHYROXINE 88MCG TABLET (0.088 MG) PO SCH (05:00)
[2020-06-30 08:30] LABS: BASO % 0.3 % (0.0-1.0); EOS # 0.2 10^3/uL (0.0-0.5); HEMATOCRIT 38.7 % (36.0-47.0); HEMOGLOBIN 12.4 g/dl (12.0-15.5); LYMPH # 0.8 10^3/uL (1.5-5.0); MEAN CORPUSCULAR VOLUME 93.5 fl (80.0-96.0); MONO # 0.6 10^3/uL (0.0-0.8); MONO % 6.3 % (0.0-5.0); NEUTROPHILS # 7.4 10^3/uL (1.5-8.5); PLATELET COUNT, AUTOMATED 186 10^3/uL (150-450); RED BLOOD COUNT 4.14 10^6/uL (4.00-5.40); WHITE BLOOD COUNT 9.1 10^3/uL (4.0-10.0)
[2020-06-30 08:49] LABS: INR 1.78; PROTHROMBIN TIME 21.1 SECONDS (12.5-14.3)
[2020-06-30] MEDS: SUCRALFATE 1 GM TAB PO SCH ×5 (08:52→21:00)
[2020-06-30] MEDS: CALCITRIOL 0.25 MCG CAP (S0169) PO SCH (08:52)
[2020-06-30] MEDS: DOCUSATE SODIUM 100MG CAPSULE PO SCH ×2 (08:52→21:32)
[2020-06-30] MEDS: VITAMIN D 1,000 INTERNATIONAL UNITS TABLET PO SCH (08:52)
[2020-06-30] MEDS: MEMANTINE 5MG TABLET (NAMENDA) PO SCH ×2 (08:52→21:32)
[2020-06-30] MEDS: levETIRAcetam 250MG TABLET (KEPPRA) PO SCH ×2 (08:53→21:32)
[2020-06-30] MEDS: OMEPRAZOLE 20 MG CAP PO SCH (08:53)
[2020-06-30 09:05] LABS: ALBUMIN 2.1 GM/DL (3.2-5.2); BILIRUBIN,DIRECT 0.1 MG/DL (0.0-0.2); BILIRUBIN,TOTAL 0.4 MG/DL (0.2-1.0); C REACTIVE PROTEIN QUANTITATIV 1.7 MG/DL (0.00-0.30); CALCIUM LEVEL 8.7 MG/DL (8.8-10.2); CREATININE FOR GFR 1.61 MG/DL (0.55-1.30); GLOMERULAR FILTRATION RATE 32.7 (>32); MAGNESIUM LEVEL 1.7 MG/DL (1.8-2.4); POTASSIUM SERUM 4.5 MEQ/L (3.5-5.1); TOTAL PROTEIN 5.9 GM/DL (6.4-8.2)
[2020-06-30] MEDS ORDERED: MAG SULF 1GM/100ML (MAG RUN) 1 GM in IV 1 EA IV ONE (10:00)
--- NOTE | 2020-06-30 12:47 | IPNPDOC ---
Text Note Date of Service The patient was seen on 06/30/20. NOTE Subjective: Patient is 79-year-old female with a PMHx of HTN, A. fib (s/p Cardioversion x3, on Coumadin), Hypothyroidism, CKD3, Iron deficiency anemia, Hx of C. diff, Hx of Early Alzheimers who presented to the ER with complaints of left-sided weakness. Patient was in the emergency room on 06/12 for persistent diarrhea and was sent home after she had stable vital signs and lab work. Patient presented again to the emergency room after her daughter who was visiting her had noticed left- sided weakness. Patient denies any specific left-sided weakness. Patient reports that she felt generalized weakness. Upon arrival to emergency room, patient did not have any weakness. No tPA was administered because she had full resolution of her symptoms upon arrival to ER. Patient was seen and examined at the bedside. This morning patient was getting out of bed and being ambulated to the commode when she experienced dizziness, lightheadedness, became hypoxic and was suspected on 100% nonrebreather. Since that point. Patient's oxygenation has been tapered back down to 4 L nasal cannula. . She reports that currently while resting in bed. She denies any nausea, vomiting, chest pain, shortness breath or palpitations. Doesn't experience any dizziness while resting comfortably. Denies any abdominal pain, diarrhea, or urinary discomfort. Patient denies any swelling of her legs. Objective: Vitals (See below) General: Patient appears to be comfortable putting up in bed, does not appear to be in any distress, is awake, alert and oriented 3 HEENT: NC, AT CVS: +S1S2 Lungs: There appears to be diminished air entry bilaterally without any evidence of rhonchi, crackles or wheezing Abdomen: Abdomen remains soft without any distention or tenderness Extremities: Lower extremities are without any edema, - Calf tenderness Assessment and plan: Acute hypoxic respiratory failure - possibly 2/2 COVID19, less likely 2/2 fluid overload - Patient's oxygenation requirement has been improving - Inflammatory markers have had a slight increase this morning - c/w Dexamethasone taper COVID19 positive - c/w incentive spirometry / acapella - c/w supportive care and contact/droplet precautions - s/p Levaquin; PCT negative Reported left sided weakness - possibly 2/2 TIA, unlikely 2/2 CVA - Patient presented to the ER with reported left-sided weakness as per her daughter - Physical does not reveal any focal deficits - Patient is fully oriented to person, place and time - INR noted to be subtherapeutic - CT head 06/13: No acute intracranial abnormality. Vascular calcification and mild volume loss again noted. - Imaging reviewed / ECHO without thrombus - c/w Coumadin - c/w ASA / Atorvastatin Seizures - Patient had a witnessed seizure on 06/27 involving her left side, tonic- clonic, lasting ~2 minutes, followed by a post-ictal period - No evidence of further seizures - No focal deficits noted post-seizure - c/w Keppra 500; adjusted to PO - Discussed with Neurology; will have outpatient follow up with Neurology; will likely require EEG as an outpatient Orthostatic hypotension - Patient continues to experience episodes of orthostatic hypotension; becomes symptomatic and reports dizziness upon standing - Hx of HTN - BP well controlled while in bed - s/p BP medications - Medications reviewed; Will discontinue nortriptyline at this time - Will have compression stockings placed when working with physical therapy A. fib - Currently patient is rate controlled - INR sub-therapeutic - s/p Metoprolol with hold parameters - c/w full anticoagulation with Coumadin Thrombocytopenia - No evidence of bleeding Hypothyroidism - c/w Levothyroxine s/p Hyponatremia (mild) - Possibly 2/2 volume loss 2/2 recent diarrhea CKD3 - Creatinine appears to be at baseline Dementia - c/w Namenda Iron deficiency anemia - Hg at baseline Hx of C. Diff Hx of Early Alzheimers GERD - c/w Omeprazole and Carafate DVT prophylaxis - c/w full anticoagulation with Coumadin Disposition: - c/w PT / OT - Awaiting clinical improvement VSQing, I+O VSQing I+O Laboratory Tests 06/30/20 08:06 Vital Signs Date Time Temp Pulse Resp B/P (MAP) Pulse Ox O2 Delivery O2 Flow Rate FiO2 06/30/20 10:40 93 Nasal Cannula 4.0 06/30/20 10:30 100 06/30/20 04:00 96.1 64 20 110/55 (73) I&O- Last 24 Hours up to 6 AM 06/30/20 06:00 Intake Total 720 ml Output Total 875 ml Balance -155 ml CARLINE VELASQUEZ MD Jun 30, 2020 12:47
[2020-06-30 14:00] VITALS: BP 120/80
[2020-06-30] MEDS: WARFARIN SOD 5MG TAB PO SCH (17:17)
[2020-06-30 20:00] VITALS: BP 129/72
[2020-06-30] MEDS: PRAVASTATIN 20 MG TAB PO SCH (21:32)
[2020-07-01] VITALS (9 sets, daily range): BP systolic 87–132; BP diastolic 51–72
[2020-07-01] MEDS: LEVOTHYROXINE 88MCG TABLET (0.088 MG) PO SCH (06:36)
[2020-07-01] MEDS: SUCRALFATE 1 GM TAB PO SCH ×4 (07:30→21:00)
[2020-07-01 07:35] LABS: BASO % 0.3 % (0.0-1.0); EOS # 0.1 10^3/uL (0.0-0.5); EOS % 1.3 % (0.0-3.0); HEMATOCRIT 37.4 % (36.0-47.0); HEMOGLOBIN 11.2 g/dl (12.0-15.5); LYMPH # 0.9 10^3/uL (1.5-5.0); MEAN CORPUSCULAR HEMOGLOBIN 28.3 pg (27.0-33.0); MEAN CORPUSCULAR HGB CONC 29.9 g/dl (32.0-36.5); MEAN CORPUSCULAR VOLUME 94.4 fl (80.0-96.0); MONO # 0.6 10^3/uL (0.0-0.8); MONO % 5.3 % (0.0-5.0); NEUTROPHILS # 9.2 10^3/uL (1.5-8.5); NEUTROPHILS % 84.1 % (36.0-66.0); PLATELET COUNT, AUTOMATED 189 10^3/uL (150-450); RED BLOOD COUNT 3.96 10^6/uL (4.00-5.40); WHITE BLOOD COUNT 10.9 10^3/uL (4.0-10.0)
[2020-07-01 07:49] LABS: INR 1.52; PROTHROMBIN TIME 18.6 SECONDS (12.5-14.3)
[2020-07-01] MEDS: OMEPRAZOLE 20 MG CAP PO SCH (07:56)
[2020-07-01] MEDS: DOCUSATE SODIUM 100MG CAPSULE PO SCH ×2 (07:57→21:48)
[2020-07-01] MEDS: MEMANTINE 5MG TABLET (NAMENDA) PO SCH ×2 (07:57→21:49)
[2020-07-01] MEDS: VITAMIN D 1,000 INTERNATIONAL UNITS TABLET PO SCH (07:57)
[2020-07-01] MEDS: CALCITRIOL 0.25 MCG CAP (S0169) PO SCH (07:57)
[2020-07-01] MEDS: levETIRAcetam 250MG TABLET (KEPPRA) PO SCH ×2 (07:57→21:48)
--- NOTE | 2020-07-01 11:13 | IPNPDOC ---
Text Note Date of Service The patient was seen on 07/01/20. NOTE Subjective: Patient is 79-year-old female with a PMHx of HTN, A. fib (s/p Cardioversion x3, on Coumadin), Hypothyroidism, CKD3, Iron deficiency anemia, Hx of C. diff, Hx of Early Alzheimers who presented to the ER with complaints of left-sided weakness. Patient was in the emergency room on 06/12 for persistent diarrhea and was sent home after she had stable vital signs and lab work. Patient presented again to the emergency room after her daughter who was visiting her had noticed left- sided weakness. Patient denies any specific left-sided weakness. Patient reports that she felt generalized weakness. Upon arrival to emergency room, patient did not have any weakness. No tPA was administered because she had full resolution of her symptoms upon arrival to ER. Patient's hospital course was complicated after she became hypoxic, which was thought to be secondary to COVID19 pneumonia versus fluid overload. Patient was seen and examined at the bedside. Patient again has had an uneventful evening. She denies any chest pain, shortness breath, palpitations, nausea, vomiting, belly pain, diarrhea, or urinary discomfort. Objective: Vitals (See below) General: Sitting up in bed, appears to be comfortable, no acute distress, awake, alert and oriented 3 HEENT: NC, AT CVS: +S1S2 Lungs: Air entry appears to be fair bilaterally without any evidence of rhonchi, crackles or wheezing Abdomen: Soft without distention or tenderness Extremities: No pitting edema of lower extremities, - Calf tenderness Assessment and plan: Acute hypoxic respiratory failure - possibly 2/2 COVID19, less likely 2/2 fluid overload - Patient's oxygenation requirement has been improving; will continue to taper off - Inflammatory markers pending this morning - c/w Dexamethasone taper COVID19 positive - c/w incentive spirometry / acapella - c/w supportive care and contact/droplet precautions - s/p Levaquin; PCT negative Reported left sided weakness - possibly 2/2 TIA, unlikely 2/2 CVA - Patient presented to the ER with reported left-sided weakness as per her daughter - Physical does not reveal any focal deficits - Patient is fully oriented to person, place and time - INR noted to be subtherapeutic - CT head 06/13: No acute intracranial abnormality. Vascular calcification and mild volume loss again noted. - Imaging reviewed / ECHO without thrombus - c/w Coumadin - c/w ASA / Atorvastatin Seizures - Patient had a witnessed seizure on 06/27 involving her left side, tonic- clonic, lasting ~2 minutes, followed by a post-ictal period - No evidence of further seizures - No focal deficits noted post-seizure - c/w Keppra 500; adjusted to PO - Discussed with Neurology; will have outpatient follow up with Neurology; will likely require EEG as an outpatient Orthostatic hypotension - Continues to be symptomatic; Reports dizziness upon standing - Hx of HTN - BP well controlled while in bed - s/p BP medications - Medications reviewed; s/p nortriptyline - Will have VIKAS wraps of her legs upon standing - Will consider starting Midodrine if BP fails to improve with standing / if she remains symptomatic A. fib - Currently patient is rate controlled - INR sub-therapeutic - s/p Metoprolol with hold parameters - c/w full anticoagulation with Coumadin; will increase dose Thrombocytopenia - No evidence of bleeding Hypothyroidism - c/w Levothyroxine s/p Hyponatremia (mild) - Possibly 2/2 volume loss 2/2 recent diarrhea CKD3 - Creatinine appears to be at baseline Dementia - c/w Namenda Iron deficiency anemia - Hg at baseline Hx of C. Diff Hx of Early Alzheimers GERD - c/w Omeprazole and Carafate DVT prophylaxis - c/w full anticoagulation with Coumadin Disposition: - c/w PT / OT - Awaiting clinical improvement VS,Fishbone, I+O VS, Fishbone, I+O Laboratory Tests 07/01/20 07:04 Vital Signs Date Time Temp Pulse Resp B/P (MAP) Pulse Ox O2 Delivery O2 Flow Rate FiO2 07/01/20 08:00 97.0 61 18 132/72 (92) 93 Nasal Cannula 3.0 06/30/20 10:30 100 I&O- Last 24 Hours up to 6 AM 07/01/20 06:00 Intake Total 1200 ml Output Total 200 ml Balance 1000 ml CARLINE VELASQUEZ MD Jul 01, 2020 11:12
[2020-07-01] MEDS ORDERED: WARFARIN SOD 7.5MG TAB PO SCH (17:00)
[2020-07-01] MEDS: PRAVASTATIN 20 MG TAB PO SCH (21:49)
[2020-07-02 04:00] VITALS: BP 112/74
[2020-07-02] MEDS: LEVOTHYROXINE 88MCG TABLET (0.088 MG) PO SCH (05:44)
[2020-07-02] MEDS: SUCRALFATE 1 GM TAB PO SCH ×6 (06:49→21:27)
[2020-07-02 07:12] LABS: BASO % 0.4 % (0.0-1.0); EOS # 0.3 10^3/uL (0.0-0.5); EOS % 2.6 % (0.0-3.0); HEMATOCRIT 36.4 % (36.0-47.0); HEMOGLOBIN 11.2 g/dl (12.0-15.5); LYMPH # 0.9 10^3/uL (1.5-5.0); LYMPH % 9.9 % (24.0-44.0); MEAN CORPUSCULAR HEMOGLOBIN 28.7 pg (27.0-33.0); MEAN CORPUSCULAR HGB CONC 30.8 g/dl (32.0-36.5); MEAN CORPUSCULAR VOLUME 93.3 fl (80.0-96.0); MONO # 0.6 10^3/uL (0.0-0.8); MONO % 6.5 % (0.0-5.0); NEUTROPHILS # 7.6 10^3/uL (1.5-8.5); NEUTROPHILS % 79.3 % (36.0-66.0); PLATELET COUNT, AUTOMATED 191 10^3/uL (150-450); WHITE BLOOD COUNT 9.5 10^3/uL (4.0-10.0)
[2020-07-02 07:33] LABS: INR 1.42; PROTHROMBIN TIME 17.7 SECONDS (12.5-14.3)
[2020-07-02 07:36] LABS: ALBUMIN 2.2 GM/DL (3.2-5.2); BILIRUBIN,DIRECT 0.2 MG/DL (0.0-0.2); BILIRUBIN,TOTAL 0.4 MG/DL (0.2-1.0); C REACTIVE PROTEIN QUANTITATIV 1.06 MG/DL (0.00-0.30); CALCIUM LEVEL 9.1 MG/DL (8.8-10.2); CREATININE FOR GFR 1.68 MG/DL (0.55-1.30); GLOMERULAR FILTRATION RATE 31.1 (>32); MAGNESIUM LEVEL 1.8 MG/DL (1.8-2.4); POTASSIUM SERUM 4.4 MEQ/L (3.5-5.1)
[2020-07-02] MEDS: MEMANTINE 5MG TABLET (NAMENDA) PO SCH ×2 (09:50→21:27)
[2020-07-02] MEDS: levETIRAcetam 250MG TABLET (KEPPRA) PO SCH ×2 (09:51→21:27)
[2020-07-02] MEDS: DOCUSATE SODIUM 100MG CAPSULE PO SCH ×2 (09:51→21:27)
[2020-07-02] MEDS: OMEPRAZOLE 20 MG CAP PO SCH (09:51)
[2020-07-02] MEDS: CALCITRIOL 0.25 MCG CAP (S0169) PO SCH (09:51)
[2020-07-02] MEDS: VITAMIN D 1,000 INTERNATIONAL UNITS TABLET PO SCH (09:51)
--- NOTE | 2020-07-02 10:15 | IPNPDOC ---
Text Note Date of Service The patient was seen on 07/02/20. NOTE Subjective: Patient is 79-year-old female with a PMHx of HTN, A. fib (s/p Cardioversion x3, on Coumadin), Hypothyroidism, CKD3, Iron deficiency anemia, Hx of C. diff, Hx of Early Alzheimers who presented to the ER with complaints of left-sided weakness. Patient was in the emergency room on 06/12 for persistent diarrhea and was sent home after she had stable vital signs and lab work. Patient presented again to the emergency room after her daughter who was visiting her had noticed left- sided weakness. Patient denies any specific left-sided weakness. Patient reports that she felt generalized weakness. Upon arrival to emergency room, patient did not have any weakness. No tPA was administered because she had full resolution of her symptoms upon arrival to ER. Patient's hospital course was complicated after she became hypoxic, which was thought to be secondary to COVID19 pneumonia versus fluid overload. Patient was seen and examined at the bedside. Patient reports that she feels relatively fine. She denies any nausea, vomiting, chest pain, palpitations. Reports a mild cough. Denies any abdominal pain, diarrhea, or urinary discomfort. Patient does report lightheadedness and dizziness upon standing. Objective: Vitals (See below) General: Laying in bed, does not appear to be in any distress, appears comforta ble, awake, alert and oriented 3 HEENT: NC, AT CVS: +S1S2 Lungs: Air entry is fair bilaterally on auscultation, there does not appear to be any appreciated wheezing, crackles or rhonchi Abdomen: Again, her abdomen is soft without any distention or appreciable tenderness Extremities: Lower extremities are without any pitting edema, - Calf tenderness Assessment and plan: Acute hypoxic respiratory failure - possibly 2/2 COVID19, less likely 2/2 fluid overload - Over the course of the week. Her oxygenation requirement has improved; currently she is on nasal cannula 2 L - Inflammatory markers have been improving - Will start prednisone taper; s/p Dexamethasone COVID19 positive - c/w incentive spirometry / acapella - c/w supportive care and contact/droplet precautions - s/p Levaquin; PCT negative Reported left sided weakness - possibly 2/2 TIA, unlikely 2/2 CVA - Patient presented to the ER with reported left-sided weakness as per her daughter - Physical does not reveal any focal deficits - Patient is fully oriented to person, place and time - INR noted to be subtherapeutic - CT head 06/13: No acute intracranial abnormality. Vascular calcification and mild volume loss again noted. - Imaging reviewed / ECHO without thrombus - c/w Coumadin - c/w ASA / Atorvastatin Seizures - Patient had a witnessed seizure on 06/27 involving her left side, tonic-clon ic, lasting ~2 minutes, followed by a post-ictal period - No evidence of further seizures - No focal deficits noted post-seizure - c/w Keppra 500; adjusted to PO - Discussed with Neurology; will have outpatient follow up with Neurology; will likely require EEG as an outpatient Orthostatic hypotension - Continues to be symptomatic; Reports dizziness upon standing - Hx of HTN - BP well controlled while in bed - s/p BP medications - Medications reviewed; s/p nortriptyline; Will start prednisone taper (re: Prolonged dexamethasone duration) - Will check cortisol level in AM - Will have VIKAS wraps of her legs upon standing - Will consider starting Midodrine if BP fails to improve with standing / if she remains symptomatic A. fib - Currently patient is rate controlled - INR sub-therapeutic - s/p Metoprolol with hold parameters - c/w full anticoagulation with Coumadin; will again increase dose Thrombocytopenia - No evidence of bleeding Hypothyroidism - c/w Levothyroxine s/p Hyponatremia (mild) - Possibly 2/2 volume loss 2/2 recent diarrhea CKD3 - Creatinine appears to be at baseline Dementia - c/w Namenda Iron deficiency anemia - Hg at baseline Hx of C. Diff Hx of Early Alzheimers GERD - c/w Omeprazole and Carafate DVT prophylaxis - c/w full anticoagulation with Coumadin Disposition: - c/w PT / OT - Awaiting clinical improvement VS,Fishbone, I+O VS, Fishbone, I+O Laboratory Tests 07/02/20 07:01 Vital Signs Date Time Temp Pulse Resp B/P (MAP) Pulse Ox O2 Delivery O2 Flow Rate FiO2 07/02/20 04:00 98.1 64 18 112/74 (87) 91 Nasal Cannula 2.0 06/30/20 10:30 100 I&O- Last 24 Hours up to 6 AM 07/02/20 06:00 Intake Total 780 ml Output Total 950 ml Balance -170 ml CARLINE VELASQUEZ MD Jul 02, 2020 10:15
[2020-07-02] MEDS: predniSONE 20 MG TAB PO SCH (12:58)
[2020-07-02 12:59] VITALS: BP 120/67
[2020-07-02] MEDS: WARFARIN SOD 5MG TAB PO SCH (17:03)
[2020-07-02 20:00] VITALS: BP 127/67
[2020-07-02] MEDS: PRAVASTATIN 20 MG TAB PO SCH (21:28)
[2020-07-03 04:00] VITALS: BP 102/59
[2020-07-03] MEDS: LEVOTHYROXINE 88MCG TABLET (0.088 MG) PO SCH (05:59)
[2020-07-03 06:55] LABS: BASO % 0.5 % (0.0-1.0); EOS # 0.2 10^3/uL (0.0-0.5); EOS % 1.9 % (0.0-3.0); HEMATOCRIT 38.8 % (36.0-47.0); LYMPH # 0.9 10^3/uL (1.5-5.0); LYMPH % 9.6 % (24.0-44.0); MEAN CORPUSCULAR HEMOGLOBIN 29.6 pg (27.0-33.0); MEAN CORPUSCULAR HGB CONC 30.9 g/dl (32.0-36.5); MEAN CORPUSCULAR VOLUME 95.6 fl (80.0-96.0); MONO # 0.6 10^3/uL (0.0-0.8); MONO % 6.8 % (0.0-5.0); NEUTROPHILS # 7.1 10^3/uL (1.5-8.5); NEUTROPHILS % 80.1 % (36.0-66.0); PLATELET COUNT, AUTOMATED 184 10^3/uL (150-450); RED BLOOD COUNT 4.06 10^6/uL (4.00-5.40); WHITE BLOOD COUNT 8.9 10^3/uL (4.0-10.0)
[2020-07-03 07:09] LABS: INR 1.43; PROTHROMBIN TIME 17.8 SECONDS (12.5-14.3)
[2020-07-03 07:22] LABS: ALBUMIN 2.3 GM/DL (3.2-5.2); BILIRUBIN,DIRECT 0.1 MG/DL (0.0-0.2); BILIRUBIN,TOTAL 0.4 MG/DL (0.2-1.0); C REACTIVE PROTEIN QUANTITATIV 1.12 MG/DL (0.00-0.30); CALCIUM LEVEL 8.6 MG/DL (8.8-10.2); CREATININE FOR GFR 1.75 MG/DL (0.55-1.30); GLOMERULAR FILTRATION RATE 29.7 (>32); MAGNESIUM LEVEL 1.8 MG/DL (1.8-2.4); POTASSIUM SERUM 4.8 MEQ/L (3.5-5.1)
[2020-07-03] MEDS: SUCRALFATE 1 GM TAB PO SCH ×6 (07:30→20:37)
[2020-07-03] MEDS: levETIRAcetam 250MG TABLET (KEPPRA) PO SCH ×2 (09:26→20:35)
[2020-07-03] MEDS: OMEPRAZOLE 20 MG CAP PO SCH (09:26)
[2020-07-03] MEDS: MEMANTINE 5MG TABLET (NAMENDA) PO SCH ×2 (09:26→20:34)
[2020-07-03] MEDS: CALCITRIOL 0.25 MCG CAP (S0169) PO SCH (09:26)
[2020-07-03] MEDS: DOCUSATE SODIUM 100MG CAPSULE PO SCH ×2 (09:26→20:34)
[2020-07-03] MEDS: predniSONE 20 MG TAB PO SCH (09:26)
[2020-07-03] MEDS: VITAMIN D 1,000 INTERNATIONAL UNITS TABLET PO SCH (09:27)
[2020-07-03 12:21] VITALS: BP 119/65
--- NOTE | 2020-07-03 14:12 | IPNPDOC ---
Subjective Date Seen The patient was seen on 07/03/20. Subjective Chief Complaint/HPI HISTORY OF PRESENT ILLNESS: Pt was seen at bedside this am. No acute complaints overnight. No acute events overnight. Will repeat her COVID PCR test today. Will likely D/C if PT/OT clears and will be discharged to subacute rehab. Will update the family today of the plan. Her bp is on the soft side and will add a standing midodrine to her regimen. REVIEW OF SYSTEMS: CONSTITUTIONAL: No fevers, chills, diaphoresis overnight HEENT: No blurred vision, loss of vision, or headache, no hearing loss CARDIOVASCULAR: patient denies chest pain, palpitations. RESPIRATORY: patient denies shortness of breath, cough, hemoptysis. GASTROINTESTINAL: No epigastric abdominal pain, constipation GENITOURINARY: No dysuria SKIN: patient denies rashes, necrotic looking skin noted MUSCULOSKELETAL: patient denies joint pain, neck pain. NEUROLOGICA: No focal neuro deficits, strength 4/5 throughout PSYCHIATRIC: appropriate mood and affect ENDOCRINE: patient denies polyuria, heat intolerance, cold intolerance HEMATOLOGIC/LYMPHATIC: patient denies easy bruising, no visible bleeding PHYSICAL EXAMINATION: VITAL SIGNS: please see below General: NAD, lying in bed, comfortable; [id number]% on 2L NC HEENT: PERRLA, EOMI, sclerae non jaundiced, no hearing loss Neck: supple, normal ROM, no JVD Respiratory: lungs CTAB, no wheeze, no rales, no crackles CVS: Sinus rhythm, normal S1, S2, no murmurs Abdomen: non distended and non tender on palpation, + BS, no guarding Extremities: no edema, pulses 2+ lower extr MSK: no joint deformities, normal ROM, left CVA tenderness to percussion Neuro: no focal neuro deficits, moving all 4 extremities, CN2-12 intact. Strength 4/5 in all 4 extremities. No nystagmus. Psych: calm, cooperative, AAO x 3 ASSESSMENT AND PLAN: This is an elderly 79-year-old female with a PMHx of HTN, A. fib (s/p Cardioversion x3, on Coumadin), Hypothyroidism, CKD3, Iron deficiency anemia, Hx of C. diff, Hx of Early Alzheimers who presented to the ER with complaints of left-sided weakness.Patient was in the emergency room on 06/12 for persistent diarrhea and was sent home after she had stable vital signs and lab work. Patient presented again to the emergency room after her daughter who was visiting her had noticed left-sided weakness. Patient denies any specific left- sided weakness. Patient reports that she felt generalized weakness. Upon arrival to emergency room, patient did not have any weakness. No tPA was administered because she had full resolution of her symptoms upon arrival to ER. Patient's hospital course was complicated after she became hypoxic, which was thought to be secondary to COVID19 pneumonia versus fluid overload. Acute hypoxic respiratory failure - possibly 2/2 COVID19, less likely 2/2 fluid overload - Over the course of the week. Her oxygenation requirement has improved; currently she is on nasal cannula 2 L - Inflammatory markers have been improving - Will start prednisone taper; s/p Dexamethasone COVID19 positive - c/w incentive spirometry / acapella - c/w supportive care and contact/droplet precautions - s/p Levaquin; PCT negative Reported left sided weakness - possibly 2/2 TIA, unlikely 2/2 CVA - Patient presented to the ER with reported left-sided weakness as per her daughter - Physical does not reveal any focal deficits - Patient is fully oriented to person, place and time - INR noted to be subtherapeutic - CT head 06/13: No acute intracranial abnormality. Vascular calcification and mild volume loss again noted. - Imaging reviewed / ECHO without thrombus - c/w Coumadin - c/w ASA / Atorvastatin Seizures - Patient had a witnessed seizure on 06/27 involving her left side, tonic- clonic, lasting ~2 minutes, followed by a post-ictal period - No evidence of further seizures - No focal deficits noted post-seizure - c/w Keppra 500; adjusted to PO - Discussed with Neurology; will have outpatient follow up with Neurology; will likely require EEG as an outpatient Orthostatic hypotension - Continues to be symptomatic; Reports dizziness upon standing - Hx of HTN - BP well controlled while in bed - s/p BP medications - Medications reviewed; s/p nortriptyline; Will start prednisone taper (re: Prolonged dexamethasone duration) - Will check cortisol level in AM - Will have VIKAS wraps of her legs upon standing - Will consider starting Midodrine if BP fails to improve with standing / if she remains symptomatic A. fib - Currently patient is rate controlled - INR sub-therapeutic - s/p Metoprolol with hold parameters - c/w full anticoagulation with Coumadin; will again increase dose Thrombocytopenia - No evidence of bleeding Hypothyroidism - c/w Levothyroxine s/p Hyponatremia (mild) - Possibly 2/2 volume loss 2/2 recent diarrhea CKD3 - Creatinine appears to be at baseline Dementia - c/w Namenda Iron deficiency anemia - Hg at baseline Hx of C. Diff Hx of Early Alzheimers GERD - c/w Omeprazole and Carafate DVT prophylaxis - c/w full anticoagulation with Coumadin Disposition: - c/w PT / OT. Repeat COVID is positive on 07/03. Will d/c to subacute rehab once PT/OT clears Objective Physical Examination General Exam: Positive: Cooperative Eye Exam: Positive: EOMI; Negative: Sclera icteric ENT Exam: Positive: Atraumatic Neck Exam: Positive: Supple Chest Exam: Positive: Rales Heart Exam: Positive: Tachycardic, Regular Rhythm Abdomen Exam: Positive: Normal bowel sounds, Soft; Negative: Tenderness Extremity Exam: Negative: Edema Neuro Exam: Positive: Cranial Nerves 3-12 NL Psych Exam: Positive: Mental status NL, Mood NL Assessment /Plan Plan/VTE VTE Prophylaxis Ordered?: Yes VS, I&O, 24H, [facility] Vital Signs/I&O Vital Signs Date Time Temp Pulse Resp B/P (MAP) Pulse Ox O2 Delivery O2 Flow Rate FiO2 07/03/20 12:21 97.6 67 18 119/65 (83) 95 Nasal Cannula 2.0 06/30/20 10:30 100 I&O- Last 24 Hours up to 6 AM 07/03/20 06:00 Intake Total 1320 ml Balance 1320 ml Laboratory Data 24H LABS Laboratory Tests 2 07/03/20 06:17: Immature Granulocyte % (Auto) 1.1, Neutrophils (%) (Auto) 80.1H, Lymphocytes (%) (Auto) 9.6L, Monocytes (%) (Auto) 6.8H, Eosinophils (%) (Auto) 1.9, Basophils (%) (Auto) 0.5, Neutrophils # (Auto) 7.1, Lymphocytes # (Auto) 0.9L, Monocytes # (Auto) 0.6, Eosinophils # (Auto) 0.2, Basophils # (Auto) 0.0, Nucleated Red Blood Cells % (auto) 0.0, Prothrombin Time 17.8H, Prothromb Time International Ratio 1.43, Anion Gap 5L, Glomerular Filtration Rate 29.7L, Calcium Level 8.6L, Magnesium Level 1.8, Ferritin 648H, Total Bilirubin 0.4, Direct Bilirubin 0.1, Aspartate Amino Transf (AST/SGOT) 22, Alanine Aminotransferase (ALT/SGPT) 15, Alkaline Phosphatase 82, C-Reactive Protein, Quantitative 1.12H, Total Protein 6.0L, Albumin 2.3L, Albumin/Globulin Ratio 0.6L, Cortisol AM Sample 8.0 07/03/20 12:20: Coronavirus (COVID-19)(PCR) POSITIVEA CBC/BMP Laboratory Tests 07/03/20 06:17 GME ATTESTATION GME ATTESTATION My faculty preceptor for this patient encounter was physically present during the encounter and was fully available. All aspects of the patient interview, examination, medical decision making process, and medical care plan development were reviewed and approved by the faculty preceptor. The faculty preceptor is aware and concurs with the plan as stated in the body of this note and will attest to such by his/her cosignature. ATTENDING NOTE I, Ke Orellana MD, have independently examined this patient and performed my own physical exam, as well as reviewed the documentation and edited where necessary. I have discussed in detail with the resident / student the findings and plan of treatment as documented by the resident / student and edited their note. I agree with their findings and treatment plan and have edited their documentation. Mc Sanchez DO Jul 03, 2020 14:12 KE ORELLANA MD Jul 13, 2020 14:29
[2020-07-03 15:20] VITALS: BP 141/91
[2020-07-03] MEDS: MIDODRINE 2.5 MG TAB PO SCH (18:19)
[2020-07-03] MEDS: WARFARIN SOD 5MG TAB PO SCH (18:20)
[2020-07-03] MEDS: PRAVASTATIN 20 MG TAB PO SCH (20:34)
[2020-07-03 22:00] VITALS: BP 99/62
[2020-07-04] MEDS: LEVOTHYROXINE 88MCG TABLET (0.088 MG) PO SCH (05:44)
[2020-07-04] MEDS: MIDODRINE 2.5 MG TAB PO SCH ×2 (05:44→18:45)
[2020-07-04 06:00] VITALS: BP 123/72
[2020-07-04 06:30] LABS: BASO % 0.2 % (0.0-1.0); EOS % 0.1 % (0.0-3.0); HEMATOCRIT 38.9 % (36.0-47.0); LYMPH # 0.7 10^3/uL (1.5-5.0); LYMPH % 6.6 % (24.0-44.0); MEAN CORPUSCULAR HEMOGLOBIN 28.7 pg (27.0-33.0); MEAN CORPUSCULAR HGB CONC 30.8 g/dl (32.0-36.5); MEAN CORPUSCULAR VOLUME 93.1 fl (80.0-96.0); MONO # 0.3 10^3/uL (0.0-0.8); MONO % 3.1 % (0.0-5.0); NEUTROPHILS # 9.7 10^3/uL (1.5-8.5); NEUTROPHILS % 89.3 % (36.0-66.0); PLATELET COUNT, AUTOMATED 202 10^3/uL (150-450); RED BLOOD COUNT 4.18 10^6/uL (4.00-5.40); WHITE BLOOD COUNT 10.9 10^3/uL (4.0-10.0)
[2020-07-04 06:43] LABS: INR 1.8; PROTHROMBIN TIME 21.3 SECONDS (12.5-14.3)
[2020-07-04 06:54] LABS: ALBUMIN 2.4 GM/DL (3.2-5.2); BILIRUBIN,DIRECT 0.1 MG/DL (0.0-0.2); BILIRUBIN,TOTAL 0.2 MG/DL (0.2-1.0); C REACTIVE PROTEIN QUANTITATIV 0.8 MG/DL (0.00-0.30); CALCIUM LEVEL 8.6 MG/DL (8.8-10.2); CREATININE FOR GFR 1.72 MG/DL (0.55-1.30); GLOMERULAR FILTRATION RATE 30.3 (>32); MAGNESIUM LEVEL 1.9 MG/DL (1.8-2.4); POTASSIUM SERUM 4.8 MEQ/L (3.5-5.1); TOTAL PROTEIN 6.6 GM/DL (6.4-8.2)
[2020-07-04] MEDS: SUCRALFATE 1 GM TAB PO SCH ×4 (10:39→21:00)
[2020-07-04] MEDS: DOCUSATE SODIUM 100MG CAPSULE PO SCH ×2 (11:06→21:56)
[2020-07-04] MEDS: VITAMIN D 1,000 INTERNATIONAL UNITS TABLET PO SCH (11:06)
[2020-07-04] MEDS: CALCITRIOL 0.25 MCG CAP (S0169) PO SCH (11:06)
[2020-07-04] MEDS: predniSONE 20 MG TAB PO SCH (11:06)
[2020-07-04] MEDS: MEMANTINE 5MG TABLET (NAMENDA) PO SCH ×2 (11:06→21:55)
[2020-07-04] MEDS: levETIRAcetam 250MG TABLET (KEPPRA) PO SCH ×2 (11:07→21:56)
[2020-07-04] MEDS: OMEPRAZOLE 20 MG CAP PO SCH (11:07)
--- NOTE | 2020-07-04 11:15 | IPNPDOC ---
Date Seen The patient was seen on 07/04/20. Progress Note SUBJECTIVE: Patient seen and examined at bedside this morning. She is doing well. Appears comfortable in bed. Denies fevers, chills, nausea, vomiting, diarrhea, chest pain, shortness of breath. Patient had repeat, potassium 07/03 which came back positive. PT worked with patient on 1221 but patient noted to desaturate on exertion significantly. OBJECTIVE PHYSICAL EXAMINATION: VITAL SIGNS: please see below General: NAD, comfortable HEENT: PERRLA, EOMI, sclerae clear Neck: supple, normal ROM, no JVD Respiratory: lungs CTAB, no wheeze, no rales, no crackles CVS: RRR, normal S1, S2, no murmurs Abdo: soft, no masses, no hepatosplenomegaly, BS+, no rebound tenderness Extremities: no edema, pulses 2+ MSK: no joint deformities, normal ROM Neuro: no focal neuro deficits, moving all 4 extremities, CN2-12 intact. Strength 5/5 in all 4 extremities. No nystagmus. Psych: calm, cooperative, AAO x 3 LABORATORY DATA, IMAGING STUDIES, MICROBIOLOGY: Please see below. Echocardiogram: . DVT prophylaxis ordered?: on coumadin ASSESSMENT AND PLAN: 79-year-old female with a PMHx of HTN, A. fib (s/p Cardioversion x3, on Coumadin), Hypothyroidism, CKD3, Iron deficiency anemia, Hx of C. diff, Hx of Early Alzheimers who presented to the ER with complaints of left-sided weakness.Patient was in the emergency room on 06/12 for persistent diarrhea and was sent home after she had stable vital signs and lab work. Patient presented again to the emergency room after her daughter who was visiting her had noticed left-sided weakness. Patient denies any specific left- sided weakness. Patient reports that she felt generalized weakness. Upon arrival to emergency room, patient did not have any weakness. No tPA was administered because she had full resolution of her symptoms upon arrival to ER. Patient's hospital course was complicated after she became hypoxic, which was thought to be secondary to COVID19 pneumonia versus fluid overload. PROBLEMS: #Acute hypoxic respiratory failure: 2/2 covid-19 infection. Improved. On 2L NC. Prednisone taper. Continues to desaturate on exertion. #Covid-19 infection: incentive spirometry/acapella. Contact/droplet precautions. Completed course of levaquin. Procalcitonin negative. #L sided weakness: No focal deficits on physical exam. CT head no acute abnormalities. C/w AC coumadin, dose increased to 10 mg daily. Trend INR. ASA/lipitor. #Seizures: on 06/27, tonic clonic, L side involvement. C/w keppra. Follow up with neurology outpatient. EEG outpatient. #Orthostatic hypotension: continues to be symptomatic, noted on PT exam on 07/03. VIKAS wraps. Midodrine. Cortisol level. Prednisone taper s/p prolonged dexamethasone duration. #Chronic atrial fibrillation: rate controlled. Coumadin for AC. INR 1.8, dose increased from 7.5 mg daily to 10 mg daily on 07/03. #Thrombocytopenia: no active bleeding #hypothyroidism: c/w levothyroxine #CKD 3: Cr at baseline #Dementia: c/w memantine #hx of early Alzheimer's #hx of c.diff #Iron def anemia: hgb at baseline #GERD: PPI, carafate DVT ppx: AC with coumadin. Dispo: c/w PT / OT. Repeat COVID is positive on 07/03. Per PFS, patient's cannot be transfered to subacute rehab or assisted living facility if covid test is positive. Need a negative covid test before discharge. [facility]&O Vital Signs Date Time Temp Pulse Resp B/P (MAP) Pulse Ox O2 Delivery O2 Flow Rate FiO2 07/04/20 06:00 97.9 81 20 123/72 (89) 89 Nasal Cannula 2.0 06/30/20 10:30 100 I&O- Last 24 Hours up to 6 AM0 07/04/20 06:00 Intake Total 570 ml Output Total 300 ml Balance 270 ml Laboratory Data 24H LABS Laboratory Tests 2 07/03/20 12:20: Coronavirus (COVID-19)(PCR) POSITIVEA 07/04/20 06:00: Immature Granulocyte % (Auto) 0.7, Neutrophils (%) (Auto) 89.3H, Lymphocytes (%) (Auto) 6.6L, Monocytes (%) (Auto) 3.1, Eosinophils (%) (Auto) 0.1, Basophils (%) (Auto) 0.2, Neutrophils # (Auto) 9.7H, Lymphocytes # (Auto) 0.7L, Monocytes # (Auto) 0.3, Eosinophils # (Auto) 0.0, Basophils # (Auto) 0.0, Nucleated Red Blood Cells % (auto) 0.0, Prothrombin Time 21.3H, Prothromb Time International Ratio 1.80, Anion Gap 4L, Glomerular Filtration Rate 30.3L, Calcium Level 8.6L, Magnesium Level 1.9, Ferritin 676H, Total Bilirubin 0.2, Direct Bilirubin 0.1, Aspartate Amino Transf (AST/SGOT) 20, Alanine Aminotransferase (ALT/SGPT) 20, Alkaline Phosphatase 82, C-Reactive Protein, Quantitative 0.80H, Total Protein 6.6, Albumin 2.4L, Albumin/Globulin Ratio 0.6L CBC/BMP Laboratory Tests 07/04/20 06:00 CHAS GARLAND MD Jul 04, 2020 11:15
[2020-07-04 14:00] VITALS: BP 103/60
[2020-07-04] MEDS: WARFARIN SOD 5MG TAB PO SCH (18:45)
[2020-07-04] MEDS: PRAVASTATIN 20 MG TAB PO SCH (21:56)
[2020-07-04 22:00] VITALS: BP 108/69
[2020-07-05 06:00] VITALS: BP 148/85
[2020-07-05] MEDS: LEVOTHYROXINE 88MCG TABLET (0.088 MG) PO SCH (06:02)
[2020-07-05] MEDS: MIDODRINE 2.5 MG TAB PO SCH ×2 (06:02→17:52)
[2020-07-05 06:20] LABS: BASO % 0.2 % (0.0-1.0); EOS # 0.1 10^3/uL (0.0-0.5); EOS % 1.2 % (0.0-3.0); HEMATOCRIT 37.6 % (36.0-47.0); HEMOGLOBIN 11.8 g/dl (12.0-15.5); LYMPH # 1.1 10^3/uL (1.5-5.0); LYMPH % 9.6 % (24.0-44.0); MEAN CORPUSCULAR HEMOGLOBIN 29.5 pg (27.0-33.0); MEAN CORPUSCULAR HGB CONC 31.4 g/dl (32.0-36.5); MONO # 0.7 10^3/uL (0.0-0.8); MONO % 5.9 % (0.0-5.0); NEUTROPHILS # 9.3 10^3/uL (1.5-8.5); NEUTROPHILS % 82.1 % (36.0-66.0); PLATELET COUNT, AUTOMATED 201 10^3/uL (150-450); WHITE BLOOD COUNT 11.4 10^3/uL (4.0-10.0)
[2020-07-05 06:33] LABS: INR 2.48; PROTHROMBIN TIME 27.4 SECONDS (12.5-14.3)
[2020-07-05 06:58] LABS: ALBUMIN 2.2 GM/DL (3.2-5.2); BILIRUBIN,DIRECT 0.1 MG/DL (0.0-0.2); BILIRUBIN,TOTAL 0.2 MG/DL (0.2-1.0); C REACTIVE PROTEIN QUANTITATIV 0.41 MG/DL (0.00-0.30); CALCIUM LEVEL 8.8 MG/DL (8.8-10.2); CREATININE FOR GFR 1.66 MG/DL (0.55-1.30); GLOMERULAR FILTRATION RATE 31.6 (>32); MAGNESIUM LEVEL 1.9 MG/DL (1.8-2.4); POTASSIUM SERUM 4.9 MEQ/L (3.5-5.1); TOTAL PROTEIN 5.9 GM/DL (6.4-8.2)
[2020-07-05] MEDS: SUCRALFATE 1 GM TAB PO SCH ×4 (07:30→21:00)
[2020-07-05] MEDS: CALCITRIOL 0.25 MCG CAP (S0169) PO SCH (08:37)
[2020-07-05] MEDS: MEMANTINE 5MG TABLET (NAMENDA) PO SCH ×2 (08:37→22:24)
[2020-07-05] MEDS: OMEPRAZOLE 20 MG CAP PO SCH (08:37)
[2020-07-05] MEDS: predniSONE 20 MG TAB PO SCH (08:37)
[2020-07-05] MEDS: levETIRAcetam 250MG TABLET (KEPPRA) PO SCH ×2 (08:37→22:24)
[2020-07-05] MEDS: DOCUSATE SODIUM 100MG CAPSULE PO SCH ×2 (08:38→22:24)
[2020-07-05] MEDS: VITAMIN D 1,000 INTERNATIONAL UNITS TABLET PO SCH (08:38)
[2020-07-05 10:12] VITALS: BP_SYST 128; BP_SYST 148; BP_DIAS 85
[2020-07-05 14:00] VITALS: BP 121/71
--- NOTE | 2020-07-05 15:50 | IPNPDOC ---
Date Seen The patient was seen on 07/05/20. Progress Note SUBJECTIVE: Patient seen and examined at bedside this morning. She is doing well. Appears comfortable in bed. Denies fevers, chills, nausea, vomiting, diarrhea, chest pain, shortness of breath. Patient had repeat, potassium 07/03 which came back positive. PT worked with patient on 1221 but patient noted to desaturate on exertion significantly. OBJECTIVE PHYSICAL EXAMINATION: VITAL SIGNS: please see below General: NAD, comfortable HEENT: PERRLA, EOMI, sclerae clear Neck: supple, normal ROM, no JVD Respiratory: lungs CTAB, no wheeze, no rales, no crackles CVS: RRR, normal S1, S2, no murmurs Abdo: soft, no masses, no hepatosplenomegaly, BS+, no rebound tenderness Extremities: no edema, pulses 2+ MSK: no joint deformities, normal ROM Neuro: no focal neuro deficits, moving all 4 extremities, CN2-12 intact. Strength 5/5 in all 4 extremities. No nystagmus. Psych: calm, cooperative, AAO x 3 LABORATORY DATA, IMAGING STUDIES, MICROBIOLOGY: Please see below. Echocardiogram: . DVT prophylaxis ordered?: on coumadin ASSESSMENT AND PLAN: 79-year-old female with a PMHx of HTN, A. fib (s/p Cardioversion x3, on Coumadin), Hypothyroidism, CKD3, Iron deficiency anemia, Hx of C. diff, Hx of Early Alzheimers who presented to the ER with complaints of left-sided weakness.Patient was in the emergency room on 06/12 for persistent diarrhea and was sent home after she had stable vital signs and lab work. Patient presented again to the emergency room after her daughter who was visiting her had noticed left-sided weakness. Patient denies any specific left- sided weakness. Patient reports that she felt generalized weakness. Upon arrival to emergency room, patient did not have any weakness. No tPA was administered because she had full resolution of her symptoms upon arrival to ER. Patient's hospital course was complicated after she became hypoxic, which was thought to be secondary to COVID19 pneumonia versus fluid overload. PROBLEMS: #Acute hypoxic respiratory failure: 2/2 covid-19 infection. Improved. On 2L NC. Prednisone taper. Continues to desaturate on exertion, although performance has improver per PT. O2 remained manly 80s 90s, with brief period of 70s on 4L. #Covid-19 infection: incentive spirometry/acapella. Contact/droplet precautions. Completed course of levaquin. Procalcitonin negative. #L sided weakness: No focal deficits on physical exam. CT head no acute abnormalities. C/w AC coumadin, dose increased to 10 mg daily. Trend INR. ASA/lipitor. #Seizures: on 06/27, tonic clonic, L side involvement. C/w keppra. Follow up with neurology outpatient. EEG outpatient. #Orthostatic hypotension: continues to be symptomatic. VIKAS wraps. Cortisol level. Prednisone taper s/p prolonged dexamethasone duration. Increase midodrine to 2.5 mg TID. #Chronic atrial fibrillation: rate controlled. INR therapeutic, 2.48. Dose was increased to 10 mg daily. #Thrombocytopenia: no active bleeding #hypothyroidism: c/w levothyroxine #CKD 3: Cr at baseline #Dementia: c/w memantine #hx of early Alzheimer's #hx of c.diff #Iron def anemia: hgb at baseline #GERD: PPI, carafate DVT ppx: AC with coumadin. Dispo: c/w PT / OT. Repeat COVID is positive on 07/03. Per PFS, patient's cannot be transferred to subacute rehab or assisted living facility if covid test is positive. Need a negative covid test before discharge. VS, I&O, 24H, Fishbone Vital Signs/I&O Vital Signs Date Time Temp Pulse Resp B/P (MAP) Pulse Ox O2 Delivery O2 Flow Rate FiO2 07/05/20 14:00 97.6 65 16 121/71 (88) 87 Nasal Cannula 5.0 06/30/20 10:30 100 I&O- Last 24 Hours up to 6 AM 07/05/20 06:00 Intake Total 600 ml Output Total 0 ml Balance 600 ml Laboratory Data 24H LABS Laboratory Tests 2 07/05/20 06:05: Immature Granulocyte % (Auto) 1.0, Neutrophils (%) (Auto) 82.1H, Lymphocytes (%) (Auto) 9.6L, Monocytes (%) (Auto) 5.9H, Eosinophils (%) (Auto) 1.2, Basophils (%) (Auto) 0.2, Neutrophils # (Auto) 9.3H, Lymphocytes # (Auto) 1.1L, Monocytes # (Auto) 0.7, Eosinophils # (Auto) 0.1, Basophils # (Auto) 0.0, Nucleated Red Bl ood Cells % (auto) 0.0, Prothrombin Time 27.4H, Prothromb Time International Ratio 2.48, Anion Gap 8, Glomerular Filtration Rate 31.6L, Calcium Level 8.8, Magnesium Level 1.9, Ferritin 620H, Total Bilirubin 0.2, Direct Bilirubin 0.1, Aspartate Amino Transf (AST/SGOT) 22, Alanine Aminotransferase (ALT/SGPT) 20, Alkaline Phosphatase 85, C-Reactive Protein, Quantitative 0.41H, Total Protein 5.9L, Albumin 2.2L, Albumin/Globulin Ratio 0.6L CBC/BMP Laboratory Tests 07/05/20 06:05 CHAS GARLAND MD Jul 05, 2020 15:50
[2020-07-05 17:03] LABS: INR 2.42; PROTHROMBIN TIME 26.9 SECONDS (12.5-14.3)
[2020-07-05] MEDS: WARFARIN SOD 5MG TAB PO SCH (17:54)
[2020-07-05 22:00] VITALS: BP 122/72
[2020-07-05] MEDS: PRAVASTATIN 20 MG TAB PO SCH (22:24)
[2020-07-06] MEDS: LEVOTHYROXINE 88MCG TABLET (0.088 MG) PO SCH (05:34)
[2020-07-06] MEDS: MIDODRINE 2.5 MG TAB PO SCH ×3 (05:34→17:13)
[2020-07-06 06:00] VITALS: BP 134/76
[2020-07-06 06:25] LABS: BASO % 0.1 % (0.0-1.0); EOS % 0.1 % (0.0-3.0); HEMATOCRIT 37.7 % (36.0-47.0); HEMOGLOBIN 11.8 g/dl (12.0-15.5); LYMPH # 0.6 10^3/uL (1.5-5.0); LYMPH % 6.1 % (24.0-44.0); MEAN CORPUSCULAR HEMOGLOBIN 29.6 pg (27.0-33.0); MEAN CORPUSCULAR HGB CONC 31.3 g/dl (32.0-36.5); MEAN CORPUSCULAR VOLUME 94.5 fl (80.0-96.0); MONO # 0.3 10^3/uL (0.0-0.8); NEUTROPHILS # 9.4 10^3/uL (1.5-8.5); NEUTROPHILS % 89.6 % (36.0-66.0); PLATELET COUNT, AUTOMATED 213 10^3/uL (150-450); RED BLOOD COUNT 3.99 10^6/uL (4.00-5.40); WHITE BLOOD COUNT 10.5 10^3/uL (4.0-10.0)
[2020-07-06 06:59] LABS: ALBUMIN 2.4 GM/DL (3.2-5.2); BILIRUBIN,TOTAL 0.3 MG/DL (0.2-1.0); CREATININE FOR GFR 1.65 MG/DL (0.55-1.30); GLOMERULAR FILTRATION RATE 31.8 (>32); MAGNESIUM LEVEL 1.9 MG/DL (1.8-2.4); POTASSIUM SERUM 4.9 MEQ/L (3.5-5.1); TOTAL PROTEIN 6.5 GM/DL (6.4-8.2)
[2020-07-06] MEDS: SUCRALFATE 1 GM TAB PO SCH ×5 (08:51→22:32)
[2020-07-06] MEDS: predniSONE 20 MG TAB PO SCH (08:51)
[2020-07-06] MEDS: CALCITRIOL 0.25 MCG CAP (S0169) PO SCH (08:52)
[2020-07-06] MEDS: levETIRAcetam 250MG TABLET (KEPPRA) PO SCH ×2 (08:52→22:33)
[2020-07-06] MEDS: MEMANTINE 5MG TABLET (NAMENDA) PO SCH ×2 (08:52→22:32)
[2020-07-06] MEDS: VITAMIN D 1,000 INTERNATIONAL UNITS TABLET PO SCH (08:52)
[2020-07-06] MEDS: OMEPRAZOLE 20 MG CAP PO SCH (08:52)
[2020-07-06] MEDS: DOCUSATE SODIUM 100MG CAPSULE PO SCH ×2 (08:52→22:33)
[2020-07-06 14:00] VITALS: BP_SYST 118; BP_SYST 122; BP_DIAS 70; BP_DIAS 77
--- NOTE | 2020-07-06 14:08 | IPNPDOC ---
Date Seen The patient was seen on 07/06/20. Progress Note SUBJECTIVE: Patient seen and examined at bedside this morning. She is doing well. Appears comfortable sitting upright in bed. States breathing has improved. Continues to be dizzy and orthostatic on standing. OBJECTIVE PHYSICAL EXAMINATION: VITAL SIGNS: please see below General: NAD, comfortable HEENT: PERRLA, EOMI, sclerae clear Neck: supple, normal ROM, no JVD Respiratory: lungs CTAB, no wheeze, no rales, no crackles CVS: RRR, normal S1, S2, no murmurs Abdo: soft, no masses, no hepatosplenomegaly, BS+, no rebound tenderness Extremities: no edema, pulses 2+ MSK: no joint deformities, normal ROM Neuro: no focal neuro deficits, moving all 4 extremities, CN2-12 intact. Strength 5/5 in all 4 extremities. No nystagmus. Psych: calm, cooperative, AAO x 3 LABORATORY DATA, IMAGING STUDIES, MICROBIOLOGY: Please see below. Echocardiogram: . DVT prophylaxis ordered?: on coumadin ASSESSMENT AND PLAN: 79-year-old female with a PMHx of HTN, A. fib (s/p Cardioversion x3, on Coumadin), Hypothyroidism, CKD3, Iron deficiency anemia, Hx of C. diff, Hx of Early Alzheimers who presented to the ER with complaints of left-sided weakness.Patient was in the emergency room on 06/12 for persistent diarrhea and was sent home after she had stable vital signs and lab work. Patient presented again to the emergency room after her daughter who was visiting her had noticed left-sided weakness. Patient denies any specific left- sided weakness. Patient reports that she felt generalized weakness. Upon arrival to emergency room, patient did not have any weakness. No tPA was administered because she had full resolution of her symptoms upon arrival to ER. Patient's hospital course was complicated after she became hypoxic, which was thought to be secondary to COVID19 pneumonia versus fluid overload. Ongoing orthostasis. PROBLEMS: #Acute hypoxic respiratory failure: 2/2 covid-19 infection. Increased O2 to 4LPM. Prednisone taper. Continues to desaturate on exertion, although performan ce has improved per PT. Certainly increased O2 requirement could indicate a PE, howevere, patient is anticoagulated on warfarin. #Covid-19 infection: incentive spirometry/acapella. Contact/droplet precautions. Completed course of levaquin. Procalcitonin negative. #L sided weakness: No focal deficits on physical exam. CT head no acute abnormalities. C/w AC coumadin, dose increased to 10 mg daily. Trend INR. ASA/lipitor. #Seizures: on 06/27, tonic clonic, L side involvement. C/w keppra. Follow up with neurology outpatient. EEG outpatient. #Orthostatic hypotension: continues to be symptomatic. VIKAS wraps. Cortisol level. Prednisone taper s/p prolonged dexamethasone duration. Increase midodrine to 2.5 mg TID. #Chronic atrial fibrillation: rate controlled. INR therapeutic, 2.48. Dose was increased to 10 mg daily. Check INR 07/06/ #Thrombocytopenia: no active bleeding #hypothyroidism: c/w levothyroxine #CKD 3: Cr at baseline #Dementia: c/w memantine #hx of early Alzheimer's #hx of c.diff #Iron def anemia: hgb at baseline #GERD: PPI, carafate DVT ppx: AC with coumadin. Dispo: c/w PT / OT. Repeat COVID is positive on 07/03. Per PFS, patient's cannot be transferred to subacute rehab or assisted living facility if covid test is positive. Need a negative covid test before discharge. VS, I&O, 24H, Fishbone Vital Signs/I&O Vital Signs Date Time Temp Pulse Resp B/P (MAP) Pulse Ox O2 Delivery O2 Flow Rate FiO2 07/06/20 08:00 4.0 07/06/20 06:00 97.4 69 20 134/76 (95) 91 Nasal Cannula 06/30/20 10:30 100 I&O- Last 24 Hours up to 6 AM 07/06/20 06:00 Intake Total 2005 ml Output Total 0 ml Balance 2005 ml Laboratory Data 24H LABS Laboratory Tests 2 07/05/20 16:25: Prothrombin Time 26.9H, Prothromb Time International Ratio 2.42 07/06/20 06:06: Immature Granulocyte % (Auto) 1.1, Neutrophils (%) (Auto) 89.6H, Lymphocytes (%) (Auto) 6.1L, Monocytes (%) (Auto) 3.0, Eosinophils (%) (Auto) 0.1, Basophils (%) (Auto) 0.1, Neutrophils # (Auto) 9.4H, Lymphocytes # (Auto) 0.6L, Monocytes # ( Auto) 0.3, Eosinophils # (Auto) 0.0, Basophils # (Auto) 0.0, Nucleated Red Blood Cells % (auto) 0.0, Anion Gap 7L, Glomerular Filtration Rate 31.8L, Calcium Level 10.0, Magnesium Level 1.9, Total Bilirubin 0.3, Aspartate Amino Transf (AST/SGOT) 24, Alanine Aminotransferase (ALT/SGPT) 23, Alkaline Phosphatase 97, Total Protein 6.5, Albumin 2.4L, Albumin/Globulin Ratio 0.6L CBC/BMP Laboratory Tests 07/06/20 06:06 CHAS GARLAND MD Jul 06, 2020 14:08
--- NOTE | 2020-07-06 14:49 | REP ---
INDICATION: hypoxia COMPARISON: 06/16/2020, 06/02/2019 TECHNIQUE: Portable AP view of the chest FINDINGS: The lung silver demonstrate diffuse bilateral alveolar and interstitial infiltrates versus chronic COPD/fibrosis when compared with 06/02/2019 which appear normal. However, the lung silver demonstrate relatively considerable improvement as compared with 06/16/2020. No effusion. No pneumothorax. Mediastinum and cardiac silhouette are grossly within normal limits. Skeletal structures are intact. Clinical correlation is required. IMPRESSION: Diffuse interstitial and alveolar infiltrative pattern suggests chronic change with multifocal pneumonia which appears relatively improved as compared to 06/16/2020 but significantly pathologic when compared to normal chest x-ray dated 06/02/2019. Correlation is required. <Electronically signed by Gallo Bronson > 07/06/20 [id number]
[2020-07-06 15:20] LABS: INR 2.76; PROTHROMBIN TIME 29.8 SECONDS (12.5-14.3)
[2020-07-06] MEDS: WARFARIN SOD 5MG TAB PO SCH (17:13)
[2020-07-06] MEDS: COMBIVENT RESPIMAT 100-20MCG INHALER 4GM INH SCH (19:40)
[2020-07-06] MEDS ORDERED: IPRATROPIUM 0.5MG/ALBUTEROL 2.5MG INH SOL UD 3ML (DUONEB) NEB SCH (20:00)
[2020-07-06 22:00] VITALS: BP 144/61
[2020-07-06] MEDS: PRAVASTATIN 20 MG TAB PO SCH (22:32)
[2020-07-07] MEDS: COMBIVENT RESPIMAT 100-20MCG INHALER 4GM INH SCH ×4 (01:08→19:43)
[2020-07-07] MEDS: LEVOTHYROXINE 88MCG TABLET (0.088 MG) PO SCH (05:47)
[2020-07-07] MEDS: MIDODRINE 2.5 MG TAB PO SCH ×3 (05:47→17:44)
[2020-07-07 06:00] VITALS: BP 149/89
[2020-07-07 06:42] LABS: BASO % 0.1 % (0.0-1.0); HEMATOCRIT 37.4 % (36.0-47.0); HEMOGLOBIN 11.6 g/dl (12.0-15.5); LYMPH # 0.7 10^3/uL (1.5-5.0); MEAN CORPUSCULAR HEMOGLOBIN 29.1 pg (27.0-33.0); MEAN CORPUSCULAR VOLUME 93.7 fl (80.0-96.0); MONO # 0.4 10^3/uL (0.0-0.8); MONO % 3.1 % (0.0-5.0); NEUTROPHILS # 10.6 10^3/uL (1.5-8.5); NEUTROPHILS % 89.9 % (36.0-66.0); PLATELET COUNT, AUTOMATED 225 10^3/uL (150-450); RED BLOOD COUNT 3.99 10^6/uL (4.00-5.40); WHITE BLOOD COUNT 11.8 10^3/uL (4.0-10.0)
[2020-07-07 07:01] LABS: INR 3.21; PROTHROMBIN TIME 33.6 SECONDS (12.5-14.3)
[2020-07-07 07:12] LABS: ALBUMIN 2.4 GM/DL (3.2-5.2); BILIRUBIN,TOTAL 0.2 MG/DL (0.2-1.0); CALCIUM LEVEL 9.4 MG/DL (8.8-10.2); CREATININE FOR GFR 1.55 MG/DL (0.55-1.30); GLOMERULAR FILTRATION RATE 34.2 (>32); MAGNESIUM LEVEL 1.9 MG/DL (1.8-2.4); POTASSIUM SERUM 4.4 MEQ/L (3.5-5.1); TOTAL PROTEIN 6.5 GM/DL (6.4-8.2)
[2020-07-07] MEDS: SUCRALFATE 1 GM TAB PO SCH ×4 (08:35→20:52)
[2020-07-07] MEDS: predniSONE 20 MG TAB PO SCH (08:38)
[2020-07-07] MEDS: levETIRAcetam 250MG TABLET (KEPPRA) PO SCH ×2 (08:38→20:52)
[2020-07-07] MEDS: DOCUSATE SODIUM 100MG CAPSULE PO SCH ×2 (08:38→20:50)
[2020-07-07] MEDS: OMEPRAZOLE 20 MG CAP PO SCH (08:38)
[2020-07-07] MEDS: MEMANTINE 5MG TABLET (NAMENDA) PO SCH ×2 (08:38→22:19)
[2020-07-07] MEDS: VITAMIN D 1,000 INTERNATIONAL UNITS TABLET PO SCH (08:38)
[2020-07-07] MEDS: CALCITRIOL 0.25 MCG CAP (S0169) PO SCH (08:38)
--- NOTE | 2020-07-07 09:42 | IPNPDOC ---
Date Seen The patient was seen on 07/07/20. Progress Note SUBJECTIVE: Patient seen and examined at bedside this morning. Appears comfortable in bed. More altered today, disoriented to date. Pleasant, cooperative. Increasing oxygen requirement, now 6LPM to maintain 90% saturation. OBJECTIVE PHYSICAL EXAMINATION: VITAL SIGNS: please see below General: NAD, comfortable HEENT: PERRLA, EOMI, sclerae clear Neck: supple, normal ROM, no JVD Respiratory: crackles in bilateral lung bases. CVS: RRR, normal S1, S2, no murmurs Abdo: soft, no masses, no hepatosplenomegaly, BS+, no rebound tenderness Extremities: 2+ edema in bilateral LEs. MSK: no joint deformities, normal ROM Neuro: no focal neuro deficits, moving all 4 extremities, CN2-12 intact. Stren gth 5/5 in all 4 extremities. No nystagmus. Psych: calm, cooperative, AAO x 3 LABORATORY DATA, IMAGING STUDIES, MICROBIOLOGY: Please see below. DVT prophylaxis ordered?: on coumadin ASSESSMENT AND PLAN: 79-year-old female with a PMHx of HTN, A. fib (s/p Cardioversion x3, on Coumadin), Hypothyroidism, CKD3, Iron deficiency anemia, Hx of C. diff, Hx of Early Alzheimers who presented to the ER with complaints of left-sided weakness.Patient was in the emergency room on 06/12 for persistent diarrhea and was sent home after she had stable vital signs and lab work. Patient presented again to the emergency room after her daughter who was visiting her had noticed left-sided weakness. Patient denies any specific left- sided weakness. Patient reports that she felt generalized weakness. Upon arrival to emergency room, patient did not have any weakness. No tPA was administered because she had full resolution of her symptoms upon arrival to ER. Patient's hospital course was complicated after she became hypoxic, which was thought to be secondary to COVID19 pneumonia versus fluid overload. Ongoing orthostasis. PROBLEMS: #Acute hypoxic respiratory failure: 2/2 covid-19 infection. Increased O2 to 6LPM. Stopped prednisone. Resume dexamethasone 6 mg IV BID. Acapella. Incentive spirometer. OOB to Chair. CT chest 07/07: pna vs atelectasis. Will defer abx as negative procalcitonin. No fever. No leukocytosis. No cough. Transfer to PCU. #Pulmonary edema: Crackles bilaterally. Perhaps secondary to HFpEF. Trial lasix 20 mg IV TID. Monitor I&Os. Daily weights. #L sided weakness: No focal deficits on physical exam. CT head no acute abnormalities. C/w AC coumadin, dose increased to 10 mg daily. ASA/lipitor. #Seizures: on 06/27, tonic clonic, L side involvement. C/w keppra. Follow up with neurology outpatient. EEG outpatient. #Orthostatic hypotension: continues to be symptomatic. VIKAS wraps. Cortisol level. Prednisone taper s/p prolonged dexamethasone duration. Midodrine 2.5 mg TID. #Chronic atrial fibrillation: rate controlled. Warfarin 10 mg daily. INR 3.21 #Supratherapeutic INR: takes 10 mg daily. Increased 07/02. D/w pharmacy. Hold warfarin 07/07. Resume at 8 mg daily on 07/08. #Thrombocytopenia: no active bleeding #hypothyroidism: c/w levothyroxine #CKD 3: Cr at baseline #Dementia: c/w memantine #hx of early Alzheimer's #hx of c.diff #Iron def anemia: hgb at baseline #GERD: PPI, carafate DVT ppx: AC with coumadin. Dispo: c/w PT / OT. Repeat COVID is positive on 07/03. Per PFS, patient's cannot be transferred to subacute rehab or assisted living facility if covid test is positive. Need a negative covid test before discharge. VS, I&O, 24H, Fishbone Vital Signs/I&O Vital Signs Date Time Temp Pulse Resp B/P (MAP) Pulse Ox O2 Delivery O2 Flow Rate FiO2 07/07/20 06:00 98.6 69 18 149/89 (109) 90 Nasal Cannula 6.0 I&O- Last 24 Hours up to 6 AM 07/07/20 06:00 Intake Total 960 ml Output Total 0 ml Balance 960 ml Laboratory Data 24H LABS Laboratory Tests 2 07/06/20 14:44: Prothrombin Time 29.8H, Prothromb Time International Ratio 2.76 07/06/20 18:03: Procalcitonin <0.05 07/07/20 06:23: Prothrombin Time 33.6H, Prothromb Time International Ratio 3.21, Immature Granulocyte % (Auto) 0.9, Neutrophils (%) (Auto) 89.9H, Lymphocytes (%) (Auto) 6.0L, Monocytes (%) (Auto) 3.1, Eosinophils (%) (Auto) 0.0, Basophils (%) (Auto) 0.1, Neutrophils # (Auto) 10.6H, Lymphocytes # (Auto) 0.7L, Monocytes # (Auto) 0.4, Eosinophils # (Auto) 0.0, Basophils # (Auto) 0.0, Nucleated Red Blood Cells % (auto) 0.0, Anion Gap 9, Glomerular Filtration Rate 34.2, Calcium Level 9.4, Magnesium Level 1.9, Total Bilirubin 0.2, Aspartate Amino Transf (AST/SGOT) 20, Alanine Aminotransferase (ALT/SGPT) 25, Alkaline Phosphatase 93, Total Protein 6.5, Albumin 2.4L, Albumin/Globulin Ratio 0.6L CBC/BMP Laboratory Tests 07/07/20 06:23 CHAS GARLAND MD Jul 07, 2020 09:42
[2020-07-07] MEDS: FUROSEMIDE 20MG/2ML VIAL (J1940) IV SCH ×2 (10:29→17:43)
[2020-07-07 13:56] LABS: ABG BASE EXCESS -2.5 (-2.0-2.0); ABG HCO3 20.8 MEQ/L (22.0-26.0); ABG O2 SATURATION 89.6 % (95.0-99.0); ABG PARTIAL PRESSURE CO2 31.6 mmHg (35.0-45.0); ABG PARTIAL PRESSURE O2 55.9 mmHg (75.0-100.0); ABG STANDARD HCO3 22.2 MEQ/L (22.0-26.0); ABG TOTAL CO2 21.8 MEQ/L (23.0-31.0); ABG pH (ARTERIAL) 7.436 UNITS (7.350-7.450)
[2020-07-07 14:00] VITALS: BP 141/81
--- NOTE | 2020-07-07 14:29 | REP ---
INDICATION: hypoxia COMPARISON: None TECHNIQUE: Axial noncontrast images from the thoracic inlet to the upper abdomen with coronal and sagittal reformations. This CT examination was performed using the following dose reduction techniques: Automated exposure control, adjustment of mA and/or kv according to the patient's size, and use of iterative reconstruction technique. FINDINGS: Diffuse chronic interstitial changes and fibrosis/scarring are noted with superimposed scattered bilateral areas of ground-glass opacity and ill-defined airspace disease suggesting multifocal pneumonia. Reactive mediastinal lymph nodes are suggested measuring up to approximately 9 mm short axis diameter. Clinical correlation is required. No effusion. No pneumothorax. Atherosclerotic changes to the thoracic aorta and coronary arteries noted along with cardiomegaly. No significant pericardial effusion. Thyroid gland is grossly normal. Surrounding musculoskeletal structures demonstrate age-related changes without acute process. Limited upper abdomen demonstrates normal bilateral adrenal glands and 4 mm nonobstructing right renal calculus. IMPRESSION: Diffuse chronic fibrosis and interstitial disease with suspected superimposed areas of acute airspace disease and ground-glass opacities. Differential diagnosis includes acute pneumonia and atelectasis. Correlation and follow-up to resolution may be warranted. <Electronically signed by Gallo Bronson > 07/07/20 [id number]
[2020-07-07 15:58] VITALS: O2SAT 91
[2020-07-07] MEDS: dexameTHASONE 4 MG/ML 1ML VIAL (J1100 PER 1MG) IV SCH (17:43)
[2020-07-07 20:00] VITALS: BP 129/79
[2020-07-07] MEDS: PRAVASTATIN 20 MG TAB PO SCH (20:53)
[2020-07-08] VITALS (19 sets, daily range): BP systolic 98–168; BP diastolic 55–98; O2SAT 72–97
[2020-07-08] MEDS: FUROSEMIDE 20MG/2ML VIAL (J1940) IV SCH ×3 (01:58→17:25)
[2020-07-08] MEDS: COMBIVENT RESPIMAT 100-20MCG INHALER 4GM INH SCH ×4 (02:00→20:41)
[2020-07-08] MEDS: LEVOTHYROXINE 88MCG TABLET (0.088 MG) PO SCH (05:39)
[2020-07-08] MEDS: MIDODRINE 2.5 MG TAB PO SCH ×3 (05:39→17:25)
[2020-07-08] MEDS: dexameTHASONE 4 MG/ML 1ML VIAL (J1100 PER 1MG) IV SCH ×2 (05:39→17:25)
[2020-07-08 06:45] LABS: BASO % 0.1 % (0.0-1.0); HEMOGLOBIN 12.9 g/dl (12.0-15.5); LYMPH # 0.7 10^3/uL (1.5-5.0); MEAN CORPUSCULAR HEMOGLOBIN 29.7 pg (27.0-33.0); MEAN CORPUSCULAR HGB CONC 31.5 g/dl (32.0-36.5); MEAN CORPUSCULAR VOLUME 94.3 fl (80.0-96.0); MONO # 0.4 10^3/uL (0.0-0.8); MONO % 3.9 % (0.0-5.0); NEUTROPHILS # 9.3 10^3/uL (1.5-8.5); NEUTROPHILS % 87.8 % (36.0-66.0); PLATELET COUNT, AUTOMATED 243 10^3/uL (150-450); RED BLOOD COUNT 4.35 10^6/uL (4.00-5.40); WHITE BLOOD COUNT 10.5 10^3/uL (4.0-10.0)
[2020-07-08 07:01] LABS: INR 3.58; PROTHROMBIN TIME 36.6 SECONDS (12.5-14.3)
[2020-07-08 07:04] LABS: D-DIMER QUANT 1325.37 ng/ml (<500)
[2020-07-08 07:08] LABS: ALBUMIN 2.7 GM/DL (3.2-5.2); ALT/SGPT 28 U/L (12-78); BILIRUBIN,TOTAL 0.5 MG/DL (0.2-1.0); BLOOD UREA NITROGEN 70 MG/DL (7-18); CALCIUM LEVEL 9.1 MG/DL (8.8-10.2); CARBON DIOXIDE LEVEL 24 MEQ/L (21-32); CHLORIDE LEVEL 105 MEQ/L (98-107); CREATININE FOR GFR 2.08 MG/DL (0.55-1.30); GLOMERULAR FILTRATION RATE 24.3 (>32); GLUCOSE, FASTING 130 MG/DL (70-100); MAGNESIUM LEVEL 1.8 MG/DL (1.8-2.4); NT-PRO BNP 3529 PG/ML (<450); POTASSIUM SERUM 4.4 MEQ/L (3.5-5.1); SODIUM LEVEL 139 MEQ/L (136-145); TROPONIN I < 0.02 NG/ML (< 0.10)
[2020-07-08] MEDS: SUCRALFATE 1 GM TAB PO SCH ×5 (07:30→20:26)
[2020-07-08] MEDS: VITAMIN D 1,000 INTERNATIONAL UNITS TABLET PO SCH (09:41)
[2020-07-08] MEDS: DOCUSATE SODIUM 100MG CAPSULE PO SCH ×2 (09:42→20:25)
[2020-07-08] MEDS: OMEPRAZOLE 20 MG CAP PO SCH (09:42)
[2020-07-08] MEDS: MEMANTINE 5MG TABLET (NAMENDA) PO SCH ×2 (09:42→20:26)
[2020-07-08] MEDS: levETIRAcetam 250MG TABLET (KEPPRA) PO SCH ×2 (09:42→20:24)
[2020-07-08] MEDS: CALCITRIOL 0.25 MCG CAP (S0169) PO SCH (09:42)
--- NOTE | 2020-07-08 13:21 | IPNPDOC ---
Date Seen The patient was seen on 07/08/20. Progress Note SUBJECTIVE: Patient seen and examined at bedside this morning. Appears comfortable in bed. More altered today, disoriented to date. Pleasant, cooperative. Increasing oxygen requirement, now 6LPM to maintain 90% saturation. OBJECTIVE PHYSICAL EXAMINATION: VITAL SIGNS: please see below General: NAD, comfortable HEENT: PERRLA, EOMI, sclerae clear Neck: supple, normal ROM, no JVD Respiratory: crackles in bilateral lung bases. CVS: RRR, normal S1, S2, no murmurs Abdo: soft, no masses, no hepatosplenomegaly, BS+, no rebound tenderness Extremities: 2+ edema in bilateral LEs. MSK: no joint deformities, normal ROM Neuro: no focal neuro deficits, moving all 4 extremities, CN2-12 intact. Stren gth 5/5 in all 4 extremities. No nystagmus. Psych: calm, cooperative, AAO x 3 LABORATORY DATA, IMAGING STUDIES, MICROBIOLOGY: Please see below. DVT prophylaxis ordered?: on coumadin ASSESSMENT AND PLAN: 79-year-old female with a PMHx of HTN, A. fib (s/p Cardioversion x3, on Coumadin), Hypothyroidism, CKD3, Iron deficiency anemia, Hx of C. diff, Hx of Early Alzheimers who presented to the ER with complaints of left-sided weakness.Patient was in the emergency room on 06/12 for persistent diarrhea and was sent home after she had stable vital signs and lab work. Patient presented again to the emergency room after her daughter who was visiting her had noticed left-sided weakness. Patient denies any specific left- sided weakness. Patient reports that she felt generalized weakness. Upon arrival to emergency room, patient did not have any weakness. No tPA was administered because she had full resolution of her symptoms upon arrival to ER. Patient's hospital course was complicated after she became hypoxic, which was thought to be secondary to COVID19 pneumonia versus fluid overload. Ongoing orthostasis. PROBLEMS: #Acute hypoxic respiratory failure: 2/2 covid-19 infection. Increased O2 to 6LPM. Stopped prednisone. Resume dexamethasone 6 mg IV BID. Acapella. Incentive spirometer. OOB to Chair. CT chest 07/07: pna vs atelectasis. Will defer abx as negative procalcitonin. No fever. No leukocytosis. No cough. Transfer to PCU. #Pulmonary edema: Crackles bilaterally. Perhaps secondary to HFpEF. Trial lasix 20 mg IV TID. Monitor I&Os. Daily weights. #L sided weakness: No focal deficits on physical exam. CT head no acute abnormalities. Coumadin. ASA/lipitor. #Seizures: on 06/27, tonic clonic, L side involvement. C/w keppra. Follow up with neurology outpatient. EEG outpatient. #Orthostatic hypotension: continues to be symptomatic. VIKAS wraps. Cortisol level. Midodrine 2.5 mg TID. #Chronic atrial fibrillation: rate controlled. Warfarin 10 mg daily. INR 3.21 #Supratherapeutic INR: takes 10 mg daily. Increased 07/02. D/w pharmacy. Hold warfarin 07/07. Resume at 8 mg daily on 07/09 as INR remains supratherapeutic. #Thrombocytopenia: no active bleeding #hypothyroidism: c/w levothyroxine #CKD 3: Cr at baseline #Dementia: c/w memantine #hx of early Alzheimer's #hx of c.diff #Iron def anemia: hgb at baseline #GERD: PPI, carafate DVT ppx: AC with coumadin. Dispo: c/w PT / OT. Repeat COVID is positive on 07/03. Per PFS, patient's cannot be transferred to subacute rehab or assisted living facility if covid test is positive. Need a negative covid test before discharge. VS, I&O, 24H, [facility] Vital Signs/I&O Vital Signs Date Time Temp Pulse Resp B/P (MAP) Pulse Ox O2 Delivery O2 Flow Rate FiO2 07/08/20 11:29 97.7 72 18 131/79 (96) 94 Nasal Cannula 07/08/20 04:00 6.0 I&O- Last 24 Hours up to 6 AM 07/08/20 05:59 Intake Total 530 ml Output Total 450 ml Balance 80 ml Laboratory Data 24H LABS Laboratory Tests 2 07/07/20 13:42: Blood Gas Bicarbonate Standard 22.2, Arterial Blood pH 7.436, Arterial Blood Partial Pressure CO2 31.6L, Arterial Blood Partial Pressure O2 55.9L, Arterial Blood Total CO2 21.8L, Arterial Blood HCO3 20.8L, Arterial Blood Base Excess - 2.5L, Arterial Blood Oxygen Saturation 89.6L 07/08/20 06:24: Anion Gap 10, Glomerular Filtration Rate 24.3L, Calcium Level 9.1, Magnesium Level 1.8, Total Bilirubin 0.5#, Aspartate Amino Transf (AST/SGOT) 25, Alanine Aminotransferase (ALT/SGPT) 28, Alkaline Phosphatase 88, Troponin I < 0.02, C- Reactive Protein, Quantitative 0.30, MG-Yvc-Y-Type Natriuretic Peptide 3529H, Total Protein 7.0, Albumin 2.7L, Albumin/Globulin Ratio 0.6L 07/08/20 06:25: Immature Granulocyte % (Auto) 1.2, Neutrophils (%) (Auto) 87.8H, Lymphocytes (%) (Auto) 7.0L, Monocytes (%) (Auto) 3.9, Eosinophils (%) (Auto) 0.0, Basophils (%) (Auto) 0.1, Neutrophils # (Auto) 9.3H, Lymphocytes # (Auto) 0.7L, Monocytes # (Auto) 0.4, Eosinophils # (Auto) 0.0, Basophils # (Auto) 0.0, Nucleated Red Blood Cells % (auto) 0.0, Prothrombin Time 36.6H, Prothromb Time International Ratio 3.58, Activated Partial Thromboplast Time 37.0, Fibrinogen 384, D-Dimer, Quantitative 1325.37H CBC/BMP Laboratory Tests 07/08/20 06:24 07/08/20 06:25 CHAS GARLAND MD Jul 08, 2020 13:21
[2020-07-08] MEDS: PRAVASTATIN 20 MG TAB PO SCH (20:26)
[2020-07-09] VITALS (14 sets, daily range): BP systolic 121–149; BP diastolic 69–77; O2SAT 88–97
[2020-07-09] MEDS: COMBIVENT RESPIMAT 100-20MCG INHALER 4GM INH SCH ×4 (02:00→20:57)
[2020-07-09] MEDS: FUROSEMIDE 20MG/2ML VIAL (J1940) IV SCH (02:56)
[2020-07-09] MEDS: dexameTHASONE 4 MG/ML 1ML VIAL (J1100 PER 1MG) IV SCH ×2 (05:17→17:42)
[2020-07-09] MEDS: LEVOTHYROXINE 88MCG TABLET (0.088 MG) PO SCH (05:18)
[2020-07-09] MEDS: MIDODRINE 2.5 MG TAB PO SCH ×3 (05:18→17:41)
[2020-07-09 06:16] LABS: BASO % 0.1 % (0.0-1.0); EOS % 0.2 % (0.0-3.0); HEMATOCRIT 40.7 % (36.0-47.0); HEMOGLOBIN 12.7 g/dl (12.0-15.5); LYMPH # 1.1 10^3/uL (1.5-5.0); LYMPH % 8.4 % (24.0-44.0); MEAN CORPUSCULAR HEMOGLOBIN 29.3 pg (27.0-33.0); MEAN CORPUSCULAR HGB CONC 31.2 g/dl (32.0-36.5); MONO # 0.8 10^3/uL (0.0-0.8); MONO % 6.2 % (0.0-5.0); NEUTROPHILS # 10.6 10^3/uL (1.5-8.5); NEUTROPHILS % 83.6 % (36.0-66.0); PLATELET COUNT, AUTOMATED 247 10^3/uL (150-450); RED BLOOD COUNT 4.33 10^6/uL (4.00-5.40); WHITE BLOOD COUNT 12.7 10^3/uL (4.0-10.0)
[2020-07-09 06:42] LABS: INR 2.98; PROTHROMBIN TIME 31.7 SECONDS (12.5-14.3)
[2020-07-09 06:54] LABS: ALBUMIN 2.7 GM/DL (3.2-5.2); BILIRUBIN,TOTAL 0.3 MG/DL (0.2-1.0); CALCIUM LEVEL 8.5 MG/DL (8.8-10.2); CREATININE FOR GFR 2.14 MG/DL (0.55-1.30); GLOMERULAR FILTRATION RATE 23.5 (>32); MAGNESIUM LEVEL 1.9 MG/DL (1.8-2.4); POTASSIUM SERUM 4.2 MEQ/L (3.5-5.1); TOTAL PROTEIN 6.9 GM/DL (6.4-8.2)
[2020-07-09] MEDS: SUCRALFATE 1 GM TAB PO SCH ×4 (07:28→21:00)
[2020-07-09] MEDS: NS 1,000 ML IV SCH ×2 (09:05→21:13)
[2020-07-09] MEDS: MEMANTINE 5MG TABLET (NAMENDA) PO SCH ×2 (09:06→21:14)
[2020-07-09] MEDS: DOCUSATE SODIUM 100MG CAPSULE PO SCH ×2 (09:06→21:14)
[2020-07-09] MEDS: VITAMIN D 1,000 INTERNATIONAL UNITS TABLET PO SCH (09:06)
[2020-07-09] MEDS: levETIRAcetam 250MG TABLET (KEPPRA) PO SCH ×2 (09:06→21:14)
[2020-07-09] MEDS: OMEPRAZOLE 20 MG CAP PO SCH (09:06)
[2020-07-09] MEDS: CALCITRIOL 0.25 MCG CAP (S0169) PO SCH (09:06)
--- NOTE | 2020-07-09 10:08 | IPNPDOC ---
Date Seen The patient was seen on 07/09/20. Progress Note SUBJECTIVE: Patient seen and examined at bedside this morning. Appears comfortable in bed. More altered today, disoriented to date. Pleasant, cooperative. Oxygenation improved, on 3L NC at 91% saturation. OBJECTIVE PHYSICAL EXAMINATION: VITAL SIGNS: please see below General: NAD, comfortable HEENT: PERRLA, EOMI, sclerae clear Neck: supple, normal ROM, no JVD Respiratory: mild crackles bilateral lung bases. CVS: RRR, normal S1, S2, no murmurs Abdo: soft, no masses, no hepatosplenomegaly, BS+, no rebound tenderness Extremities: edema mildly improved. MSK: no joint deformities, normal ROM Neuro: no focal neuro deficits, moving all 4 extremities, CN2-12 intact. Strength 5/5 in all 4 extremities. No nystagmus. Psych: calm, cooperative, AAO x 3 LABORATORY DATA, IMAGING STUDIES, MICROBIOLOGY: Please see below. DVT prophylaxis ordered?: on coumadin ASSESSMENT AND PLAN: 79-year-old female with a PMHx of HTN, A. fib (s/p Cardioversion x3, on Coumadin), Hypothyroidism, CKD3, Iron deficiency anemia, Hx of C. diff, Hx of Early Alzheimers who presented to the ER with complaints of left-sided weakness.Patient was in the emergency room on 06/12 for persistent diarrhea and was sent home after she had stable vital signs and lab work. Patient presented again to the emergency room after her daughter who was visiting her had noticed left-sided weakness. Patient denies any specific left- sided weakness. Patient reports that she felt generalized weakness. Upon arrival to emergency room, patient did not have any weakness. No tPA was administered because she had full resolution of her symptoms upon arrival to ER. Patient's hospital course was complicated after she became hypoxic, which was thought to be secondary to COVID19 pneumonia versus fluid overload. Ongoing orthostasis. PROBLEMS: #Acute hypoxic respiratory failure: 2/2 covid-19 infection. O2 demand improved to 3L. dexamethasone 6 mg IV BID. Acapella. Incentive spirometer. OOB to Chair. CT chest 07/07: pna vs atelectasis. Will defer abx as negative procalcitonin. No fever. No leukocytosis. No cough. #Pulmonary edema: improved. Stop lasix. BUN, Cr elevated. Gently IV hydration. Monitor resp status. #L sided weakness: No focal deficits on physical exam. CT head no acute abnormalities. Coumadin. ASA/lipitor. #Seizures: on 06/27, tonic clonic, L side involvement. C/w keppra. Follow up with neurology outpatient. EEG outpatient. #Orthostatic hypotension: continues to be symptomatic. VIKAS wraps. Cortisol lev el. Midodrine 2.5 mg TID. #Chronic atrial fibrillation: rate controlled. Warfarin 10 mg daily, held since 07/07. INR 3.58-> 2.98. Resume. #Supratherapeutic INR: takes 10 mg daily. Increased 07/02. D/w pharmacy. Hold warfarin 07/07. Resume at 8 mg daily on 07/09 as INR remains supratherapeutic. #Thrombocytopenia: no active bleeding #hypothyroidism: c/w levothyroxine #CKD 3: Cr elevated / covid, lasix. Stopped diuresis. Gently IVF. Monitor renal function. #Dementia: c/w memantine #hx of early Alzheimer's #hx of c.diff #Iron def anemia: hgb at baseline #GERD: PPI, carafate DVT ppx: AC with coumadin. Dispo: c/w PT / OT. Repeat COVID is positive on 07/03. Per PFS, patient's cannot be transferred to subacute rehab or assisted living facility if covid test is positive. Need a negative covid test before discharge. Repeat covid test ordered 07/09. VS, I&O, 24H, Fishbone Vital Signs/I&O Vital Signs Date Time Temp Pulse Resp B/P (MAP) Pulse Ox O2 Delivery O2 Flow Rate FiO2 07/09/20 08:00 97.5 65 20 149/70 (96) 91 Nasal Cannula 3.0 I&O- Last 24 Hours up to 6 AM 07/09/20 06:00 Intake Total 895 ml Output Total 1325 ml Balance -430 ml Laboratory Data 24H LABS Laboratory Tests 2 07/09/20 05:53: Immature Granulocyte % (Auto) 1.5, Neutrophils (%) (Auto) 83.6H, Lymphocytes (%) (Auto) 8.4L, Monocytes (%) (Auto) 6.2H, Eosinophils (%) (Auto) 0.2, Basophils (%) (Auto) 0.1, Neutrophils # (Auto) 10.6H, Lymphocytes # (Auto) 1.1L, Monocytes # (Auto) 0.8, Eosinophils # (Auto) 0.0, Basophils # (Auto) 0.0, Nucleated Red Blood Cells % (auto) 0.0, Prothrombin Time 31.7H, Prothromb Time International Ratio 2.98, Anion Gap 11, Glomerular Filtration Rate 23.5L, Calcium Level 8.5L, Magnesium Level 1.9, Total Bilirubin 0.3, Aspartate Amino Transf (AST/SGOT) 34, Alanine Aminotransferase (ALT/SGPT) 40, Alkaline Phosphatase 90, Total Protein 6.9, Albumin 2.7L, Albumin/Globulin Ratio 0.6L CBC/BMP Laboratory Tests 07/09/20 05:53 CHAS GARLAND MD Jul 09, 2020 10:08
[2020-07-09] MEDS: WARFARIN SOD 4MG TAB PO SCH (17:42)
[2020-07-09] MEDS: PRAVASTATIN 20 MG TAB PO SCH (21:14)
[2020-07-10] VITALS (16 sets, daily range): BP systolic 106–181; BP diastolic 70–89; O2SAT 84–99
[2020-07-10] MEDS: COMBIVENT RESPIMAT 100-20MCG INHALER 4GM INH SCH ×4 (02:00→20:51)
[2020-07-10] MEDS: MIDODRINE 2.5 MG TAB PO SCH ×3 (05:37→17:16)
[2020-07-10] MEDS: dexameTHASONE 4 MG/ML 1ML VIAL (J1100 PER 1MG) IV SCH (05:37)
[2020-07-10] MEDS: LEVOTHYROXINE 88MCG TABLET (0.088 MG) PO SCH (05:37)
[2020-07-10 06:05] LABS: BASO % 0.2 % (0.0-1.0); EOS % 0.1 % (0.0-3.0); HEMATOCRIT 37.9 % (36.0-47.0); HEMOGLOBIN 11.8 g/dl (12.0-15.5); LYMPH % 9.8 % (24.0-44.0); MEAN CORPUSCULAR HEMOGLOBIN 29.6 pg (27.0-33.0); MEAN CORPUSCULAR HGB CONC 31.1 g/dl (32.0-36.5); MEAN CORPUSCULAR VOLUME 95.2 fl (80.0-96.0); MONO # 0.6 10^3/uL (0.0-0.8); MONO % 5.7 % (0.0-5.0); NEUTROPHILS # 8.6 10^3/uL (1.5-8.5); NEUTROPHILS % 82.2 % (36.0-66.0); PLATELET COUNT, AUTOMATED 215 10^3/uL (150-450); RED BLOOD COUNT 3.98 10^6/uL (4.00-5.40); WHITE BLOOD COUNT 10.4 10^3/uL (4.0-10.0)
[2020-07-10 06:26] LABS: INR 1.86; PROTHROMBIN TIME 21.8 SECONDS (12.5-14.3)
[2020-07-10 06:35] LABS: ALBUMIN 2.2 GM/DL (3.2-5.2); BILIRUBIN,TOTAL 0.4 MG/DL (0.2-1.0); CALCIUM LEVEL 8.1 MG/DL (8.8-10.2); CREATININE FOR GFR 1.64 MG/DL (0.55-1.30); POTASSIUM SERUM 4.1 MEQ/L (3.5-5.1); TOTAL PROTEIN 6.5 GM/DL (6.4-8.2)
[2020-07-10] MEDS: SUCRALFATE 1 GM TAB PO SCH ×4 (10:32→20:25)
[2020-07-10] MEDS: levETIRAcetam 250MG TABLET (KEPPRA) PO SCH ×2 (10:36→20:27)
[2020-07-10] MEDS: OMEPRAZOLE 20 MG CAP PO SCH (10:36)
[2020-07-10] MEDS: DOCUSATE SODIUM 100MG CAPSULE PO SCH ×2 (10:37→20:27)
[2020-07-10] MEDS: CALCITRIOL 0.25 MCG CAP (S0169) PO SCH (10:37)
[2020-07-10] MEDS: VITAMIN D 1,000 INTERNATIONAL UNITS TABLET PO SCH (10:37)
[2020-07-10] MEDS: MEMANTINE 5MG TABLET (NAMENDA) PO SCH ×2 (10:37→20:27)
--- NOTE | 2020-07-10 15:03 | IPNPDOC ---
Date Seen The patient was seen on 07/10/20. Progress Note SUBJECTIVE: Patient seen and examined at bedside this morning. Appears comfortable in bed. AAO x 3. Pleasant, cooperative. Oxygenation improved, on 3L NC at 94% saturation. OBJECTIVE PHYSICAL EXAMINATION: VITAL SIGNS: please see below General: NAD, comfortable HEENT: PERRLA, EOMI, sclerae clear Neck: supple, normal ROM, no JVD Respiratory: mild crackles bilateral lung bases. CVS: RRR, normal S1, S2, no murmurs Abdo: soft, no masses, no hepatosplenomegaly, BS+, no rebound tenderness Extremities: edema mildly improved. MSK: no joint deformities, normal ROM Neuro: no focal neuro deficits, moving all 4 extremities, CN2-12 intact. Strength 5/5 in all 4 extremities. No nystagmus. Psych: calm, cooperative, AAO x 3 LABORATORY DATA, IMAGING STUDIES, MICROBIOLOGY: Please see below. DVT prophylaxis ordered?: on coumadin ASSESSMENT AND PLAN: 79-year-old female with a PMHx of HTN, A. fib (s/p Cardioversion x3, on Coumadin), Hypothyroidism, CKD3, Iron deficiency anemia, Hx of C. diff, Hx of Early Alzheimers who presented to the ER with complaints of left-sided weakness.Patient was in the emergency room on 06/12 for persistent diarrhea and was sent home after she had stable vital signs and lab work. Patient presented again to the emergency room after her daughter who was visiting her had noticed left-sided weakness. Patient denies any specific left- sided weakness. Patient reports that she felt generalized weakness. Upon arrival to emergency room, patient did not have any weakness. No tPA was administered because she had full resolution of her symptoms upon arrival to ER. Patient's hospital course was complicated after she became hypoxic, which was thought to be secondary to COVID19 pneumonia versus fluid overload. Ongoing orthostasis. PROBLEMS: #Acute hypoxic respiratory failure: 2/2 covid-19 infection. O2 demand improved to 3L. dexamethasone 6 mg IV daily (down from BID). Acapella. Incentive spirometer. OOB to Chair. CT chest 07/07: pna vs atelectasis. Will defer abx as negative procalcitonin. No fever. No leukocytosis. No cough. #Pulmonary edema: improved. Stop lasix. BUN, Cr elevated. Gently IV hydration. Monitor resp status. #L sided weakness: No focal deficits on physical exam. CT head no acute abnormalities. Coumadin. ASA/lipitor. #Seizures: on 06/27, tonic clonic, L side involvement. C/w keppra. Follow up with neurology outpatient. EEG outpatient. #Orthostatic hypotension: dizziness improved after increase in midorine. Fluid. VIKAS wraps. Midodrine 2.5 mg TID. Hold lasix. #Chronic atrial fibrillation: rate controlled. Warfarin 10 mg daily, held since 07/07. INR 3.58-> 2.98. Resume. #Supratherapeutic INR: takes 10 mg daily. Increased 07/02. D/w pharmacy. Hold warfarin 07/07-. Resume at 8 mg daily on 07/09, repeat INR 1.98. Trend. #Thrombocytopenia: no active bleeding #hypothyroidism: c/w levothyroxine #JAY on CKD 3: Cr elevated 2/ covid, lasix. Cr improved DC IVF. #Dementia: c/w memantine #hx of early Alzheimer's #hx of c.diff #Iron def anemia: hgb at baseline #GERD: PPI, carafate DVT ppx: AC with coumadin. Dispo: c/w PT / OT. Needs rehab. Covid negative on 07/09/20. VS, I&O, 24H, Fishbone Vital Signs/I&O Vital Signs Date Time Temp Pulse Resp B/P (MAP) Pulse Ox O2 Delivery O2 Flow Rate FiO2 07/10/20 12:00 97.2 61 22 142/77 (98) 97 Nasal Cannula 3.0 l I&O- Last 24 Hours up to 6 AM 07/10/20 06:00 Intake Total 1965 ml Output Total 400 ml Balance 1565 ml Laboratory Data 24H LABS Laboratory Tests 2 07/10/20 05:47: Immature Granulocyte % (Auto) 2.0, Neutrophils (%) (Auto) 82.2H, Lymphocytes (%) (Auto) 9.8L, Monocytes (%) (Auto) 5.7H, Eosinophils (%) (Auto) 0.1, Basophils (%) (Auto) 0.2, Neutrophils # (Auto) 8.6H, Lymphocytes # (Auto) 1.0L, Monocytes # (Auto) 0.6, Eosinophils # (Auto) 0.0, Basophils # (Auto) 0.0, Nucleated Red Blood Cells % (auto) 0.0, Prothrombin Time 21.8H, Prothromb Time International Ratio 1.86, Anion Gap 7L, Glomerular Filtration Rate 32.0, Calcium Level 8.1L, Magnesium Level 2.0, Total Bilirubin 0.4, Aspartate Amino Transf (AST/SGOT) 21, Alanine Aminotransferase (ALT/SGPT) 32, Alkaline Phosphatase 86, Total Protein 6.5, Albumin 2.2L, Albumin/Globulin Ratio 0.5L CBC/BMP Laboratory Tests 07/10/20 05:47 CHAS GARLAND MD Jul 10, 2020 15:03
[2020-07-10] MEDS: WARFARIN SOD 4MG TAB PO SCH (17:17)
[2020-07-10] MEDS: PRAVASTATIN 20 MG TAB PO SCH (20:27)
[2020-07-11] VITALS (10 sets, daily range): BP systolic 98–128; BP diastolic 52–78; O2SAT 86–99
[2020-07-11] MEDS: COMBIVENT RESPIMAT 100-20MCG INHALER 4GM INH SCH ×3 (02:00→14:00)
[2020-07-11 05:59] LABS: BASO % 0.3 % (0.0-1.0); EOS # 0.3 10^3/uL (0.0-0.5); EOS % 3.5 % (0.0-3.0); HEMATOCRIT 37.8 % (36.0-47.0); HEMOGLOBIN 11.6 g/dl (12.0-15.5); LYMPH # 1.6 10^3/uL (1.5-5.0); LYMPH % 17.8 % (24.0-44.0); MEAN CORPUSCULAR HEMOGLOBIN 29.6 pg (27.0-33.0); MEAN CORPUSCULAR HGB CONC 30.7 g/dl (32.0-36.5); MEAN CORPUSCULAR VOLUME 96.4 fl (80.0-96.0); MONO # 0.7 10^3/uL (0.0-0.8); MONO % 7.2 % (0.0-5.0); NEUTROPHILS # 6.2 10^3/uL (1.5-8.5); NEUTROPHILS % 66.8 % (36.0-66.0); PLATELET COUNT, AUTOMATED 202 10^3/uL (150-450); RED BLOOD COUNT 3.92 10^6/uL (4.00-5.40); WHITE BLOOD COUNT 9.2 10^3/uL (4.0-10.0)
[2020-07-11] MEDS: MIDODRINE 2.5 MG TAB PO SCH ×2 (06:04→14:07)
[2020-07-11] MEDS: LEVOTHYROXINE 88MCG TABLET (0.088 MG) PO SCH (06:04)
[2020-07-11 06:13] LABS: INR 1.51; PROTHROMBIN TIME 18.5 SECONDS (12.5-14.3)
[2020-07-11 06:32] LABS: ALBUMIN 2.1 GM/DL (3.2-5.2); BILIRUBIN,TOTAL 0.3 MG/DL (0.2-1.0); CALCIUM LEVEL 8.2 MG/DL (8.8-10.2); CREATININE FOR GFR 1.57 MG/DL (0.55-1.30); GLOMERULAR FILTRATION RATE 33.7 (>32); TOTAL PROTEIN 6.1 GM/DL (6.4-8.2)
[2020-07-11] MEDS ORDERED: dexameTHASONE 4 MG/ML 1ML VIAL (J1100 PER 1MG) IV SCH (09:00)
[2020-07-11] MEDS ORDERED: KEPP250T5 PO (09:42)
[2020-07-11] MEDS ORDERED: PRAV1TAB39 PO (09:42)
[2020-07-11] MEDS ORDERED: PRED10TA2 PO (09:42)
[2020-07-11] MEDS ORDERED: MIDO2.5T PO (09:42)
[2020-07-11] MEDS ORDERED: SUCR1TA PO (09:42)
[2020-07-11] MEDS ORDERED: JANT4TAB PO (09:42)
[2020-07-11] MEDS: SUCRALFATE 1 GM TAB PO SCH ×2 (10:00→12:00)
[2020-07-11] MEDS: OMEPRAZOLE 20 MG CAP PO SCH (11:09)
[2020-07-11] MEDS: DOCUSATE SODIUM 100MG CAPSULE PO SCH (11:10)
[2020-07-11] MEDS: MEMANTINE 5MG TABLET (NAMENDA) PO SCH (11:10)
[2020-07-11] MEDS: levETIRAcetam 250MG TABLET (KEPPRA) PO SCH (11:10)
[2020-07-11] MEDS: CALCITRIOL 0.25 MCG CAP (S0169) PO SCH (11:11)
[2020-07-11] MEDS: VITAMIN D 1,000 INTERNATIONAL UNITS TABLET PO SCH (11:19)
--- NOTE | 2020-07-11 13:08 | DS.PDOC ---
Discharge Summary General Date of Admission Jun 15, 2020 at 13:36 Date of Discharge 07/11/2020 Discharge Summary PROCEDURES PERFORMED DURING STAY: [None]. ADMITTING DIAGNOSES / DISCHARGE DIAGNOSES: Acute hypoxic respiratory failure - possibly 2/2 COVID19, less likely 2/2 fluid overload COVID19 positive Reported left sided weakness - possibly 2/2 TIA, unlikely 2/2 CVA Seizures Orthostatic hypotension A. fib Thrombocytopenia Hypothyroidism s/p Hyponatremia (mild) - Possibly 2/2 volume loss 2/2 recent diarrhea CKD3 Dementia Iron deficiency anemia Hx of C. Diff Hx of Early Alzheimers GERD DVT prophylaxis COMPLICATIONS/CHIEF COMPLAINT: Left sided weakness HISTORY OF PRESENT ILLNESS: Patient is 79-year-old female with a PMHx of HTN, A. fib (s/p Cardioversion x3, on Coumadin), Hypothyroidism, CKD3, Iron deficiency anemia, Hx of C. diff, Hx of Early Alzheimers , who presented to the emergency room with complaints of left-sided weakness. Patient was in the ER on 06/12 for persistent diarrhea and was sent home after she had stable vital signs and lab work. Patient presented again to the ER after her daughter who was visiting her had noticed left-sided weakness. Patient denies any specific left-sided weakness. Patient reports that she felt generalized weakness. Upon arrival to ER, patient did not have any weakness. No tPA was administered because she had full resolution of her symptoms upon arrival to ER. Patient's hospital course was complicated after she became hypoxic, which was thought to be secondary to COVID19 pneumonia versus fluid overload. HOSPITAL COURSE: Acute hypoxic respiratory failure - possibly 2/2 COVID19, less likely 2/2 fluid overload - Over the course of the week. Her oxygenation requirement has improved; currently she is on nasal cannula 2 L - Inflammatory markers noted - Will DC Dexamethasone; will start Prednisone taper COVID19 positive - c/w incentive spirometry / acapella - c/w supportive care and contact/droplet precautions - s/p Levaquin; PCT negative Reported left sided weakness - possibly 2/2 TIA, unlikely 2/2 CVA - Patient presented to the ER with reported left-sided weakness as per her daughter - Physical does not reveal any focal deficits - Patient is fully oriented to person, place and time - INR noted to be subtherapeutic - CT head 06/13: No acute intracranial abnormality. Vascular calcification and mild volume loss again noted. - Imaging reviewed / ECHO without thrombus - c/w Coumadin - c/w ASA / Atorvastatin Seizures - Patient had a witnessed seizure on 06/27 involving her left side, tonic- clonic, lasting ~2 minutes, followed by a post-ictal period - No evidence of further seizures - No focal deficits noted post-seizure - c/w Keppra 500; adjusted to PO - Discussed with Neurology; will have outpatient follow up with Neurology; will likely require EEG as an outpatient Orthostatic hypotension - Asymptomatic - Hx of HTN - s/p BP medications - Medications reviewed; s/p nortriptyline - c/w VIKAS wraps and Midodrine A. fib - Currently patient is rate controlled - INR sub-therapeutic - s/p Metoprolol with hold parameters - c/w full anticoagulation with Coumadin at adjusted dose Thrombocytopenia - No evidence of bleeding Hypothyroidism - c/w Levothyroxine s/p Hyponatremia (mild) - Possibly 2/2 volume loss 2/2 recent diarrhea CKD3 - Creatinine appears to be at baseline Dementia - c/w Namenda Iron deficiency anemia - Hg at baseline Hx of C. Diff Hx of Early Alzheimers GERD - c/w Omeprazole and Carafate DVT prophylaxis - c/w full anticoagulation with Coumadin DISCHARGE MEDICATIONS: Please see below. ALLERGIES: Please see below. PHYSICAL EXAMINATION ON DISCHARGE: Vitals (See below) General: Patient sitting up in bed, appears to be comfortable, awake, alert and oriented 3 HEENT: NC, AT CVS: +S1S2 Lungs: There appears to be fair air entry bilaterally without any evidence of rhonchi, crackles or wheezing Abdomen: Abdomen remains soft without any appreciable tenderness or distention Extremities: Lower extremities do not reveal any pitting edema, - Calf tendernes s LABORATORY DATA: Please see below. ACTIVITY: [As tolerated]. DISCHARGE PLAN: Follow up with PCP within 7 days Remain compliant with treatment plan and medications Return to the ER if you experience any problems DISPOSITION: [facility] DISCHARGE CONDITION: [Stable]. TIME SPENT ON DISCHARGE: 35 minutes. Vital Signs/I&Os Vital Signs Date Time Temp Pulse Resp B/P (MAP) Pulse Ox O2 Delivery O2 Flow Rate FiO2 07/11/20 08:00 96.8 60 20 120/68 (85) 92 Nasal Cannula 3.0 I&O- Last 24 Hours up to 6 AM 07/11/20 06:00 Intake Total 395 ml Output Total 0 ml Balance 395 ml Laboratory Data Labs 24H Laboratory Tests 2 07/11/20 05:44: Immature Granulocyte % (Auto) 4.4H, Neutrophils (%) (Auto) 66.8H, Lymphocytes (%) (Auto) 17.8L, Monocytes (%) (Auto) 7.2H, Eosinophils (%) (Auto) 3.5H, Basophils (%) (Auto) 0.3, Neutrophils # (Auto) 6.2, Lymphocytes # (Auto) 1.6, Monocytes # (Auto) 0.7, Eosinophils # (Auto) 0.3, Basophils # (Auto) 0.0, Nucleated Red Blood Cells % (auto) 0.0, Prothrombin Time 18.5H, Prothromb Time International Ratio 1.51, Anion Gap 8, Glomerular Filtration Rate 33.7, Calcium Level 8.2L, Magnesium Level 2.0, Total Bilirubin 0.3, Aspartate Amino Transf (AST/SGOT) 24, Alanine Aminotransferase (ALT/SGPT) 26, Alkaline Phosphatase 92, Total Protein 6.1L, Albumin 2.1L, Albumin/Globulin Ratio 0.5L CBC/BMP Laboratory Tests 07/11/20 05:44 Discharge Medications Scheduled Calcitriol (Calcitriol) 0.25 Mcg Capsule, 0.25 MCG PO DAILY, (Reported) Cholecalciferol (Vitamin D3) (Vitamin D3) 2,000 Unit Tab, 2,000 UNIT PO DAILY, (Reported) Docusate Sodium (Docusate Sodium) 100 Mg Capsule, 100 MG PO BID, (Reported) Levetiracetam (Keppra) 250 Mg Tablet, 500 MG PO BID Levothyroxine Sodium (Levothyroxine Sodium) 88 Mcg Tab, 88 MCG PO DAILY, (Reported) Memantine HCl (Namenda Xr) 28 Mg Cap.spr.24, 28 MG PO DAILY, (Reported) Midodrine HCl (Midodrine HCl) 2.5 Mg Tablet, 2.5 MG PO TID@0600,1400,1800 Pravastatin Sodium (Pravachol) 20 Mg Tablet, 20 MG PO QHS Prednisone (Prednisone) 10 Mg Tablet, 10 MG PO TAPER Take 4 tabs daily x 3 days, then 3 tabs daily x 3 days, then 2 tabs daily x 3 days, then 1 tab daily x 3 days and stop Sucralfate (Sucralfate) 1 Gm Tablet, 1 GM PO ACHS Warfarin Sodium (Jantoven) 4 Mg Tablet, 8 MG PO DAILY@17 Scheduled PRN Acetaminophen (Tylenol Extra Strength) 500 Mg Tablet, 500 MG PO Q6H PRN for PAIN OR FEVER, (Reported) Miscellaneous Medications Dexlansoprazole (Dexilant) 30 Mg Cap., (Reported) Magnesium Citrate (Magnesium Citrate) 100 Mg Tablet, 200 MG PO, (Reported) Allergies Coded Allergies: Penicillins (Verified Allergy, Intermediate, hives, 06/12/20) rivastigmine (Verified Allergy, Intermediate, HIVES, 06/16/20) hydrochlorothiazide (Verified Adverse Reaction, Intermediate, HYPOTENSION, 06/16/20) clindamycin (Verified Adverse Reaction, Mild, abdominal pain, 06/16/20) rivaroxaban (Verified Adverse Reaction, Mild, GI UPSET, 06/16/20) triamterene (Verified Adverse Reaction, Unknown, "couldn't hold my head up", 06/12/20) CARLINE VELASQUEZ MD Jul 11, 2020 13:08
== END 2020-07-11 15:36 | DRG 177 ==
LOC: M ED 14:51 → EDBD 14:51 → M ED INP 14:52 → EEVIPCON 14:52 → ENRESERV 20:38 → M 4MAIN 22:00 → OBSVTOIN 06-15 13:36 → M 4MAIN 06-15 21:30 → M MSPAV 07-03 15:15 → M PCU 07-07 14:00
PROVIDERS: ADMIT Internal Medicine; ATTEND Internal Medicine
DX: U07.1 COVID-19 (principal); J96.01 Acute respiratory failure with hypoxia; E87.1 Hypo-osmolality and hyponatremia; G45.9 Transient cerebral ischemic attack, unspecified; N17.9 Acute kidney failure, unspecified; I48.20 Chronic atrial fibrillation, unspecified; N18.30 Chronic kidney disease, stage 3 unspecified; R56.9 Unspecified convulsions; E03.9 Hypothyroidism, unspecified; K21.9 Gastro-esophageal reflux disease without esophagitis; D50.9 Iron deficiency anemia, unspecified; F02.80 Dementia in other diseases classified elsewhere, unspecified severity, without behavioral disturbance, psychotic disturbance, mood disturbance, and anxiety; G30.9 Alzheimer's disease, unspecified; I95.1 Orthostatic hypotension; D69.6 Thrombocytopenia, unspecified; Z79.899 Other long term (current) drug therapy; Z88.0 Allergy status to penicillin; Z88.8 Allergy status to other drugs, medicaments and biological substances